=== PATIENT | female | born 1955 | race Caucasian/White ===

== ENCOUNTER → 2016-12-15 | Outpatient (CLI) | payer OTHER, MEDICAID | LOC: GIMAGING 14:56 | PROVIDERS: ATTEND Internal Medicine | DX: Z13.83 Encounter for screening for respiratory disorder NEC (principal) | CPT/HCPCS: 71020-PO ==

== ENCOUNTER 2017-03-03 12:57 | Emergency (ER) | payer OTHER, MEDICAID ==
[2017-03-03 13:14] VITALS: RESP 20; TEMP 98
[2017-03-03] MEDS ORDERED: IPRATROPIUM/ALBUTEROL 3 ML DEYVIAL IH ONE (14:02)
--- NOTE | 2017-03-03 14:06 | EDPHY ---
H & P Stated Complaint: here for multi system complaints- please call [phone] Source: Patient - Personal History Current Tetanus Diphtheria and Acellular Pertussis (TDAP): Unsure - Medical/Surgical History Hx Asthma: Yes Hx Chronic Respiratory Disease: No Hx Diabetes: No Hx Cardiac Disease: No Hx Renal Disease: No Hx Cirrhosis: No Hx Alcoholism: No Hx HIV/AIDS: No Hx Splenectomy or Spleen Trauma: No Other PMH: aortic iliac stents, cardiac cath 05/14/2015,angioseal, laminectomy, right knee injury, LEFT SHOULDER SURG. chronic pain/PTSD/HEad injury - Family History Significant Family History: No pertinent family hx - Social History Smoking Status: Former smoker Time Seen by Provider: 03/03/17 13:28 HPI/ROS: CHIEF COMPLAINT: Sore throat, cough, leg swelling History by patient HISTORY OF PRESENT ILLNESS: 61-year-old woman with a history of coronary artery disease, bilateral femoral stents, former smoker he has been having several months of scratchy throat, hoarse voice and cough and has been on multiple rounds of antibiotics presents today because while she was on vacation she noticed new leg swelling and she has had persistent cough and white exudate in her throat. Patient has been using inhalers and nebulizers felt relief until last night when the nebulizer seem to help somewhat. She denies any fever. She also states that she has been having frequent urination. Patient is somewhat angry and scattered in her history and states that she has a history of a head injury so getting a clear history is difficult. REVIEW OF SYSTEMS: As in HPI, and all other systems reviewed and are negative (Rena Lund) - Physical Exam Exam: General Appearance: Alert, nontoxic appearing, speaking full sentences. Eyes: Pupils equal and round no pallor or injection. ENT, Mouth: Mucous membranes moist. Respiratory: Normal, effort, lungs are clear to auscultation. Diffuse wheezes and rhonchi. Cardiovascular: Regular rate and rhythm. S1, S2 Gastrointestinal: Abdomen is soft and nontender, no masses, bowel sounds normal. Back: No CVA tenderness, no bony tenderness Neurological: Awake, alert and oriented x 3, no pronator drift, normal gait, no pronator drift Skin: Warm and dry, no rashes. Musculoskeletal: Neck is supple nontender. No deformities. Extremitie:s full range of motion, 1+ pitting edema to the knees, DP and PT pulses 2+ and equal bilaterally, feet are warm Psychiatric: Patient has normal affect, there is no agitation. (Rena Lund) Constitutional: Initial Vital Signs Temperature (C) 36.6 C 03/03/17 13:11 Heart Rate 85 03/03/17 13:11 Respiratory Rate 20 03/03/17 13:11 Blood Pressure 125/76 H 03/03/17 13:11 O2 Sat (%) 95 03/03/17 13:11 O2 Delivery Mode Room Air Allergies/Adverse Reactions: Penicillins Allergy (Severe, Verified 12/30/15 11:44) ANAPHYLACTIC meperidine HCl [From Demerol] Allergy (Intermediate, Verified 12/30/15 11:44) ANXIOUS prednisone [Prednisone] Allergy (Intermediate, Verified 12/30/15 11:44) Hives Sulfa (Sulfonamide Antibiotics) Allergy (Intermediate, Verified 12/30/15 11:44) NAUSEA clopidogrel bisulfate [From Plavix] Allergy (Verified 12/30/15 11:44) Quinolones Allergy (Verified 12/30/15 11:44) ofptiray dye Allergy (Uncoded 11/13/15 13:09) steroids Allergy (Uncoded 11/13/15 13:09) Home Medications: Medication Instructions Recorded Aspirin [Aspirin 81mg (*)] 81 mg PO DAILY 05/14/15 Diclofenac Sodium 1% [Voltaren Gel 2 tomasa TP QID 05/14/15 (*)] Ergocalciferol (Vitamin D2) 400 unit PO DAILY 05/14/15 [Vitamin D2] Herbals/Supplements -Info Only 1 ea PO DAILY 05/14/15 Multivitamins [Multivitamin (*)] 1 each PO DAILY 05/14/15 Pantoprazole Sodium [Protonix 40mg 40 mg PO BID 05/14/15 (*)] clonazePAM [Klonopin (*)] 0.5 mg PO QID 05/14/15 oxyCODONE IR [Oxycodone Ir (*)] 30 mg PO Q4H PRN 05/14/15 Hydromorphone HCl [Exalgo] 12 mg PO DAILY 05/15/15 Effient 05/31/15 Neurontin 05/31/15 Clindamycin HCl [Clindamycin] 300 mg PO 12/30/15 Estradiol [Estradiol 1 MG (RX)] 1 mg PO DAILY 12/30/15 Ondansetron Odt [Zofran Odt] 4 mg PO Q6 PRN #10 tab 12/30/15 Medical Decision Making - Diagnostics Imaging Results: Imaging Impressions Chest X-Ray 03/03/17 13:59 Impression: Minimal left basilar atelectasis. Otherwise negative. ED Course/Re-evaluation: 61-year-old woman with coronary disease and vascular disease who presents today with multitude of complaints, in particular cough who is well appearing, without evidence of hypoxia or systemic toxicity and normal vital signs. In order to make sure that the patient's pulmonary symptoms and leg swelling were not related to underlying heart failure ECG, chest x-ray and labs were performed. ECG showed no evidence of acute ischemia. Chest x-ray showed evidence of hyperinflation but no evidence of pneumonia or CHF. I transferred care to Dr. Epperson pending results patient's laboratory tests for final disposition. (Rena Lund) Patient's care transferred to al at 3:30 p.m.. Discussed with the patient the results of her blood tests and x-rays. Overall she is well-appearing and has a normal exam and vital signs. I suggested that her wheezing that improved with albuterol and lack of pulmonary findings on x-ray other than hyperinflation suggests COPD. She has a history of smoking and currently smells like smoke. She denies this. I offered to treat with a short course of steroids which she refused because she states that steroids make her feel crazy. We discussed long versus short-term use. She states that she has been on multiple antibiotics recently provided by her primary physician and that they have not improved her symptoms. She also wanted to provide a stool sample to be checked for C diff. This was done. She also asked me why her face was bruising after Botox injections and we discussed the possible complications and side effects of such injections. She is not happy that we do not have any other options for treatment. She is essentially refusing my treatment plan and does not agree with my diagnosis of COPD. I will refer her back to her primary doctor [facility] at this time. We discussed indications for returning to the emergency department. (Juanito Epperson) Differential Diagnosis: Partial list of the Differential diagnosis considered include but were not limited to; anxiety, COPD, bronchitis, pneumonia, bruising and although unlikely based on the history and physical exam, I also considered PE, acute coronary disease, DVT, cellulitis. I discussed these differential diagnoses and the plan with the patient as well as the usual and expected course. The patient understands that the diagnosis is provisional and that in medicine we are not always correct and that further workup is often warranted. Usual and customary warnings were given. All of the patient's questions were answered. The patient was instructed to return to the emergency department should the symptoms at all worsen or return, otherwise to followup with the physician as we discussed. (Juanito Epperson) - Data Points Laboratory Results: Laboratory Results 03/03/17 14:45 03/03/17 14:45 03/03/17 03/03/17 03/03/17 Unknown 15:05 14:45 WBC RBC Hgb Hct MCV MCH MCHC RDW Plt Count MPV Neut % (Auto) Lymph % (Auto) [place] % (Auto) Eos % (Auto) Baso % (Auto) Nucleat RBC Rel Count Absolute Neuts (auto) Absolute Lymphs (auto) Absolute Monos (auto) Absolute Eos (auto) Absolute Basos (auto) Absolute Nucleated RBC Immature Gran % Immature Gran # Sodium Potassium Chloride Carbon Dioxide Anion Gap BUN Creatinine Estimated GFR Glucose Calcium Magnesium Total Bilirubin Conjugated Bilirubin Unconjugated Bilirubin AST ALT Alkaline Phosphatase Troponin I NT-Pro-B Natriuret Pep Total Protein Albumin Urine Color YELLOW Urine Appearance CLEAR Urine pH 6.5 (5.0-7.5) Ur Specific [place] <= 1.005 (1.002-1.030) Urine Protein NEGATIVE (NEGATIVE) Urine Ketones NEGATIVE (NEGATIVE) Urine Blood NEGATIVE (NEGATIVE) Urine Nitrate NEGATIVE (NEGATIVE) Urine Bilirubin NEGATIVE (NEGATIVE) Urine Urobilinogen 0.2 EU EU (0.2-1.0) Ur Leukocyte Esterase NEGATIVE (NEGATIVE) Urine RBC NONE SEEN /hpf /hpf (0-3) Urine WBC NONE SEEN /hpf /hpf (0-3) Ur Epithelial Cells TRACE /lpf /lpf (NONE-1+) Urine Glucose NEGATIVE (NEGATIVE) Group A Strep Screen NEGATIVE (NEGATIVE) Group A Strep DNA Pending 03/03/17 03/03/17 14:45 14:45 WBC 5.57 10^3/uL 10^3/uL (3.80-9.50) RBC 3.87 10^6/uL L 10^6/uL (4.18-5.33) Hgb 12.7 g/dL g/dL (12.6-16.3) Hct 36.4 % L % (38.0-47.0) MCV 94.1 fL fL (81.5-99.8) MCH 32.8 pg pg (27.9-34.1) MCHC 34.9 g/dL g/dL (32.4-36.7) RDW 12.5 % % (11.5-15.2) Plt Count 178 10^3/uL 10^3/uL (150-400) MPV 9.0 fL fL (8.7-11.7) Neut % (Auto) 60.7 % % (39.3-74.2) Lymph % (Auto) 27.3 % % (15.0-45.0) [place] % (Auto) 9.9 % % (4.5-13.0) Eos % (Auto) 0.5 % L % (0.6-7.6) Baso % (Auto) 1.1 % % (0.3-1.7) Nucleat RBC Rel Count 0.0 % % (0.0-0.2) Absolute Neuts (auto) 3.38 10^3/uL 10^3/uL (1.70-6.50) Absolute Lymphs (auto) 1.52 10^3/uL 10^3/uL (1.00-3.00) Absolute Monos (auto) 0.55 10^3/uL 10^3/uL (0.30-0.80) Absolute Eos (auto) 0.03 10^3/uL 10^3/uL (0.03-0.40) Absolute Basos (auto) 0.06 10^3/uL 10^3/uL (0.02-0.10) Absolute Nucleated RBC 0.00 10^3/uL 10^3/uL (0-0.01) Immature Gran % 0.5 % % (0.0-1.1) Immature Gran # 0.03 10^3/uL 10^3/uL (0.00-0.10) Sodium 136 mEq/L mEq/L (134-144) Potassium 4.1 mEq/L mEq/L (3.5-5.2) Chloride 102 mEq/L mEq/L (97-110) Carbon Dioxide 24 mEq/l mEq/l (22-31) Anion Gap 10 mEq/L mEq/L (8-16) BUN 11 mg/dL mg/dL (7-23) Creatinine 0.7 mg/dL mg/dL (0.6-1.0) Estimated GFR > 60 Glucose 96 mg/dL mg/dL (70-100) Calcium 8.3 mg/dL L mg/dL (8.5-10.4) Magnesium 1.8 mg/dL mg/dL (1.6-2.3) Total Bilirubin 0.4 mg/dL mg/dL (0.1-1.4) Conjugated Bilirubin 0.2 mg/dL mg/dL (0.0-0.5) Unconjugated Bilirubin 0.2 mg/dL mg/dL (0.0-1.1) AST 22 IU/L IU/L (14-46) ALT 39 IU/L IU/L (9-52) Alkaline Phosphatase 49 IU/L IU/L (38-126) Troponin I < 0.012 ng/mL ng/mL (0-0.034) NT-Pro-B Natriuret Pep 371 pg/mL H pg/mL (0-125) Total Protein 5.8 g/dL L g/dL (6.3-8.2) Albumin 3.5 g/dL g/dL (3.5-5.0) Urine Color Urine Appearance Urine pH Ur Specific [place] Urine Protein Urine Ketones Urine Blood Urine Nitrate Urine Bilirubin Urine Urobilinogen Ur Leukocyte Esterase Urine RBC Urine WBC Ur Epithelial Cells Urine Glucose Group A Strep Screen Group A Strep DNA Medications Given: Discontinued Medications Albuterol/Ipratropium (Duoneb) 3 ml IH EDNOW ONE Stop: 03/03/17 14:03 Last Admin: 03/03/17 14:59 Dose: 3 ml Departure - Departure Disposition: Home, Routine, Self-Care Clinical Impression: Reactive airway disease Qualifiers: Asthma severity: mild persistent Asthma complication type: with acute exacerbation Qualified Code(s): J45.31 - Mild persistent asthma with (acute) exacerbation Condition: Fair Instructions: Reactive Airways Disease (ED) Referrals: NONE *PRIMARY CARE P,. [Primary Care Provider] - As per Instructions Lalito Acuna MD [Medical Doctor] - As per Instructions
--- NOTE | 2017-03-03 14:50 | CPEKG ---
Heart Rate: 68 RR Interval: 882 P-R Interval: 176 QRSD Interval: 90 QT Interval: 404 QTC Interval: 430 P [place]: 64 QRS [place]: 3 T Wave [place]: 33 EKG Severity - NORMAL ECG - EKG Impression: SINUS RHYTHM Electronically Signed By: Srinivasan Pelaez 05-Mar-2017 11:23:19
[2017-03-03 14:53] LABS: % IMMATURE GRANULYOCYTES 0.5 % (0.0-1.1); ABSOLUTE IMMATURE GRANULOCYTES 0.03 10^3/uL (0.00-0.10); ADD DIFF? NO; ADD MORPH? NO; ADD SCAN? NO; ATYPICAL LYMPHOCYTE FLAG 10 (0-99); FRAGMENT RBC FLAG 0 (0-99); HEMATOCRIT 36.4 % (38.0-47.0); HEMOGLOBIN 12.7 g/dL (12.6-16.3); LEFT SHIFT FLG 0 (0-99); LIPEMIA HEMOLYSIS FLAG 90 (0-99); MEAN CELL HEMOGLOBIN 32.8 pg (27.9-34.1); MEAN CELL HEMOGLOBIN CONCENTR. 34.9 g/dL (32.4-36.7); MEAN CELL VOLUME 94.1 fL (81.5-99.8); PLATELET CLUMPS FLAG 10 (0-99); PLATELET COUNT 178 10^3/uL (150-400); RED BLOOD CELL COUNT 3.87 10^6/uL (4.18-5.33); RED CELL DISTRIBUTION WIDTH 12.5 % (11.5-15.2)
[2017-03-03 15:05] LABS: ALANINE AMINOTRANSFERASE 39 IU/L (9-52); ALBUMIN 3.5 g/dL (3.5-5.0); ALKALINE PHOSPHATASE 49 IU/L (38-126); ANION GAP 10 mEq/L (8-16); ASPARTATE AMINOTRANSFERASE 22 IU/L (14-46); BILIRUBIN,TOTAL 0.4 mg/dL (0.1-1.4); BILIRUBIN-CONJUGATED 0.2 mg/dL (0.0-0.5); BILIRUBIN-UNCONJUGATED 0.2 mg/dL (0.0-1.1); CALCIUM 8.3 mg/dL (8.5-10.4); CARBON DIOXIDE 24 mEq/l (22-31); CHLORIDE 102 mEq/L (97-110); CREATININE 0.7 mg/dL (0.6-1.0); GLOMERULAR FILTRATION RATE > 60; GLUCOSE 96 mg/dL (70-100); MAGNESIUM 1.8 mg/dL (1.6-2.3); POTASSIUM 4.1 mEq/L (3.5-5.2); SODIUM 136 mEq/L (134-144); TOTAL PROTEIN 5.8 g/dL (6.3-8.2)
[2017-03-03 15:09] LABS: COLOR YELLOW; LEUKOCYTE ESTERASE,URINE NEGATIVE (NEGATIVE); NITRITE,URINE NEGATIVE (NEGATIVE); PH,URINE 6.5 (5.0-7.5)
[2017-03-03 15:17] LABS: RBC,URINE NONE SEEN /hpf (0-3); WBC,URINE NONE SEEN /hpf (0-3)
[2017-03-03 15:17] LABS: TROPONIN I < 0.012 ng/mL (0-0.034)
[2017-03-03 16:49] VITALS: BP 130/78; PULSE 80; O2SAT 93
== END 2017-03-03 16:14 | disposition home or self-care (01) ==
LOC: CED 12:57
DX: J45.31 Mild persistent asthma with (acute) exacerbation (principal); I25.10 Atherosclerotic heart disease of native coronary artery without angina pectoris; Z79.82 Long term (current) use of aspirin; Z87.891 Personal history of nicotine dependence; Z95.5 Presence of coronary angioplasty implant and graft
CPT/HCPCS: 71020-PO; 80048-PO; 80076-PO; 81003-PO; 81015-PO; 83735-PO; 83880-PO; 84484-PO; 85025-PO; 87880-PO

== ENCOUNTER → 2017-03-26 | Outpatient (CLI) | payer OTHER, MEDICAID | LOC: BRMIMAGING 09:42 | PROVIDERS: ATTEND Nurse Practitioner | DX: Z12.31 Encounter for screening mammogram for malignant neoplasm of breast (principal); Z13.820 Encounter for screening for osteoporosis; M85.80 Other specified disorders of bone density and structure, unspecified site; Z78.0 Asymptomatic menopausal state; Z82.62 Family history of osteoporosis; Z79.890 Hormone replacement therapy | CPT/HCPCS: 77080; G0204 ==

== ENCOUNTER → 2017-11-06 | Outpatient (CLI) | payer OTHER, MEDICAID | LOC: GIMAGING 12:46 | PROVIDERS: ATTEND Registered Nurse | DX: J98.09 Other diseases of bronchus, not elsewhere classified (principal) | CPT/HCPCS: 71046-PO ==

== ENCOUNTER 2018-04-04 08:40 | Inpatient (IN) | payer OTHER, MEDICAID ==
--- NOTE | 2018-04-04 09:51 | EDPHY ---
H & P Smoking Status: Former smoker Time Seen by Provider: 04/04/18 09:27 HPI/ROS: CHIEF COMPLAINT: Headache, dizziness, weakness HISTORY OF PRESENT ILLNESS: 62-year-old female presents to the emergency department by private vehicle complaining of severe headache and dizziness. Symptoms began over 3 weeks ago. She states that she was getting out of a car and developed dizziness and pain in the right side of her head. She has seen by a neurologist. She has been seen by ENT twice. She has seen her primary care provider for this multiple times. She states "I just can't take it anymore ". She denies any reported trauma. She was told that this could be related to a sinus infection and has bee on 2 rounds of antibiotics. The she states that this all started shortly after she had some allergy testing which caused her to have multiple episodes of vomiting. She has not vomited since this headache started. She has taken numerous allergy medications without relief. No visual changes. She has chronic neck and back pain. She feels like her neck is very stiff. Denies abdominal pain. She overall feels weak REVIEW OF SYSTEMS: Constitutional: No fever, no chills. Eyes: No double or blurry vision. ENT: No sore throat. Respiratory: No cough, no shortness of breath. Cardiac: No chest pain. Gastrointestinal: No abdominal pain, vomiting or diarrhea. Genitourinary: No dysuria. Musculoskeletal: No neck or back pain. Skin: No rashes. Neurological: headache. (MichelineCiara) Past Medical/Surgical History: Chronic neck and back pain, narcotic dependence, aortic iliac stents, cardiac catheterization 2014, orthopedic surgeries, laminectomy, head injury, PTSD ( JeannineCiara lutz) Social History: Single and lives in [place]. She is retired nurse. (JeannineCiara lutz) Physical Exam: General Appearance: Alert, no distress. Resting a darkened room. Eyes: Pupils equal and round. Extraocular motions are all intact. ENT: Mouth: Mucous membranes moist. Respiratory: No wheezing, rhonchi, or rales, lungs are clear to auscultation. Cardiovascular: Regular rate and rhythm. Gastrointestinal: Abdomen is soft and nontender, no masses, no rebound or guarding, bowel sounds normal. Neurological: Alert and oriented x 3, cranial nerves II through XII grossly intact Skin: Warm and dry, no rashes. Musculoskeletal: Nontender to palpate along the cervical, thoracic or lumbar spine. Neck is supple. Extremities: Full range of motion and no peripheral edema. Psychiatric: Patient is oriented X 3, there is no agitation. (Ciara Tobias) Constitutional: Initial Vital Signs Temperature (C) 36.7 C 04/04/18 08:42 Heart Rate 101 H 04/04/18 08:42 Respiratory Rate 18 04/04/18 08:42 Blood Pressure 158/84 H 04/04/18 08:42 O2 Sat (%) 96 04/04/18 08:42 O2 Delivery Mode Room Air O2 (L/minute) 2 Allergies/Adverse Reactions: Penicillins Allergy (Severe, Verified 04/04/18 08:45) ANAPHYLACTIC meperidine HCl [From Demerol] Allergy (Intermediate, Verified 04/04/18 08:45) ANXIOUS prednisone [Prednisone] Allergy (Intermediate, Verified 04/04/18 08:45) Hives Sulfa (Sulfonamide Antibiotics) Allergy (Intermediate, Verified 04/04/18 08:45) NAUSEA clopidogrel bisulfate [From Plavix] Allergy (Verified 04/04/18 08:45) ioversol [From Optiray 160] Allergy (Verified 04/05/18 16:30) Quinolones Allergy (Verified 04/04/18 08:45) steroids Allergy (Uncoded 11/13/15 13:09) Home Medications: Medication Instructions Recorded Albuterol [Proventil Inhaler HFA 1 - 2 puffs IH Q4H PRN 04/04/18 (*)] Diclofenac Sodium 1% [Voltaren Gel 4 gm TP QID PRN 04/04/18 (*)] Fluticasone/Salmeter 250/50Mcg 1 puffs IH BID PRN 04/04/18 [Advair 250/50 (*)] Naratriptan HCl [Amerge] 2.5 mg PO ONCE PRN 04/04/18 Pantoprazole Sodium [Protonix 40mg 40 mg PO BIDMEAL 04/04/18 (*)] morphINE SR [MS Contin/Oramorph 60 60 mg PO BID@06,18 04/04/18 mg (*)] oxyCODONE IR [Oxycodone Ir (*)] 10 mg PO HS PRN 04/04/18 oxyCODONE IR [Oxycodone Ir (*)] 10 mg PO QID@06,10,14,18 04/04/18 Medical Decision Making - Diagnostics Imaging: Discussed imaging studies w/ director call Radiologist, I viewed and interpreted images myself - Diagnostics Imaging Results: Imaging Impressions Therapeutic Injection 04/05/18 08:37 Impression: C7-T1 epidural steroid injection performed, as above. Face CT 04/05/18 15:02 Impression: 1. Suspect dental caries involving the crowns of the right 1st and 2nd premolars in the mandibular arch (#28 and 29). 2. No evidence of osteomyelitis, subperiosteal abscess, or mass. 3. Patent venous system and carotid arteries. Findings discussed with physician, Dann Ward M.D., on April 05, 2018 at 1752. ED Course/Re-evaluation: 62-year-old female presents emergency department with severe chronic right- sided headache for the last 3-4 weeks. She has been seen by neurologist as well as primary care provider multiple times. She has been scoped by ENT twice. She has been on multiple antibiotics. CT imaging of the brain as well as CTA of the head neck reveals no evidence of intracranial bleeding. She has significant degenerative changes in the cervical spine and specifically has right-sided severe neural foraminal stenosis at C4-5. The patient was given IV 5 mg Valium without relief. Patient has a history of chronic pain and she took her own morphine and oxycodone as scheduled. The patient does not feel that her pain is adequately controlled. She does not feel comfortable going home. Patient will be admitted to the hospitalist for pain management. I also spoke with the on-call neurosurgeon, Dr. Keith Goncalves , who reviewed will review the patient's CT scan but does not feel that her headache is likely related to degenerative changes in her cervical spine. She likely will require MRI of the cervical spine while she is in the hospital. I do not think these images need to be done in the emergency department. ESR and CRP are both within normal limits. CBC and chemistries are normal. The case was discussed with Dr. Evaristo Bernstein, secondary supervising physician, who did not directly evaluate the patient but agrees with treatment and plan. ( iCara Tobias) I did not see this patient while she was in the emergency department. However her care was discussed with the PA while the patient was in the department. I agree with treatment plan and management (Evaristo Bernstein) Differential Diagnosis: Headache including but not limited to subarachnoid hemorrhage, migraine headache , tension headache and infectious causes such as meningitis, pharyngitis and sinusitis. (Ciara Tobias) - Data Points Laboratory Results: Laboratory Results 04/04/18 09:53 04/04/18 09:53 Medications Given: Hydrocodone Bitart/Acetaminophen ([place] 5/325) 1 - 2 tab PO Q3HRS PRN PRN Reason: Pain, Moderate Able to Take PO Stop: 04/14/18 16:36 Last Admin: 04/05/18 15:54 Dose: 2 tab Diazepam (Valium) 5 mg PO Q6HRS PRN PRN Reason: Anxiety, Able to Take PO Stop: 10/02/18 15:01 Last Admin: 04/05/18 15:53 Dose: 5 mg Doxycycline Hyclate (Doxycycline Hyclate) 100 mg PO BID VARGAS PRN Reason: Protocol Stop: 05/05/18 20:59 Last Admin: 04/05/18 21:03 Dose: 100 mg Hydromorphone HCl (Dilaudid) 0.5 - 1 mg IVP Q2HRS PRN PRN Reason: Pain, Severe Stop: 04/14/18 16:36 Last Admin: 04/05/18 12:11 Dose: 1 mg Methocarbamol (Robaxin) 750 mg PO TID PRN PRN Reason: muscle pain Stop: 10/01/18 21:59 Last Admin: 04/05/18 21:03 Dose: 750 mg Morphine Sulfate (Ms Contin/Oramorph) 60 mg PO BID@,18 VARGAS Stop: 04/14/18 17:59 Last Admin: 04/05/18 18:14 Dose: 60 mg Oxycodone HCl (Oxycodone Ir) 5 - 10 mg PO Q3HRS PRN PRN Reason: Pain, Severe Able to Take PO Stop: 04/14/18 16:36 Last Admin: 04/05/18 21:03 Dose: 10 mg Oxycodone HCl (Oxycodone Ir) 10 mg PO QID@06,10,14,18 VARGAS Stop: 04/14/18 17:59 Last Admin: 04/05/18 18:14 Dose: 10 mg Pantoprazole Sodium (Protonix) 40 mg PO BIDMEAL VARGAS Stop: 10/01/18 17:59 Last Admin: 04/05/18 18:14 Dose: 40 mg Discontinued Medications Clonazepam (Klonopin) 0.5 mg PO ONCE ONE Stop: 04/04/18 20:24 Last Admin: 04/04/18 21:58 Dose: 0.5 mg Diazepam (Valium) 5 mg IVP EDNOW ONE Stop: 04/04/18 14:15 Last Admin: 04/04/18 14:18 Dose: 5 mg Diphenhydramine HCl (Benadryl Injection) 25 mg IVP EDNOW ONE Stop: 04/04/18 11:01 Last Admin: 04/04/18 11:07 Dose: 25 mg Diphenhydramine HCl (Benadryl Injection) 50 mg IVP ONCE ONE Stop: 04/05/18 15:47 Last Admin: 04/05/18 15:53 Dose: 50 mg Hydromorphone HCl (Dilaudid) 1 mg IVP EDNOW ONE Stop: 04/04/18 10:05 Last Admin: 04/04/18 10:12 Dose: 1 mg Morphine Sulfate (Ms Contin/Oramorph) 60 mg PO ONCE ONE Stop: 04/04/18 11:01 Last Admin: 04/04/18 11:36 Dose: 60 mg Oxycodone HCl (Oxycodone Ir) 10 mg PO EDNOW ONE Stop: 04/04/18 11:03 Last Admin: 04/04/18 11:06 Dose: 10 mg Oxycodone HCl (Oxycodone Ir) 10 mg PO ONCE ONE Stop: 04/04/18 15:40 Last Admin: 04/04/18 15:44 Dose: 10 mg Departure - Departure Disposition: [facility] Acute Clinical Impression: Dizziness Headache Qualifiers: Headache type: unspecified Headache chronicity pattern: acute headache Intractability: intractable Qualified Code(s): R51 - Headache Condition: Good
[2018-04-04] MEDS ORDERED: HYDROmorphONE/DILAUDID 1 MG/ML INJ IVP ONE (10:04)
[2018-04-04 10:05] LABS: PLATELET COUNT 181 10^3/uL (150-400)
[2018-04-04] MEDS ORDERED: morphINE SR 60 MG TAB PO ONE (11:00)
[2018-04-04] MEDS ORDERED: oxyCODONE IR 5 MG TAB PO ONE ×2 (11:02→15:39)
[2018-04-04] MEDS ORDERED: IOPAMIDOL (ISOVUE 370) 100 ML BTL IV ONE (11:56)
[2018-04-04] MEDS ORDERED: DIAZEPAM 5 MG/ML 1 ML SYR IVP ONE (14:14)
[2018-04-04] MEDS ORDERED: ONDANSETRON 4 MG/2 ML VIAL IVP PRN (16:36)
[2018-04-04] MEDS ORDERED: ONDANSETRON DISINTEGRATING 4 MG TAB PO PRN (16:36)
[2018-04-04] MEDS ORDERED: Naratriptan Hcl [Amerge] 2.5 MG PO PRN (16:37)
[2018-04-04] MEDS ORDERED: FLUTICASONE/SALMETER 250/50MCG DISKUS IH PRN (16:37)
[2018-04-04] MEDS ORDERED: oxyCODONE IR 5 MG TAB PO PRN (16:37)
[2018-04-04] MEDS ORDERED: ALBUTEROL 60 PUFFS/8 GM MDI IH PRN (16:37)
[2018-04-04] MEDS ORDERED: ACETAMINOPHEN 325 MG TAB PO PRN (16:37)
[2018-04-04] MEDS: oxyCODONE IR 5 MG TAB PO SCH (16:53)
[2018-04-04] MEDS: PANTOPRAZOLE SODIUM 40 MG TAB PO SCH ×2 (16:53→16:54)
--- NOTE | 2018-04-04 17:12 | GHP ---
[f rep st] HISTORY AND PHYSICAL DATE OF ADMISSION: 04/04/2018 CHIEF COMPLAINT: Headache. HISTORY OF PRESENT ILLNESS: This is a 62-year-old female with a history of multiple spinal surgeries who presents with a headache. This started on March 10 suddenly. Since then, she has seen her [facility] Physician a few times. She had a brain MRI, which was performed here on March 11. This showed a cyst in the inferior aspect of the right basal ganglia, but nothing additional. She additi onally saw Dr. Evaristo Clancy who performed a laryngoscopy multiple times looking for a sinus infection. He did not see anything clear. She has had a few courses of Z-Mark without improvement. She takes chronic narcotics, has continued these including morphine 60 twice daily as well as oxycodone multipl e times throughout the day. She has a history of a cervical spine fusion in 2000. This was C5 and 6 . Her headache is associated with multiple additional complaints including nausea, vomiting, she tho ught she was constipated at one point, she has chronic numbness in her upper extremities, which is wo rse at night. She does report new bilateral symmetric upper extremity weakness. She has not had any changes in her vision. She describes the pain being on the right side of her head and face, which i s worse when she turns her head to the right or to the left. PAST MEDICAL/SURGICAL HISTORY: 1. Chronic pain on continuous narcotics. 2. Peripheral vascular disease as well as coronary artery disease, no intervention. 3. Aortic insufficiency. 4. C5-6 fusion. 5. Lumbar stenosis status post fusion. 6. Arthritis. 7. GERD. 8. Hyperlipidemia. MEDICATIONS: Please see medication reconciliation. ALLERGIES: Penicillin, Demerol, prednisone, sulfa, Plavix, quinolones, steroids. FAMILY HISTORY: Reviewed and noncontributory. SOCIAL HISTORY: She lives by herself. She does not drink or smoke. 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 REVIEW OF SYSTEMS: 10-point Review of Systems is conducted and is negative except per HPI. PHYSICAL EXAM: VITAL SIGNS: Blood pressure 133/77, heart rate 64, respiration rate 18, saturating 9 3% on room air. Temperature 36.6. GENERAL: The patient is a pleasant female who appears somewhat u ncomfortable intermittently holding the right side of her face in mild distress. HEENT: Shows her t o be normocephalic, atraumatic. CARDIOVASCULAR: Regular rate and rhythm. There are no murmurs, rub s, or gallops. PULMONARY: Lungs clear to auscultation bilaterally. ABDOMEN: Soft, nontender, nond istended. SKIN: Shows no rash. : No Rojas. NEUROLOGIC EXAM: Shows her to be alert and oriente d x3. Cranial nerves 2 through 12 are grossly intact minus some subjective numbness on the right sally e of her face. Strength in her biceps and triceps is weak, but symmetric bilaterally in her hands th at is strong. She has no subjective sensation loss in her upper extremities. PSYCHIATRIC: Shows her to be mildly distressed, otherwise, her mood and affect are normal. LABORATORY DATA: CBC is normal. ESR is 10, CRP is 6, basic metabolic panel is normal. DATA: 1. Discussed with Ciara Ybarra, will admit to med/surg with a Neurosurgery consult. 2. I personally reviewed and interpreted her chest x-ray. This shows mild bronchitis. 3. I reviewed her head CT scan. This shows no sinusitis, nothing acute. 4. I reviewed her head and neck CT angiograms. This shows C4 through 5 moderate central canal steno sis with severe right neural foraminal stenosis, with both the CT angiogram portion of the head and n domi being normal. IMPRESSION AND PLAN: 1. Headache/neck pain: Unclear etiology. She has a right basal ganglia cyst, which I do not believ e it is causing this pain. She does have a right-sided C4-5 foraminal stenosis, this is potentially implicated. Will order an MRI of her cervical spine to further evaluate. Dr. Goncalves with Neurosurger y has already been consulted, he will see the patient in consultation. She does not have any red fla g neurologic signs. Could consider involving Neurology if her neck pathology is not felt to be the c ause of her pain. Otherwise for now, will consider high dosed outpatient narcotics give her addition al medications for pain relief. 2. Chronic pain on continuous narcotics: We will continue these. 3. Gastroesophageal reflux disease: Protonix. 4. Peripheral vascular disease and coronary artery disease: I do not see that she is on aspirin. Alcides perkins discuss this with her further. 5. Venous thromboembolism risk is moderate. She is admitted, and obvious if she stays beyond 1 day she would need venous thromboembolism prophylaxis. /[id number]/MODL
[2018-04-04] MEDS: morphINE SR 60 MG TAB PO SCH (18:02)
[2018-04-04] MEDS: METHOCARBAMOL 750 MG TAB PO PRN (18:43)
[2018-04-04] MEDS: oxyCODONE IR 5 MG TAB PO PRN (20:10)
[2018-04-04] MEDS ORDERED: clonazePAM 0.5 MG TAB PO ONE (20:23)
[2018-04-05] MEDS: oxyCODONE IR 5 MG TAB PO SCH ×5 (00:59→18:14)
[2018-04-05] MEDS: oxyCODONE IR 5 MG TAB PO PRN ×5 (01:02→21:03)
[2018-04-05] MEDS: morphINE SR 60 MG TAB PO SCH ×2 (05:51→18:14)
[2018-04-05] MEDS: PANTOPRAZOLE SODIUM 40 MG TAB PO SCH ×2 (06:22→18:14)
[2018-04-05] MEDS: METHOCARBAMOL 750 MG TAB PO PRN ×3 (07:50→21:03)
--- NOTE | 2018-04-05 09:54 | GCON ---
[f rep st] CONSULTATION NEUROSURGERY CONSULTATION NOTE CHIEF COMPLAINT: Neck pain and scapular pain. HISTORY OF PRESENT ILLNESS: This is a 62-year-old female who has a prior cervical fusion at C5-6, th at was performed in 1998 and 2000 by an outside surgeon. She states that she was doing well until , when she states that she stepped out of her car and had extreme right-sided neck pain and r ight-sided arm pain that radiated to mostly her scapular region. The patient also states that she chung s had some swelling and pain in the right side of her face, as well as her ear. She came in to the ospital last night with more severe worsening of this pain. Neurosurgery service was consulted origi ruslan for the patient having a severe headache, but later we were consulted due to some adjacent leve l segment disease that was seen on her CT scan at C4-5. Currently the patient states that she has aw ful pain all over. She states that she does have weakness in her arms, but also states that she has a biceps tendon rupture in her right arm, and this contributes to some of her weakness in her right a rm. Mostly, she states she has excruciating pain in the right side of her neck going down to her sca pular region, and sometimes all the way down her arm into her hands. She denies any inciting event, such as any falls or recent trauma. She denies any loss of bowel or bladder control. She denies any problems with her legs. REVIEW OF SYSTEMS: All pertinent positive and negative review of systems are as stated in the HPI. PAST MEDICAL HISTORY: The patient has a past medical history of cervical stenosis with radiculopathy at C5-6 and chronic pain, peripheral vascular disease, as well as coronary artery disease, aortic in sufficiency, lumbar stenosis, status post fusion, arthritis, GERD, and hyperlipidemia. CURRENT HOME MEDICATIONS: Please see the current home medication reconciliation report. FAMILY HISTORY: Reviewed and is noncontributory to this admission. SOCIAL HISTORY: Patient lives by herself. She denies any alcohol or tobacco use. 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 ALLERGIES: Patient has allergies to penicillin, demerol, prednisone, sulfa, Plavix, quinolones, and steroids except for Kenalog. OBJECTIVE: VITAL SIGNS: Blood pressure 101/55, heart rate 63, respiratory rate 16, O2 saturation is 94% on room air, temperature is 36.8 degrees Celsius. CONSTITUTIONAL: Patient is an alert and orie nted, well-developed, well-nourished female, in no acute distress. She is speaking fluently. She is moving all extremities x4 to command. HEENT: Head is normocephalic, atraumatic. Eyes: Pupils are equal and reactive to light and accommodation. Extraocular muscles are intact. NECK: Tender to pa lpation over the right paracervical muscles in midline. She is less tender over the left side of her cervical spine and paracervical muscles. She does have full range of motion, but this is with pain. MUSCULOSKELETAL: Gross neurologic motor exam bilateral upper extremities are 5/5, equal in strengt h, except for her right biceps, which she noted to have a biceps tendon rupture. Her arms often antonella e during her exam due to pain. Otherwise though her muscle groups are 5/5 and equal in strength in d eltoids, triceps, wrist extensors, flexors, interossei and programming internship. There is negative Ivette. Deep t endon reflexes are 2+ bilaterally in the triceps and the brachial radialis. Bilateral lower extremit ies are 5/5 and equal in strength in all muscle groups, including quadriceps, hamstrings, dorsiflexio n, plantar flexion, and EHL. EXTREMITIES: There is no cyanosis or edema noted. NEUROLOGIC: Crania l nerves 2 through 12 are grossly intact. Tongue protrudes midline. Palate rises symmetrically. Th ere is no facial droop. Speech is fluent. Hearing is grossly intact. Accessory muscles are 5/5 and equal in strength. LABORATORY DATA: Laboratory data taken on 04/04/2018, shows a white blood cell count of 6.28, red ce ll count 4.64, and platelets 181. Sodium 139, potassium 4.5, chloride 108, carbon dioxide 24, BUN 14 , creatinine 0.7, glucose 89, calcium 9.4. C-reactive protein 6.1. DIAGNOSTIC IMAGING REVIEW: MRI of the cervical spine was performed and shows worse central canal and right foraminal stenosis at C4-5 above the level of the patient's fusion. Stable right C6-7 foramin al stenosis. Head CT was performed and shows no hemorrhage or mass effect, and no sinusitis. Neck CTA was performed and shows mild atherosclerotic disease, left carotid bulb greater than right, without flow-limiting stenosis. No evidence of carotid or vertebral flow-limiting stenosis, occlusio n or dissection. At C4-5, there is moderate central canal stenosis and moderate to severe right neur al foraminal stenosis secondary to degenerative grade 1 retrolisthesis and right uncovertebral osteop hytes. There was a previous anterior cervical diskectomy and fusion at C5-6. CT angiogram of the brain shows a negative CT angiogram of the brain. ASSESSMENT AND PLAN: This is a 62-year-old female who presented with right-sided neck pain, headache s and dizziness, who on MRI of the cervical spine shows some adjacent segment disease at C4-5, worse on the right with some severe central canal stenosis. This can likely be the cause of some of her ne ck pain and radiating pain to her scapula. However, we did tell her that this is not likely the caus e of her facial pain and would likely defer to her other doctors for workup of this. I did discuss w ith her the options of trying a steroid injection to try to relieve these symptoms. She stated that she was allergic to most steroids, but could tolerate Kenalog. I will order this injection and was h opeful to get it by Interventional Radiology later today or at latest, tomorrow, to see if she gets a response from this. If she gets a good response from this injection, hopefully, this would be all t hat is needed. If the relief from this is good but is short-lived, would likely require an adjacent level fusion sometime down the road, but would follow up with her as an outpatient for this. I will order the injection today and we will follow along to see her response to this. She should also part icipate in PT and OT. The patient was seen by myself and Dr. Goncalves this morning at approximately 7:30 a.m. We will continu e to follow along with this patient. /[id number]/MODL
--- NOTE | 2018-04-05 11:26 | ASMTCMCOM ---
CM Note CM Note Notes: Pt admitted with headached and rt sided neck pain. Neurosurgery consulting. DC plan is TBD. Date Signed: 04/05/2018 11:25 AM Electronically Signed By:Pili Leon LCSW
[2018-04-05] MEDS ORDERED: TRIAMCINOLONE ACETONIDE 200 MG/5 ML MDV IM ONE (11:36)
[2018-04-05] MEDS: HYDROmorphONE/DILAUDID 1 MG/ML INJ IVP PRN (12:11)
--- NOTE | 2018-04-05 14:29 | ASMTCMCOM ---
CM Note CM Note Notes: Reviewed Neurosurgery's consultation as well as PT/OT evaluations. PT recommending home vs home care. Patient also received injection in IR today. Attempted to meet with patient to discuss dispo planning, patient still experiencing severe pain and requested CM to return at a later time. Plan remains to be determined at this time, CM will follow-up when patient is able to participate in discussion. Plan: TBD, possibly HC PT. Date Signed: 04/05/2018 02:28 PM Electronically Signed By:Marian Caputo RN
--- NOTE | 2018-04-05 15:07 | HOSPPROG ---
Hospitalist Progress Note Assessment/Plan: 62 yo F w prolonged ADEN and cervical stenosis cervical stenosis: s/p steroid injection agree unlikely causative of ADEN ADEN: she describes symptoms suggestive of multiple etiologies- odontogenic, tmj, muscle/tension large outpt workuop neg 1. CT maxillofacial to r/o tooth infection start doxy 2. valium prn, w trial now 3. she declines neurontin chronic pain: continue narcotics at home dose proph: add lmwh dispo: change to inpt Subjective: prolonged ADEN. CT images reviewed/interp by me Objective: Vital Signs Temp Pulse Resp BP Pulse Ox 36.6 C 58 L 16 108/64 96 04/05/18 09:17 04/05/18 12:04 04/05/18 12:04 04/05/18 12:04 04/05/18 12:04 04/04/18 04/05/18 04/06/18 05:59 05:59 05:59 Intake Total 1200 860 Balance 1200 860 - Physical Exam Constitutional: no apparent distress Eyes: PERRL, anicteric sclera Ears, Nose, Mouth, Throat: moist mucous membranes, hearing normal Cardiovascular: regular rate and rhythym, no murmur, rub, or gallop Respiratory: no respiratory distress, no rales or rhonchi Gastrointestinal: normoactive bowel sounds, soft, non-tender abdomen Genitourinary: no bladder fullness, No blanco in urethra Skin: warm, normal color Musculoskeletal: full muscle strength, no muscle tenderness Neurologic: AAOx3 Psychiatric: interacting appropriately ICD10 Worksheet Patient Problems: Problems Problem Status Onset Dizziness Acute Headache Acute
[2018-04-05] MEDS ORDERED: IOPAMIDOL (ISOVUE-300) 100 ML BTL ONE (15:09)
[2018-04-05] MEDS: DIAZEPAM 5 MG TAB PO PRN ×2 (15:53→22:12)
[2018-04-05] MEDS: HYDROCODONE/APAP 5/325 TAB PO PRN ×2 (15:54→22:12)
--- NOTE | 2018-04-05 16:11 | PDMN ---
Medical Necessity Medical necessity: [facility] Pain Management and N Neurology GR62 y/o w/ severe H/A and neck pain of unclear etiology, noted to have right basal ganglia cyst, prob unrelated, right sided C4-5 formaminal stenosis, neurosurgery consult - will treat with steroid injection via IR but cont to watch, if does not work need further workup from other specialists. PT/OT ordered, manage pain with high dose opioids, hx PVD and CAD, chronic pain on narcotics, C5-6 fusion. Status change to inpatient 04/05/18 @ 1504 per MD order to cont to monitor, dx and treat
[2018-04-05] MEDS: DOXYCYCLINE HYCLATE 100 MG CAP/TAB PO SCH (21:03)
[2018-04-06] MEDS: oxyCODONE IR 5 MG TAB PO PRN ×2 (01:02→16:52)
[2018-04-06] MEDS: HYDROmorphONE/DILAUDID 1 MG/ML INJ IVP PRN (01:53)
[2018-04-06] MEDS: HYDROCODONE/APAP 5/325 TAB PO PRN ×3 (04:59→12:12)
[2018-04-06] MEDS: DIAZEPAM 5 MG TAB PO PRN ×3 (04:59→20:52)
[2018-04-06] MEDS: morphINE SR 60 MG TAB PO SCH ×2 (06:02→18:25)
[2018-04-06] MEDS: oxyCODONE IR 5 MG TAB PO SCH ×4 (06:02→18:25)
--- NOTE | 2018-04-06 06:51 | NEUSURGPN ---
Assessment/Plan: A: 62 yo F s/p C7-T1 ROBERT with IR done yesterday for right sided neck pain. Imaging shows right C45 foraminal and central stenosis, prior C56 ACDF. P: -Pt received ROBERT yesterday and states her pain is improved slightly but she is now having a lot of neck stiffness. We discussed that the timeline for the injection to kick in fully can be 1-2 weeks and we would like to give the injection more time to take effect. -Continue pain meds, muscle relaxants -PT/OT -Followup with Dr Goncalves in 4 weeks in clinic for re-eval -Call NS with any new/worsening issues -NS will sign off and follow peripherally. -D/w Dr Goncalves Subjective: Pt resting in bed, c/o neck stiffness. Denies any new weakness has tendon rupture in right arm. States the injection seems to have helped a little bit so far but she also has this new neck stiffness since the injection. Objective: AAOx3 NAD VSS MAEx4 CN II-XII grossly intact Motor 5/5 BUE +LT Urinary Catheter in Place: No - Physician Discussed Patient with Dr.: Goncalves Neurosurgery Physical Exam - Vitals, I&O, Labs I and O 04/05/18 04/06/18 04/07/18 05:59 05:59 05:59 Intake Total 1350 Output Total 900 Balance 450 Intake: Oral (ml) 1350 Output: Urine (ml) 900 Toilet 900 Other: Intake Quantity Yes Sufficient Number of Voids Toilet 2 Vital Signs Temp Pulse Resp BP Pulse Ox 36.7 C 64 18 108/65 85 L 04/06/18 04:00 04/06/18 04:00 04/06/18 04:00 04/06/18 04:00 04/06/18 06:39 ICD10 Worksheet Patient Problems: Problems Problem Status Onset Dizziness Acute Headache Acute
[2018-04-06] MEDS: METHOCARBAMOL 750 MG TAB PO PRN ×2 (08:07→14:35)
[2018-04-06] MEDS: DOXYCYCLINE HYCLATE 100 MG CAP/TAB PO SCH (08:07)
[2018-04-06] MEDS: PANTOPRAZOLE SODIUM 40 MG TAB PO SCH ×2 (08:08→18:25)
[2018-04-06] MEDS: ENOXAPARIN 40 MG/0.4 ML SYR SC SCH (08:09)
[2018-04-06] MEDS: DICLOFENAC SODIUM 1% 100 GM GEL TP PRN ×3 (10:08→20:57)
--- NOTE | 2018-04-06 15:25 | HOSPPROG ---
Hospitalist Progress Note Assessment/Plan: 62 yo F w prolonged ADEN and cervical stenosis cervical stenosis: s/p steroid injection ADEN improved ADEN: she describes symptoms suggestive of multiple etiologies- odontogenic, tmj, muscle/tension large outpt workup neg 1. CT maxillofacial neg for infection images reviewed/interp by me 2. valium prn, this has helped 3. she declines neurontin chronic pain: continue narcotics at home dose proph: add lmwh dispo: change to inpt Subjective: pain improved w steroids injection. anxious Objective: Vital Signs Temp Pulse Resp BP Pulse Ox 36.9 C 55 L 18 113/72 94 04/06/18 12:16 04/06/18 12:16 04/06/18 12:16 04/06/18 12:16 04/06/18 12:16 04/05/18 04/06/18 04/07/18 05:59 05:59 05:59 Intake Total 1350 Output Total 900 Balance 450 - Physical Exam Constitutional: no apparent distress, appears nourished Eyes: PERRL, anicteric sclera Ears, Nose, Mouth, Throat: moist mucous membranes, hearing normal Cardiovascular: regular rate and rhythym, no murmur, rub, or gallop, systolic murmur Respiratory: no respiratory distress, no rales or rhonchi Gastrointestinal: normoactive bowel sounds, soft, non-tender abdomen Genitourinary: no bladder fullness Skin: warm Musculoskeletal: full muscle strength ICD10 Worksheet Patient Problems: Problems Problem Status Onset Dizziness Acute Headache Acute
[2018-04-06] MEDS ORDERED: MAGNESIUM HYDROXIDE 30 ML UDCUP PO PRN (18:01)
[2018-04-06] MEDS ORDERED: LACTULOSE 20 GM/30 ML UDCUP PO PRN (18:01)
[2018-04-06] MEDS ORDERED: BISACODYL 10 MG SUPP PR PRN (18:01)
[2018-04-06] MEDS ORDERED: POLYETHYLENE GLYCOL 3350 17 GM PKT PO PRN (18:01)
[2018-04-06] MEDS: SENNOSIDES/DOCUSATE SODIUM TAB PO SCH (20:53)
[2018-04-06] MEDS ORDERED: FLUCONAZOLE 150 MG TAB PO ONE (23:59)
[2018-04-07] MEDS: METHOCARBAMOL 750 MG TAB PO PRN ×2 (00:01→06:04)
[2018-04-07] MEDS: oxyCODONE IR 5 MG TAB PO PRN ×2 (03:03)
[2018-04-07] MEDS: DIAZEPAM 5 MG TAB PO PRN ×2 (03:03→09:15)
[2018-04-07] MEDS: morphINE SR 60 MG TAB PO SCH (06:03)
[2018-04-07] MEDS: oxyCODONE IR 5 MG TAB PO SCH ×2 (06:04→09:16)
[2018-04-07] MEDS: DICLOFENAC SODIUM 1% 100 GM GEL TP PRN (06:06)
[2018-04-07 08:45] VITALS: BP 137/82
[2018-04-07] MEDS: PANTOPRAZOLE SODIUM 40 MG TAB PO SCH (09:15)
[2018-04-07] MEDS: SENNOSIDES/DOCUSATE SODIUM TAB PO SCH (09:17)
[2018-04-07] MEDS: ENOXAPARIN 40 MG/0.4 ML SYR SC SCH (09:18)
--- NOTE | 2018-04-07 09:26 | HOSPPROG ---
Hospitalist Progress Note Assessment/Plan: 62 yo F w prolonged ADEN and cervical stenosis cervical stenosis: s/p steroid injection ADEN improved ADEN: she describes symptoms suggestive of multiple etiologies- odontogenic, tmj, muscle/tension large outpt workup neg 1. CT maxillofacial neg for infection images reviewed/interp by me 2. valium prn, this has helped 3. she declines neurontin chronic pain: continue narcotics at home dose proph: add lmwh dispo: home today > 30 minutes on dc Subjective: feels better. ready for dc Objective: Vital Signs Temp Pulse Resp BP Pulse Ox 36.7 C 79 16 137/82 H 94 04/07/18 08:42 04/07/18 08:42 04/07/18 08:42 04/07/18 08:42 04/07/18 08:42 04/06/18 04/07/18 04/08/18 05:59 05:59 05:59 Intake Total 1350 5700 Output Total 900 Balance 450 5700 - Physical Exam Constitutional: no apparent distress, appears nourished Eyes: PERRL, anicteric sclera Ears, Nose, Mouth, Throat: moist mucous membranes, hearing normal Cardiovascular: regular rate and rhythym, no murmur, rub, or gallop Respiratory: no respiratory distress, no rales or rhonchi Gastrointestinal: normoactive bowel sounds, soft, non-tender abdomen Genitourinary: no bladder fullness, No blanco in urethra Skin: warm, normal color Musculoskeletal: full muscle strength Neurologic: AAOx3 Psychiatric: interacting appropriately Lymph, Heme, Immunologic: no cervical LAD ICD10 Worksheet Patient Problems: Problems Problem Status Onset Dizziness Acute Headache Acute
--- NOTE | 2018-04-07 09:50 | GDS ---
[f rep st] DISCHARGE SUMMARY DISCHARGE DIAGNOSES: 1. Severe headache, likely tension/muscle headache. 2. Central canal and right foraminal stenosis at C4-5 above the level of her C5-C6 prior fusion. 3. Chronic pain with continuous narcotic therapy. HOSPITAL COURSE: Please see admission history and physical by Dr. Evaristo Bernstein. The patient was adm itted on the morning of the , with a headache that has been about a month in nature and severe. She had previously sought care a couple of times. She had a CTA show mild atherosclerotic disease. C4-C5 central canal stenosis. She was seen by Neurosurgery, who recommended a steroid injection, rocio massey she received with improvement, but it did take a couple of days. Alternative causes were consider ed. It did not seem migrainous. She was not febrile or did not have a significant leukocytosis or m eningeal signs. She had a CT of the face showing no evidence of odontogenic cause. The patient, giv en the combination of muscle relaxants and steroid injection, had significant improvement and is disc harged home today with a prescription for muscle relaxants. She was advised of the potential risk of combining those with narcotics, which she takes chronically. She is discharged home with outpatient followup with Neurosurgery. Greater than 30 minutes spent on this discharge. /[id number]/MODL
--- NOTE | 2018-04-07 10:04 | ASMTDCNOTE ---
Case Management Discharge Discharge Order Complete? Answers: Yes Patient to Obtain Answers: Independently Medications Transportation Arranged Answers: Other Notes: self Discharge Comments Notes: Patient discharged home. She has daily caregiver support from [facility] and has notified her caregiver of her discharge. No other needs. Date Signed: 04/07/2018 10:03 AM Electronically Signed By:Ciara Maciel RN
== END 2018-04-07 10:10 | disposition home or self-care (01) | DRG 552 ==
LOC: F1N 16:02 → OBSVTOIN 04-05 15:04
PROVIDERS: ADMIT Student in an Organized Health Care Education/Training Program; ATTEND Student in an Organized Health Care Education/Training Program
PROC: 3E0S33Z Introduction of Anti-inflammatory into Epidural Space, Percutaneous Approach (ICD-10-PCS; principal; 2018-04-05)
DX: M99.71 Connective tissue and disc stenosis of intervertebral foramina of cervical region (principal); G89.29 Other chronic pain; Z98.1 Arthrodesis status; I25.10 Atherosclerotic heart disease of native coronary artery without angina pectoris; K21.9 Gastro-esophageal reflux disease without esophagitis; E78.5 Hyperlipidemia, unspecified; I73.9 Peripheral vascular disease, unspecified; Z87.891 Personal history of nicotine dependence
CPT/HCPCS: 96374; 97161-GP; 97166-GO; 97530-GP; G0378; G8978-GP-CI; G8979-GP-CI; G8987-GO-CJ; G8988-GO-CI; J1170; J1200; J1650; J2405; J3301; J3360; Q9967

== ENCOUNTER 2018-04-29 13:05 | Day surgery (SDC) | payer OTHER, MEDICAID ==
[2018-04-29] MEDS ORDERED: fentaNYL 100 MCG/2 ML INJ IVP PRN (13:26)
[2018-04-29] MEDS ORDERED: NALOXONE HCL 0.4 MG/ML INJ IVP PRN (13:26)
[2018-04-29] MEDS ORDERED: FLUMAZENIL 0.5 MG/5 ML MDV IVP PRN (13:26)
[2018-04-29] MEDS ORDERED: MIDAZOLAM 2 MG/2 ML VIAL IVP PRN (13:26)
[2018-04-29] MEDS ORDERED: NS 1,000 ML IV SCH (13:30)
[2018-04-29] MEDS ORDERED: TRIAMCINOLONE ACETONIDE 200 MG/5 ML MDV IM ONE (14:33)
[2018-04-29] MEDS ORDERED: IOPAMIDOL (ISOVUE-M 300) 15 ML VIAL ONE ×2 (14:33→16:30)
--- NOTE | 2018-04-29 14:33 | PDGENHP ---
History & Physical Chief Complaint: SEVERE RT SIDED HEAD, NECK, ARM PAIN History of Present Illness: S/P C7/T1 INJECTION 04/07. DID NOT HELP PAIN MUCH. Pertinent Past, Social, Family History: ON MULTIPLE PAIN MEDS. Relevant Physical Exam: PAIN INVOLVES ENTIRE RIGHT SIDE AND RIGHT FACE/EYE. Cardiorespiratory Assessment: RRR, CTA
--- NOTE | 2018-04-29 14:34 | PDPROPOC ---
Sedation Plan of Care Sedation Plan of Care: vital signs stable, mental status noted, patient educated of risks, benefits, alternatives, patient can tolerate sedation ASA Classification: ASA 2 Planned drugs: fentanyl, midazolam Mallampati Score: Class 1 Mallampati Reference Image: Patient passed 3-3-2 rule?: Yes
[2018-04-29] MEDS ORDERED: LIDOCAINE 1% 300 MG/30 ML SDV ONE (14:40)
[2018-04-29] MEDS ORDERED: ONDANSETRON 4 MG/2 ML VIAL IVP PRN (15:14)
--- NOTE | 2018-04-29 15:17 | PDRADPN ---
Radiology Procedure Note Date of Procedure: 04/29/18 Radiologist: Christy Escobar Anesthesia: IV Sedation Pre-op Diagnosis: NECK PAIN Post-op Diagnosis: SAME Indication: SEVERE RT SIDED PAIN Procedure: C4-5 RT TFESI Inf/Abcess present in the surg proc area at time of surgery?: No
[2018-04-29 16:17] VITALS: BP 128/58
== END 2018-04-29 16:12 | disposition home or self-care (01) ==
LOC: FIMAGING 13:05
PROVIDERS: ATTEND Neurological Surgery
PROC: 3E0S33Z Introduction of Anti-inflammatory into Epidural Space, Percutaneous Approach (ICD-10-PCS; principal; 2018-04-29 15:20)
DX: M54.12 Radiculopathy, cervical region (principal); R51 Headache; M25.511 Pain in right shoulder; Z98.1 Arthrodesis status
CPT/HCPCS: J2250; J3010; J3301; Q9967

== ENCOUNTER 2018-08-08 10:36 | Inpatient (IN) | payer OTHER, MEDICAID ==
[2018-08-08] MEDS ORDERED: HYDROmorphONE/DILAUDID 2 MG/ML INJ IVP ONE ×3 (11:12→13:53)
[2018-08-08] MEDS ORDERED: NS 1,000 ML IV ONE (11:12)
--- NOTE | 2018-08-08 11:12 | EDPHY ---
HPI/HX/ROS/PE/MDM Narrative: CHIEF COMPLAINT: "I have pain in my head and my back right now and I just want to scream." HPI: The patient is a 62 y/o female with a history of vascular disease and chronic pain with continuous narcotic therapy complaining of severe lower back pain radiating around her left abdomen towards her groin for the last 2 days. She reports the headache has been recurrent over several months and is followed by her neurosurgeon. Her back pain is new and she has not had pain in this location previously. She denies urinary symptoms, weakness, paresthesias, fever , vomiting, diarrhea, cough, chest pain, dyspnea, recent illness, or recent fever. REVIEW OF SYSTEMS: A comprehensive 10 system review of systems is otherwise negative aside from elements mentioned in the history of present illness. PMH: Chronic pain on continuous narcotic, lumbar spinal fusion 2013, C5-C6 fusion, C4-C5 stenosis, peripheral and coronary vascular disease, aortic insufficiency, arthritis, GERD, hyperlipidemia, bilateral aortoiliac stents 2014 revised 5 times SOCIAL HISTORY: Lives alone. Nonsmoker. No alcohol use. Neurosurgeon: Dr. Goncalves. PHYSICAL EXAM: General:Patient is alert, in no acute distress. Sitting in a dark room. ENT:Eyes are normal to inspection. ENT inspection normal. Neck: Normal inspection. Full range of motion. Respiratory:No respiratory distress. Breath sounds normal bilaterally. Cardiovascular: Regular rate and rhythm. Strong peripheral pulses. Normal cap refill. Abdomen:The abdomen is nontender to palpation. There are no peritoneal signs. Back: Normal to inspection. No tenderness to palpation. Skin: Normal color. No rash. Warm and dry. Extremities: Normal appearance. Full range of motion. Neuro: Oriented x3. Normal motor function. Normal sensory function. ED Course: This is a 62 y/o female with a history of chronic pain who presents with a 2- day history of lower back pain radiating around to her left groin. Exam is unremarkable. No evidence of acute cauda equina syndrome. Plan for IV, labs, UA , symptomatic management. 1L IV NS and 1mg IV Dilaudid ordered. Labs unremarkable. Patient continues to complain of pain. Additional 1mg IV Dilaudid ordered. Due to history of aortoiliac stents and vascular disease, I've ordered an abdominal CT for further evaluation. The patient states she has a contrast allergy only to Optiray 160 and does not need pretreatment for any other type of contrast. She also reports she took Benadryl at home this morning in case she needed a scan. Abdominal CT shows constipation, otherwise negative for acute findings. Reassessed patient and discussed findings. She continues to complain of severe pain. 1mg IV Dilaudid ordered. Spoke with hospitalist service. Dr. Xiao accepts admission. - Data Points Imaging Results: Imaging Impressions Abdomen CT 08/08/18 12:18 Impression: 1. No localized intraabdominal inflammatory process. 2. Constipation. No obstruction or appendicitis. 3. Normal caliber atherosclerotic aorta. Findings discussed with emergency department physician, Gorge Cruz MD on August 08, 2018 at 1:23 p.m. Imaging: Discussed imaging studies w/ inbound call center representative Radiologist, I viewed and interpreted images myself Laboratory Results: Laboratory Results 08/08/18 11:28 08/08/18 11:28 08/08/18 08/08/18 11:28 11:28 WBC 6.69 10^3/uL 10^3/uL (3.80-9.50) RBC 4.62 10^6/uL 10^6/uL (4.18-5.33) Hgb 14.9 g/dL g/dL (12.6-16.3) Hct 43.6 % % (38.0-47.0) MCV 94.4 fL fL (81.5-99.8) MCH 32.3 pg pg (27.9-34.1) MCHC 34.2 g/dL g/dL (32.4-36.7) RDW 11.7 % % (11.5-15.2) Plt Count 206 10^3/uL 10^3/uL (150-400) MPV 9.7 fL fL (8.7-11.7) Neut % (Auto) 68.7 % % (39.3-74.2) Lymph % (Auto) 22.6 % % (15.0-45.0) [place] % (Auto) 7.0 % % (4.5-13.0) Eos % (Auto) 0.4 % L % (0.6-7.6) Baso % (Auto) 0.7 % % (0.3-1.7) Nucleat RBC Rel Count 0.0 % % (0.0-0.2) Absolute Neuts (auto) 4.59 10^3/uL 10^3/uL (1.70-6.50) Absolute Lymphs (auto) 1.51 10^3/uL 10^3/uL (1.00-3.00) Absolute Monos (auto) 0.47 10^3/uL 10^3/uL (0.30-0.80) Absolute Eos (auto) 0.03 10^3/uL 10^3/uL (0.03-0.40) Absolute Basos (auto) 0.05 10^3/uL 10^3/uL (0.02-0.10) Absolute Nucleated RBC 0.00 10^3/uL 10^3/uL (0-0.01) Immature Gran % 0.6 % % (0.0-1.1) Immature Gran # 0.04 10^3/uL 10^3/uL (0.00-0.10) Sodium 137 mEq/L mEq/L (135-145) Potassium 4.1 mEq/L mEq/L (3.5-5.2) Chloride 106 mEq/L mEq/L (97-110) Carbon Dioxide 23 mEq/l mEq/l (22-31) Anion Gap 8 mEq/L mEq/L (6-14) BUN 15 mg/dL mg/dL (7-23) Creatinine 0.7 mg/dL mg/dL (0.6-1.0) Estimated GFR > 60 Glucose 93 mg/dL mg/dL (70-100) Calcium 9.4 mg/dL mg/dL (8.5-10.4) Medications Given: Discontinued Medications Diphenhydramine HCl (Benadryl) 50 mg PO EDNOW ONE Stop: 08/08/18 13:27 Last Admin: 08/08/18 13:46 Dose: 50 mg Hydromorphone HCl (Dilaudid) 1 mg IVP EDNOW ONE Stop: 08/08/18 11:13 Last Admin: 08/08/18 11:34 Dose: 1 mg Hydromorphone HCl (Dilaudid) 1 mg IVP EDNOW ONE Stop: 08/08/18 12:19 Last Admin: 08/08/18 12:23 Dose: 1 mg Hydromorphone HCl (Dilaudid) 1 mg IVP EDNOW ONE Stop: 08/08/18 13:54 Last Admin: 08/08/18 14:04 Dose: 1 mg Sodium Chloride (Ns) 1,000 mls @ 0 mls/hr IV EDNOW ONE; Wide Open PRN Reason: Protocol Stop: 08/08/18 11:13 Last Admin: 08/08/18 11:42 Dose: 1,000 mls General Time Seen by Provider: 08/08/18 10:55 Initial Vital Signs: Initial Vital Signs Temperature (C) 36.5 C 08/08/18 10:38 Heart Rate 96 08/08/18 10:38 Respiratory Rate 18 08/08/18 10:38 Blood Pressure 141/88 H 08/08/18 10:38 O2 Sat (%) 96 08/08/18 10:38 O2 Delivery Mode Room Air Allergies/Adverse Reactions: Penicillins Allergy (Severe, Verified 08/08/18 10:36) ANAPHYLACTIC meperidine HCl [From Demerol] Allergy (Intermediate, Verified 08/08/18 10:36) ANXIOUS prednisone [Prednisone] Allergy (Intermediate, Verified 08/08/18 14:20) Other-Enter Comments Sulfa (Sulfonamide Antibiotics) Allergy (Intermediate, Verified 08/08/18 10:36) NAUSEA clopidogrel bisulfate [From Plavix] Allergy (Verified 08/08/18 14:20) Rash ioversol [From Optiray 160] Allergy (Verified 08/08/18 10:36) Quinolones Allergy (Verified 08/08/18 14:20) Other-Enter Comments Home Medications: Medication Instructions Recorded Diclofenac Sodium 1% [Voltaren Gel 4 gm TP QID PRN 04/04/18 (*)] Pantoprazole Sodium [Protonix 40mg 40 mg PO BIDMEAL 04/04/18 (*)] morphINE SR [MS Contin/Oramorph 60 60 mg PO BID@,18 04/04/18 mg (*)] oxyCODONE IR [Oxycodone Ir (*)] 10 mg PO HS PRN 04/04/18 oxyCODONE IR [Oxycodone Ir (*)] 10 mg PO QID@06,10,14,18 04/04/18 Aspirin [Aspirin 81mg (*)] 81 mg PO Q2D 04/07/18 Methocarbamol [Robaxin 750 mg (*)] 750 mg PO TID PRN #60 tab 04/07/18 Doxepin HCl [Silenor] 3 mg PO HS 08/08/18 Fexofenadine HCl [Leonarda Allergy] 180 mg PO DAILY 08/08/18 Gabapentin [Neurontin 300 MG (*)] 300 mg PO HS 08/08/18 Departure - Departure Disposition: [facility] Inpatient Acute Clinical Impression: Neck pain Back pain Qualifiers: Back pain location: low back pain Chronicity: unspecified Back pain laterality : left Sciatica presence: without sciatica Qualified Code(s): M54.5 - Low back pain Condition: Fair Report Scribed for: Gorge Cruz Report Scribed by: Dayanara Baker Date of Report: 08/08/18 Time of Report: 11:18 Physician Review and Approval Statement: Portions of this note were transcribed by an ED scribe. I personally performed the history, physical exam, and medical decision making; and confirm the accuracy of the information in the transcribed note.
[2018-08-08 11:47] LABS: PLATELET COUNT 206 10^3/uL (150-400)
[2018-08-08] MEDS ORDERED: IOPAMIDOL (ISOVUE 370) 100 ML BTL IV ONE (12:27)
[2018-08-08] MEDS ORDERED: diphenhydrAMINE 25 MG CAP PO ONE (13:26)
--- NOTE | 2018-08-08 14:53 | PDGENHP ---
History and Physical History and Physical: CC: Back and abdominal pain HISTORY: This patient comes into the ER today complaining of left-sided back and flank abdominal pain that started 2 days ago. She says that 3 days ago she tripped going up some stairs catching herself with her hands so that she did actually landed on the stairs with her trunk. She did not immediately feeling pain but since 2 days ago she has had severe pain and spasm in the left side of the mid low back. Today the pain comes around the flank toward the low left abdomen. There is no radiation down into the leg. There is no tingling or numbness or weakness. Her pain is markedly exacerbated by any bending or twisting of the trunk. There is no pain in bearing weight with the left leg and she can move her hip. She is emptying her bladder without any change from usual and has had no dysuria or blood in the urine. There is no fever. She has no change in bowel function. In addition today she is getting a flare up of her usual headaches which started in her neck on the right side and gradually worked the way up to the left side of her head and forehead. These involve spasm and she attributes to these chronic neck pain and she has been working with Dr. Salas of Neurosurgery for this pain. Today she says her headache pain is severe. Both of her pains are described as severe and not responding to her usual pain medicines at home including 60 twice daily long-acting morphine and p.r.n. Oxycodone through the day. She has also been taking ibuprofen and Tylenol and using hot and cold packs and getting no benefit from those. 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 I have reviewed the list and ordered appropriate medicines. PHYSICAL EXAMINATION: Vital Signs: All stable without fever Examination: General: alert, oriented, good mentation, looks fairly uncomfortable despite having received significant analgesia medicines here in the ER Skin: warm, dry, good color, no rash HEENT: normal Neck: no mass or jvd Resps: relaxed Lungs: clear breath sounds Heart: regular, no murmur Abdomen: soft, nondistended, nontender, +BS, no mass, no hernia palpable Upper Extremities: normal Lower Extremities: With active or passive range of motion of the left hip there is pain in the mid left back without radiation to the leg, but no pain in the hip per se. There is some tenderness at the lateral left hip that she attributes to some chronic bursitis. No groin tenderness. Otherwise legs are warm with no edema, and she has good color and distal pulses No Bleeding or bruising Neurologic: normal speech/language, normal take off worker, no focal weakness IV site: looks normal LABORATORY DATA: Unremarkable CBC, metabolic panel, and liver panel A UA is remarkable for 1+ blood on dipstick but only 1-3 red cells on urine micro evaluation RADIOLOGY STUDIES: I reviewed images from CT scan of the abdomen pelvis: There is no evidence of hematoma. There are good images of her spine including the thoracic lumbar and sacral spine and pelvis and I see no evidence of any acute fracture or subluxation. There is good imaging of her left hip and proximal femur and I do not see any fractures or other acute changes there. There is no left hydronephrosis or stones that I can see in the left kidney contrasts normally and appears otherwise unremarkable to me. There are no other concerning intra- abdominal abnormalities and no retroperitoneal abnormalities of concern that I can see. She does have a atherosclerosis and her previously placed iliac stents or visible ASSESSMENT: * Acute left mid back and flank pain appears to be muscular in origin and probably related to her fall at home * Severe spasm * Markedly impaired mobility due to her pain and spasm as above * Fall at home with injury as above, mechanical fall having tripped * Acute exacerbation of chronic muscular headache syndrome * Chronic pain syndrome on chronic moderately high dose narcotics at home; this will make managing her current acute pain syndrome more difficult * Chronic cervical spine pain issues, ongoing care with Dr. Salas of Neurosurgery; no apparent acute injury or problems with the cervical spine other than flare-up of her usual headache * Known history of peripheral vascular disease with iliac artery stents PLANS: * Observation status admission for intractable back and abdominal pain * Heat and cold as needed * Increase her dose of Robaxin * Schedule doses of Toradol * Continue her usual home narcotics * Will add [employer] for the time try and wean as soon as possible back to her usual outpatient regimen * Antiemetics as needed * Bed rest * Physical occupational therapy I have reviewed the patient's case in detail with Dr. Gorge Cruz I have reviewed the patient's past medical records as part of this assessment, including previous hospital admission records here
[2018-08-08] MEDS ORDERED: DICLOFENAC SODIUM 1% 100 GM GEL TP PRN (15:23)
[2018-08-08] MEDS ORDERED: NALOXONE HCL 0.4 MG/ML INJ IVP PRN (15:28)
[2018-08-08] MEDS ORDERED: HYDROmorphONE/DILAUDID 6 MG/30 ML PCA IV PRN (15:28)
[2018-08-08 15:57] LABS: INR 0.89 (0.83-1.16); PROTIME(PATIENT) 12.3 SEC (12.0-15.0)
[2018-08-08] MEDS: METHOCARBAMOL 750 MG TAB PO SCH ×2 (16:15→22:37)
[2018-08-08] MEDS: oxyCODONE IR 5 MG TAB PO SCH (16:19)
[2018-08-08] MEDS: PANTOPRAZOLE SODIUM 40 MG TAB PO SCH (17:29)
[2018-08-08] MEDS: morphINE SR 60 MG TAB PO SCH (17:29)
[2018-08-08] MEDS: KETOROLAC 15 MG/1 ML SDV IVP SCH (17:29)
[2018-08-08] MEDS: LORazepam 1 MG TAB PO PRN ×2 (17:55→22:37)
[2018-08-08] MEDS: oxyCODONE IR 5 MG TAB PO PRN (20:53)
[2018-08-08] MEDS: DOXEPIN HCL 3 MG PO SCH (22:13)
[2018-08-09] MEDS: KETOROLAC 15 MG/1 ML SDV IVP SCH ×5 (00:20→23:41)
[2018-08-09] MEDS: oxyCODONE IR 5 MG TAB PO SCH ×4 (06:20→18:01)
[2018-08-09] MEDS: PANTOPRAZOLE SODIUM 40 MG TAB PO SCH ×2 (06:21→18:02)
[2018-08-09] MEDS: LORazepam 1 MG TAB PO PRN ×4 (07:49→23:41)
[2018-08-09] MEDS: morphINE SR 60 MG TAB PO SCH ×2 (08:29→18:02)
[2018-08-09] MEDS: CETIRIZINE 10 MG TAB PO SCH (08:47)
[2018-08-09] MEDS: ENOXAPARIN 40 MG/0.4 ML SYR SC SCH (08:48)
[2018-08-09] MEDS: METHOCARBAMOL 750 MG TAB PO SCH ×3 (08:49→21:02)
--- NOTE | 2018-08-09 11:06 | ASMTCASEMG ---
Living Arrangements What is your living Answers: With Child(riki) arrangement? Who do you live with? Type Of Residence What kind of residence do Answers: Apartment you live in? Discharge Plan Comments Coordination Status Comments Notes: Patient is a 62yo single female who fell at home and is experiencing acute left mid back and flank pain, severe spasm, impaired mobility and an acute exacerbation of chronic muscular headache syndrome. She will be here for observation, pain management, and PT/OT. D/C plan TBD. CM will follow. Date Signed: 08/09/2018 11:06 AM Electronically Signed By:Martha Hernandez LCSW
--- NOTE | 2018-08-09 13:45 | NEUSURGPN ---
Assessment/Plan: Assessment: 62 yr old F admitted to Hospitalist for left lower back pain, left flank pain. Known adjacent segment disease at C4-5 which Please see full dictated consult when available Plan: -MRI lumbar without ordered -Patient has known stenosis at C4-5, previous cervical surgery in 1998 at C5-6. Right sided cervical symptoms had been treated effectively with injections in the past -Will await MRI results, possibly consider injection treatment for cervical and lumbar if indicated Please call neurosurgery with questions/concerns Subjective: left back and flank pain, denies weakness in extremities Objective: AxO x4 PERRLA EOMI CN 2-12 grossly intact 5/5 BUE, BLE Sensation intact to light touch BLE Neuro Check Frequency: per routine Urinary Catheter in Place: No - Physician Discussed Patient with : [facility] Physical Exam - Vitals, I&O, Labs I and O 08/08/18 08/09/18 08/10/18 05:59 05:59 05:59 Intake Total 400 Output Total 500 Balance -100 Weight 75.75 kg Intake: Oral (ml) 400 Output: Urine (ml) 500 Bedside Commode 500 Other: Intake Quantity Yes Sufficient Number of Voids Bedside Commode 2 Vital Signs Temp Pulse Resp BP Pulse Ox 36.8 C 61 14 139/67 H 93 08/09/18 11:24 08/09/18 11:24 08/09/18 11:24 08/09/18 11:24 08/09/18 11:24 ICD10 Worksheet Patient Problems: Problems Problem Status Onset Back pain Acute Neck pain Acute Dizziness Acute Headache Acute
--- NOTE | 2018-08-09 14:27 | PDMN ---
Medical Necessity Medical necessity: Pt meets IP criteria as of 08/09/2018 per and NOLAN M-63 ( Back pain); los > 2 mn for ongoing tx and management of intractable back and abdominal pain that is not responding to OP pain management; requiring PO and IV analgesics and muscle relaxers, neurology consultation and further workup.
--- NOTE | 2018-08-09 14:42 | HOSPPROG ---
Hospitalist Progress Note Assessment/Plan: 62y female with c/o acute on chronic back pain. First encounter, chart reviewed. D/W Neurosurgery. #Acute left mid back and flank pain - appears to be muscular in origin and probably related to her fall at home - consult nsg - possible MRI - Heat and cold as needed - Increased her dose of Robaxin - Schedule doses of Toradol - Continue her usual home narcotics #Severe spasm - Markedly impaired mobility due to her pain and spasm as above - PT/OT #Fall at home - with injury as above - mechanical fall having tripped #Acute exacerbation of chronic muscular headache syndrome -gets injections in the past -NSG seeing #Chronic pain syndrome on chronic moderately high dose narcotics at home - this will make managing her current acute pain syndrome more difficult - cont home meds #Chronic cervical spine pain issues - ongoing care with Dr. Salas of Neurosurgery - no apparent acute injury or problems with the cervical spine other than flare- up of her usual headache #Known history of peripheral vascular disease with iliac artery stents -stable #Dispo -unclear -change to inpt status Subjective: Angry, frustrated. C/O back pain. Objective: Vital Signs Temp Pulse Resp BP Pulse Ox 36.8 C 61 14 139/67 H 93 08/09/18 11:24 08/09/18 11:24 08/09/18 11:24 08/09/18 11:24 08/09/18 11:24 08/08/18 08/09/18 08/10/18 05:59 05:59 05:59 Intake Total 400 Output Total 500 Balance -100 PT 12.3 SEC (12.0-15.0) 08/08/18 15:39 INR 0.89 (0.83-1.16) 08/08/18 15:39 - Physical Exam Constitutional: appears nourished, chronically ill appearing, uncomfortable Eyes: PERRL, anicteric sclera, EOMI Ears, Nose, Mouth, Throat: moist mucous membranes, hearing normal, ears appear normal Cardiovascular: No JVD, No tachycardia, No edema Respiratory: no respiratory distress, no rales or rhonchi, reduced air movement Gastrointestinal: normoactive bowel sounds, No tenderness, No ascites Skin: warm, normal color, No mottled Musculoskeletal: no joint effusions, pain with ROM, generalized weakness Neurologic: AAOx3 Psychiatric: not encephalopathic, thought process linear, anxious, agitated ICD10 Worksheet Patient Problems: Problems Problem Status Onset Headache Acute Dizziness Acute Back pain Acute Neck pain Acute
--- NOTE | 2018-08-09 15:42 | GCON ---
INPATIENT CONSULTATION REFERRING PHYSICIAN: Baljinder Goncalves MD ADDITIONAL DICTATED FOR: Baljinder Goncalves MD CHIEF COMPLAINT: Left lower back pain, left flank pain. HISTORY OF PRESENT ILLNESS: Patient is a 62-year-old female who has been seen by Dr. Goncalves in the past for adjacent segment disease at C4-5. Patient has a history of a C5-6 fusion in 1998 with an outside surgeon and had been getting effective injections at the right C4-5 at [facility]. Patient presented to the emergency room yesterday with terrible left lower back spasms that wrap around into her flank region. Patient denies any radicular symptoms at this time. She denies any lower extremity weakness, denies any incontinence of her bowel or bladder. Patient denies any trauma. She does note that she tripped going up some stairs a few days ago, but did not actually fall. Patient takes pain medications chronically, including long-acting morphine and oxycodone. REVIEW OF SYSTEMS: A 10-point review of systems was performed and negative aside from what is mentioned in the HPI. PAST MEDICAL HISTORY: 1. Chronic pain syndrome. 2. Degenerative disk disease, cervical spine. 3. Peripheral vascular disease. 4. Coronary artery disease. 5. Aortic insufficiency. PAST SURGICAL HISTORY: Patient had a C5-6 anterior cervical diskectomy and fusion in 1998 and a posterior C5-6 fusion in 2000 with wires. Patient also has history of lumbar surgery. ALLERGIES: Patient is allergic to penicillin, meperidine HCL, prednisone and other steroids except Kenalog. FAMILY HISTORY: Reviewed and noncontributory to present situation. SOCIAL HISTORY: Patient was previously a nurse, but is now retired. Patient is a nonsmoker. She denies any alcohol use. MEDICATIONS: Include albuterol 1-2 puffs q.4 hours p.r.n., Voltaren gel 4 g TP q.i.d. p.r.n., Advair 250/50 one puff b.i.d. p.r.n., Protonix 40 mg p.o. b.i.d. , MS Contin 60 mg b.i.d., oxycodone 10 mg q.h.s. p.r.n., oxycodone 10 mg p.o. q.i.d., aspirin 81 mg daily, methocarbamol 750 mg p.o. t.i.d. LABORATORY RESULTS: White blood cell count 6.69, hemoglobin 14.9, hematocrit 43.6, platelet count 206. PT is 12.3, INR 0.89, APTT 24.8. Sodium 137, potassium 4.1, BUN is 15, creatinine 0.7, glucose is 93. DIAGNOSTIC IMAGING: CT of the abdomen, performed with contrast on 08/08/2018, demonstrates no intra-abdominal inflammatory process; constipation; no obstruction or appendicitis. Of note, severe degenerative disk disease is seen at L1-2 and L5-S1. PHYSICAL EXAMINATION: VITAL SIGNS: Blood pressure is 139/67, heart rate 61, respiratory rate 14, oxygen saturations 93% on room air, temperature is 36.8 degrees Celsius. HEENT: Head is normocephalic, atraumatic. Pupils are equal, round, and reactive to light. EOM is intact. Full visual herbert by confrontation. GENITOURINARY AND RECTAL: Deferred. RESPIRATORY, CARDIAC, ABDOMINAL: Deferred. NEUROLOGIC: The patient is awake and alert, oriented to name, place, location, date, time, and situation. Her memory is intact to immediate past and current events. Speech: No aphasia or dysphonia. Cranial nerves 2-12 are grossly intact. Motor: Patient has 5/5 strength in all muscle groups in bilateral upper and lower extremities to include deltoids, biceps, triceps, brachioradialis, wrist flexion, extensors, house worker general, intrinsic fingers, iliopsoas, quadriceps, hamstring, plantar flexion, dorsiflexion, EHL testing. Sensation is grossly intact to light touch throughout all dermatomal distributions of bilateral lower extremities. Patient has a positive straight leg raise on the left. Negative DANNI, although exam is somewhat limited to pain in the left lower extremity. Reflexes: Biceps, triceps, brachioradialis, knee jerk and ankle jerk are 2+ out of 4. Chen was negative. Babinski was negative. ASSESSMENT AND PLAN: Patient is a 62-year-old female with a history of chronic pain and known adjacent segment disease at C4-5. Patient presented with terrible left lower back pain, which she described as spasms, that radiate into the flank region. CT of the abdomen did not show any evidence of a kidney stone , although there was some severe degenerative disk disease seen in the periphery at L1-2 and L5-S1. We will get an MRI of the lumbar spine without contrast for further evaluation; we will also order an MRI of the left hip. The patients exam was somewhat limited due to pain. Patient may consider another injection at the right C4-5 level, which was previously performed with [facility]. Patient was seen and examined by Neurosurgical Services at the bedside at 1340 on August 09, 2018. Please contact Neurosurgery with any questions or concerns. /[id number]/MODL MTDD
[2018-08-09] MEDS: DOXEPIN HCL 3 MG PO SCH (20:54)
[2018-08-09] MEDS: ACETAMINOPHEN 500 MG TAB PO SCH (21:01)
[2018-08-09] MEDS: TEMAZEPAM 15 MG CAP PO PRN (21:02)
[2018-08-09] MEDS: oxyCODONE IR 5 MG TAB PO PRN (21:02)
[2018-08-10] MEDS: ACETAMINOPHEN 500 MG TAB PO SCH ×3 (04:54→21:26)
[2018-08-10] MEDS: morphINE SR 60 MG TAB PO SCH ×2 (04:55→17:39)
[2018-08-10] MEDS: oxyCODONE IR 5 MG TAB PO SCH ×4 (04:55→17:38)
[2018-08-10] MEDS: KETOROLAC 15 MG/1 ML SDV IVP SCH ×4 (04:56→23:56)
[2018-08-10] MEDS: PANTOPRAZOLE SODIUM 40 MG TAB PO SCH ×2 (04:57→17:39)
[2018-08-10] MEDS: ENOXAPARIN 40 MG/0.4 ML SYR SC SCH (09:22)
[2018-08-10] MEDS: LORazepam 1 MG TAB PO PRN ×3 (09:24→19:12)
[2018-08-10] MEDS: CETIRIZINE 10 MG TAB PO SCH (09:25)
[2018-08-10] MEDS: ASPIRIN 81 MG CHEWABLE TAB PO SCH (09:26)
[2018-08-10] MEDS: METHOCARBAMOL 750 MG TAB PO SCH ×3 (09:26→21:26)
--- NOTE | 2018-08-10 10:24 | NEUSURGPN ---
Assessment/Plan: 62F chronic pain, with likely left paraspinal muscle strain. She has stable to mildly progressed spondylosis of the lumbar spine on repeat MRI with foraminal stenosis most significant at L45/L5S1, largely stable on MR compared to 2009. She also has some edema in the left paraspinals noted on STIR noted by radiologist, could be indicative of a muscle strain. SIJ provocative tests are negative, Hip MRI also w/o acute findings. She is also with neck pain and right sided symptoms thought to be related to some ASD in her cervical spine -No need for acute NS intervention. -recommend NSAIds, muscle relaxers, PT, and time. gabriel Lau -could consider L5S1 ROBERT or caudal, but not certain there would much benefit. -could repeat R C45 ROBERT for neck/arm pain if remains severe, otherwise, we will follow this outpatient. Gabriel Goncalves Subjective: no weakness. continues with left flank pain that is hard to describe but radiates into the groin, and posterior and lateral leg above the knee, and hurts when she tries to sit upright or lift her legs. Secondarily, she also complains of neck pain, right face pain and pain going down her shoulder and the back of her arm. Objective: NAD AAOx4 EOMI, PEARLA Speech clear MAEX4, 5/5, some pain limited in LLE>RLE SILT - Physician Discussed Patient with : Iv[facility] Neuro[facility] Physical Exam - Vitals, I&O, Labs I and O 08/09/18 08/10/18 08/11/18 05:59 05:59 05:59 Intake Total 1150 Output Total 1999 Balance -850 Intake: Oral (ml) 1150 Output: Urine (ml) 1999 Bedside Commode 1999 Other: Intake Quantity Yes Sufficient Number of Voids Bedside Commode 4 Vital Signs Temp Pulse Resp BP Pulse Ox 36.5 C 71 18 126/73 H 94 08/10/18 07:46 08/10/18 07:46 08/10/18 07:46 08/10/18 07:46 08/10/18 07:46 ICD10 Worksheet Patient Problems: Problems Problem Status Onset Back pain Acute Neck pain Acute Dizziness Acute Headache Acute
[2018-08-10] MEDS: LIDOCAINE 4%/MENTHOL 1% PATCH TD SCH (12:25)
[2018-08-10] MEDS: HYDROmorphONE/DILAUDID 2 MG TAB PO PRN ×3 (12:27→21:35)
--- NOTE | 2018-08-10 12:41 | HOSPPROG ---
Hospitalist Progress Note Assessment/Plan: 62y female with c/o acute on chronic back pain now with likely left paraspinal muscle strain. D/W Neurosurgery. #Acute left mid back and flank pain -mildly progressed spondylosis of the lumbar spine on MRI -foraminal stenosis most significant at L45/L5S1 -No need for acute NS intervention. -recommend NSAIds, muscle relaxers, PT, and time -repeat R C45 ROBERT for neck/arm pain outpatient. - appears to be muscular in origin and probably related to her fall at home - Heat and cold as needed - Increased her dose of Robaxin - Schedule doses of Toradol - Continue her usual home narcotics -add lido pathc and po dilaudid #Severe spasm - better - PT/OT #Fall at home - with injury as above - mechanical fall having tripped #Acute exacerbation of chronic muscular headache syndrome -gets injections in the past -better #Chronic pain syndrome on chronic moderately high dose narcotics at home - this will make managing her current acute pain syndrome more difficult - cont home meds #Chronic cervical spine pain issues - ongoing care with Dr. Salas of Neurosurgery - no apparent acute injury or problems with the cervical spine other than flare- up of her usual headache #Known history of peripheral vascular disease with iliac artery stents -stable #Dispo -unclear -change to inpt status -needs SNF rehab Subjective: Still having pain. Not feeling better. Objective: Vital Signs Temp Pulse Resp BP Pulse Ox 36.5 C 71 18 126/73 H 94 08/10/18 07:46 08/10/18 07:46 08/10/18 07:46 08/10/18 07:46 08/10/18 07:46 08/09/18 08/10/18 08/11/18 05:59 05:59 05:59 Intake Total 1150 Output Total 1999 Balance -850 PT 12.3 SEC (12.0-15.0) 08/08/18 15:39 INR 0.89 (0.83-1.16) 08/08/18 15:39 - Physical Exam Constitutional: appears nourished, chronically ill appearing, uncomfortable Eyes: PERRL, anicteric sclera, EOMI Ears, Nose, Mouth, Throat: moist mucous membranes, hearing normal, ears appear normal Cardiovascular: regular rate and rhythym, No JVD, No edema Respiratory: no respiratory distress, no rales or rhonchi, reduced air movement Gastrointestinal: normoactive bowel sounds, No tenderness, No ascites Skin: warm, normal color, No mottled Musculoskeletal: no joint effusions, pain with ROM, generalized weakness Neurologic: AAOx3 Psychiatric: interacting appropriately, not anxious, not encephalopathic ICD10 Worksheet Patient Problems: Problems Problem Status Onset Back pain Acute Neck pain Acute Dizziness Acute Headache Acute
--- NOTE | 2018-08-10 13:08 | ASMTCMCOM ---
CM Note CM Note Notes: OT rec SNF, PT rec home. Spoke with pt about SNF, reports she will need to go to SNF because due to the pain she "has no choice." Pt provided SNF list and referrals sent in [employer]. Pt may choose [facility]. CM to follow. Date Signed: 08/10/2018 01:07 PM Electronically Signed By:MIKE Pope
[2018-08-10] MEDS ORDERED: POLYETHYLENE GLYCOL 3350 17 GM PKT PO PRN (18:44)
[2018-08-10] MEDS ORDERED: LACTULOSE 20 GM/30 ML UDCUP PO PRN (18:44)
[2018-08-10] MEDS ORDERED: BISACODYL 10 MG SUPP PR PRN (18:44)
[2018-08-10] MEDS: TEMAZEPAM 15 MG CAP PO PRN (21:26)
[2018-08-10] MEDS: SENNOSIDES/DOCUSATE SODIUM TAB PO SCH (21:26)
[2018-08-10] MEDS: oxyCODONE IR 5 MG TAB PO PRN (21:35)
[2018-08-10] MEDS: DOXEPIN HCL 3 MG PO SCH (21:35)
[2018-08-10] MEDS: PATCH REMOVAL 1 EA PATCH TD SCH (21:36)
[2018-08-11] MEDS: HYDROmorphONE/DILAUDID 2 MG TAB PO PRN ×5 (02:07→22:00)
[2018-08-11] MEDS: LORazepam 1 MG TAB PO PRN ×4 (02:33→20:19)
[2018-08-11] MEDS: KETOROLAC 15 MG/1 ML SDV IVP SCH ×4 (05:15→23:16)
[2018-08-11] MEDS: morphINE SR 60 MG TAB PO SCH ×2 (05:16→18:02)
[2018-08-11] MEDS: oxyCODONE IR 5 MG TAB PO SCH ×4 (05:16→18:02)
[2018-08-11] MEDS: ACETAMINOPHEN 500 MG TAB PO SCH ×3 (05:16→21:59)
[2018-08-11] MEDS: ENOXAPARIN 40 MG/0.4 ML SYR SC SCH (08:55)
[2018-08-11] MEDS: METHOCARBAMOL 750 MG TAB PO SCH ×3 (08:56→21:59)
[2018-08-11] MEDS: CETIRIZINE 10 MG TAB PO SCH (08:56)
[2018-08-11] MEDS: PANTOPRAZOLE SODIUM 40 MG TAB PO SCH ×2 (08:56→18:02)
[2018-08-11] MEDS: LIDOCAINE 4%/MENTHOL 1% PATCH TD SCH (09:03)
[2018-08-11] MEDS ORDERED: GABAPENTIN 300 MG CAP PO ONE (09:53)
[2018-08-11] MEDS ORDERED: GABAPENTIN 300 MG CAP PO PRN (09:53)
[2018-08-11] MEDS: SENNOSIDES/DOCUSATE SODIUM TAB PO SCH ×2 (10:35→20:19)
--- NOTE | 2018-08-11 12:57 | SOAPPROG ---
SOBRI[facility] Progress Note Assessment/Plan: Assessment/Plan: 62F chronic pain. Complaining of mainly left buttock and groin pain today. She has stable to mildly progressed spondylosis of the lumbar spine on repeat MRI with foraminal stenosis most significant at L45/L5S1, largely stable on MR compared to 2009. She also has some edema in the left paraspinals noted on STIR noted by radiologist, could be indicative of a muscle strain. SIJ provocative tests are negative, Hip MRI also w/o acute findings. She is also with neck pain and right sided symptoms thought to be related to some ASD in her cervical spine -Today Dr. Goncalves reviewed her Lumbar MRI and she has left sided foraminal disc herniation that may be causing her current pain. -We will order left L5/S1 TFESI -Continue Neurontin -could repeat R C45 ROBERT for neck/arm pain if remains severe, otherwise, we will follow this outpatient. Dw Dr. Goncalves Subjective: Sitting up in bed complaining of left buttock pain that radiates to the left groin with any movement, particularly rotation. States her left hip and lateral leg feels "numb." Objective: Vital Signs Temp Pulse Resp BP Pulse Ox 36.4 C 70 17 123/58 H 93 08/11/18 08:00 08/11/18 08:00 08/11/18 08:00 08/11/18 08:00 08/11/18 08:00 08/10/18 08/11/18 08/12/18 05:59 05:59 05:59 Intake Total 1150 800 900 Output Total 2000 4200 Balance -850 -3400 900 PT 12.3 SEC (12.0-15.0) 08/08/18 15:39 INR 0.89 (0.83-1.16) 08/08/18 15:39 Neuro: +Left Straight leg raise 5-/5 left DF/PF limited by pain sens +LT ICD10 Worksheet Patient Problems: Problems Problem Status Onset Back pain Acute Neck pain Acute Dizziness Acute Headache Acute
--- NOTE | 2018-08-11 13:18 | HOSPPROG ---
Hospitalist Progress Note Assessment/Plan: 62y female with c/o acute on chronic back pain now with likely left paraspinal muscle strain. D/W Neurosurgery. #Acute left mid back and flank pain -mildly progressed spondylosis of the lumbar spine on MRI -foraminal stenosis most significant at L45/L5S1 -NSAIds, muscle relaxers, PT not helping -repeat R C45 ROBERT for neck/arm pain outpatient. -appears to be muscular in origin and probably related to her fall at home -Left L5 TFESI per neurosurgery - Heat and cold as needed - Robaxin - Schedule doses of Toradol - Continue her usual home narcotics - lido patch and po dilaudid #Severe spasm - conts - PT/OT #Fall at home - with injury as above - mechanical fall having tripped #Acute exacerbation of chronic muscular headache syndrome -gets injections in the past -better #Chronic pain syndrome on chronic moderately high dose narcotics at home - this will make managing her current acute pain syndrome more difficult - cont home meds #Chronic cervical spine pain issues - ongoing care with Dr. Salas of Neurosurgery - no apparent acute injury or problems with the cervical spine other than flare- up of her usual headache #Known history of peripheral vascular disease with iliac artery stents -stable #Dispo -unclear -change to inpt status -needs SNF rehab -possible injection Subjective: Still having severe pain. Unable to move with out significant increase. Objective: Vital Signs Temp Pulse Resp BP Pulse Ox 36.4 C 70 17 123/58 H 93 08/11/18 08:00 08/11/18 08:00 08/11/18 08:00 08/11/18 08:00 08/11/18 08:00 08/10/18 08/11/18 08/12/18 05:59 05:59 05:59 Intake Total 1150 800 900 Output Total 1999 4200 Balance -850 -3400 900 PT 12.3 SEC (12.0-15.0) 08/08/18 15:39 INR 0.89 (0.83-1.16) 08/08/18 15:39 - Physical Exam Constitutional: appears nourished, chronically ill appearing, uncomfortable Eyes: PERRL, anicteric sclera, EOMI Ears, Nose, Mouth, Throat: moist mucous membranes, hearing normal, ears appear normal Cardiovascular: regular rate and rhythym, No JVD, No edema Respiratory: no respiratory distress, no rales or rhonchi, reduced air movement Gastrointestinal: normoactive bowel sounds, tenderness, No ascites Skin: warm, normal color, No mottled Musculoskeletal: joint tenderness, pain with ROM, generalized weakness Neurologic: AAOx3 Psychiatric: not anxious, not encephalopathic, thought process linear ICD10 Worksheet Patient Problems: Problems Problem Status Onset Headache Acute Dizziness Acute Back pain Acute Neck pain Acute
[2018-08-11] MEDS ORDERED: GADOBUTROL 10 ML VIAL IVP ONE (13:31)
[2018-08-11] MEDS ORDERED: TRIAMCINOLONE ACETONIDE 200 MG/5 ML MDV IM ONE (14:58)
[2018-08-11] MEDS ORDERED: IOPAMIDOL (ISOVUE-M 300) 15 ML VIAL ONE (14:58)
[2018-08-11] MEDS: DOXEPIN HCL 3 MG PO SCH (20:16)
[2018-08-11] MEDS: PATCH REMOVAL 1 EA PATCH TD SCH (20:18)
[2018-08-11] MEDS: TEMAZEPAM 15 MG CAP PO PRN (20:19)
[2018-08-11] MEDS: oxyCODONE IR 5 MG TAB PO PRN (22:02)
[2018-08-12] MEDS: HYDROmorphONE/DILAUDID 2 MG TAB PO PRN ×3 (02:14→10:59)
[2018-08-12] MEDS: LORazepam 1 MG TAB PO PRN ×5 (02:14→20:37)
[2018-08-12] MEDS: KETOROLAC 15 MG/1 ML SDV IVP SCH ×4 (05:08→23:00)
[2018-08-12] MEDS: morphINE SR 60 MG TAB PO SCH ×2 (05:10→18:08)
[2018-08-12] MEDS: oxyCODONE IR 5 MG TAB PO SCH ×4 (05:11→18:08)
[2018-08-12] MEDS: ACETAMINOPHEN 500 MG TAB PO SCH ×3 (05:11→23:00)
[2018-08-12] MEDS: PANTOPRAZOLE SODIUM 40 MG TAB PO SCH ×2 (05:15→18:08)
[2018-08-12] MEDS: ENOXAPARIN 40 MG/0.4 ML SYR SC SCH (07:51)
--- NOTE | 2018-08-12 08:00 | NEUSURGPN ---
Assessment/Plan: 62F chronic pain. Complaining of mainly left buttock and groin pain today. She has stable to mildly progressed spondylosis of the lumbar spine on repeat MRI with foraminal stenosis most significant at L45/L5S1, largely stable on MR compared to 2008. She also has some edema in the left paraspinals noted on STIR noted by radiologist, could be indicative of a muscle strain. SIJ provocative tests are negative, Hip MRI also w/o acute findings. She is also with neck pain and right sided symptoms thought to be related to some ASD in her cervical spine Plan: -Dr. Goncalves reviewed her Lumbar MRI and she has left sided foraminal disc herniation that may be causing her current pain -Patient is s/p left L5/S1 TFESI on 08/11, patient reports some improvement in her left hip/groin pain following injection. We will continue to monitor pain level post injection. -Continue Neurontin -could repeat right C4-5 ROBERT for neck/arm pain if remains severe, otherwise, we will follow this outpatient. Patient plans to schedule cervical surgery as outpatient. -Discussed patient with Dr Goncalves Please call neurosurgery with questions/concerns Subjective: some improvement with left hip/groin pain post injection, hopeful it will continue to get better Objective: AxO x4 BILLINGSLEY x4 5/5 BUE, BLE Sensation intact to light touch to BLE negative Dai bilaterally Neuro Check Frequency: per routine Urinary Catheter in Place: No - Physician Discussed Patient with Dr.: Goncalves Neurosurgery Physical Exam - Vitals, I&O, Labs I and O 08/11/18 08/12/18 08/13/18 05:59 05:59 05:59 Intake Total 800 3400 Output Total 4200 6200 Balance -3400 -2800 Intake: Oral (ml) 800 3400 Output: Urine (ml) 4200 6200 Bedside Commode 4200 6200 Other: Intake Quantity Yes Sufficient Number of Voids Bedside Commode 2 5 Number of Stools Bedside Commode 1 Vital Signs Temp Pulse Resp BP Pulse Ox 36.9 C 66 16 136/81 H 94 08/12/18 00:00 08/12/18 00:00 08/12/18 00:00 08/12/18 00:00 08/12/18 00:00 ICD10 Worksheet Patient Problems: Problems Problem Status Onset Back pain Acute Neck pain Acute Dizziness Acute Headache Acute
[2018-08-12] MEDS: METHOCARBAMOL 750 MG TAB PO SCH ×3 (09:40→23:00)
[2018-08-12] MEDS: SENNOSIDES/DOCUSATE SODIUM TAB PO SCH ×2 (09:41→20:15)
[2018-08-12] MEDS: LIDOCAINE 4%/MENTHOL 1% PATCH TD SCH (09:41)
[2018-08-12] MEDS: ASPIRIN 81 MG CHEWABLE TAB PO SCH (09:41)
[2018-08-12] MEDS: CETIRIZINE 10 MG TAB PO SCH (09:41)
--- NOTE | 2018-08-12 11:13 | HOSPPROG ---
Hospitalist Progress Note Assessment/Plan: Samara Acevedo is a 62 y/o female w chronic pain and now w acute pain. C/o left buttock and groin pain today. She has stable to mildly progressed spondylosis of the lumbar spine on repeat MRI with foraminal stenosis most significant at L45/L5S1, largely stable on MR compared to 2008. She also has some edema in the left paraspinals noted on STIR noted by radiologist, could be indicative of a muscle strain. SIJ provocative tests are negative, Hip MRI also w/o acute findings. First encounter, chart reviewed. #Acute left mid back and flank pain -Patient is s/p left L5/S1 TFESI on 08/11, patient reports some improvement in her left hip/groin pain following injection. -repeat R C45 ROBERT for neck/arm pain outpatient. - Robaxin - Schedule doses of Toradol -nerve pain is her main complaint- oral Dilaudid is not helping, she is allergic to lyrica, cymbalta; spoke w pharmacy and they will see her today #Severe spasm - PT/OT #Fall at home - with injury as above - mechanical fall having tripped #Acute exacerbation of chronic muscular headache syndrome -no c/o of this today #chronic pain on continuous, chronic opioids -she has a pro doctor she sees in the OP setting -encouraged her to try other modalities for pain such as water therapy, Rolfing #Chronic cervical spine pain issues - ongoing care with Dr. Salas of Neurosurgery - no apparent acute injury or problems with the cervical spine other than flare- up of her usual headache - she plans on having cervical spine surgery #Known history of peripheral vascular disease with iliac artery stents -stable #plan: PT and OT working w her, pharmacy to see her about, she will go to [facility] rehab for strengthening. Subjective: Betsy said her pain is wrapping around left hip going down her leg on the back sied. Objective: Vital Signs Temp Pulse Resp BP Pulse Ox 36.7 C 74 16 124/74 H 94 08/12/18 08:00 08/12/18 08:00 08/12/18 08:00 08/12/18 08:00 08/12/18 08:00 08/11/18 08/12/18 08/13/18 05:59 05:59 05:59 Intake Total 800 3400 Output Total 4200 6200 300 Balance -3400 -2800 -300 PT 12.3 SEC (12.0-15.0) 08/08/18 15:39 INR 0.89 (0.83-1.16) 08/08/18 15:39 - Physical Exam Constitutional: uncomfortable Eyes: PERRL Ears, Nose, Mouth, Throat: hearing normal Cardiovascular: regular rate and rhythym Respiratory: no respiratory distress Skin: warm Neurologic: AAOx3 Psychiatric: interacting appropriately ICD10 Worksheet Patient Problems: Problems Problem Status Onset Back pain Acute Neck pain Acute Dizziness Acute Headache Acute
[2018-08-12] MEDS ORDERED: LIDOCAINE 1% 300 MG/30 ML SDV ONE (12:38)
[2018-08-12] MEDS ORDERED: IOPAMIDOL (ISOVUE-M 300) 15 ML VIAL ONE (12:39)
[2018-08-12] MEDS ORDERED: TRIAMCINOLONE ACETONIDE 200 MG/5 ML MDV IM ONE (12:39)
[2018-08-12] MEDS ORDERED: PHARMACY PAIN CONSULT 1 EA MISC SCH (14:15)
[2018-08-12] MEDS: oxyCODONE IR 5 MG TAB PO PRN ×3 (16:07→23:04)
[2018-08-12] MEDS: DOXEPIN HCL 3 MG PO SCH (20:09)
[2018-08-12] MEDS: PATCH REMOVAL 1 EA PATCH TD SCH (20:09)
[2018-08-12] MEDS: TEMAZEPAM 15 MG CAP PO PRN (20:16)
[2018-08-13] MEDS: LORazepam 1 MG TAB PO PRN ×6 (00:52→22:26)
[2018-08-13] MEDS: oxyCODONE IR 5 MG TAB PO PRN ×7 (02:05→20:46)
[2018-08-13] MEDS: KETOROLAC 15 MG/1 ML SDV IVP SCH ×2 (05:17→14:23)
[2018-08-13] MEDS: ACETAMINOPHEN 500 MG TAB PO SCH ×3 (05:18→22:26)
[2018-08-13] MEDS: oxyCODONE IR 5 MG TAB PO SCH ×4 (05:19→18:26)
[2018-08-13] MEDS: morphINE SR 60 MG TAB PO SCH ×2 (05:21→17:36)
[2018-08-13] MEDS: PANTOPRAZOLE SODIUM 40 MG TAB PO SCH ×2 (05:21→17:36)
--- NOTE | 2018-08-13 08:13 | NEUSURGPN ---
Assessment/Plan: 62F chronic pain. Complaining of mainly left groin, anterior hip pain today She has stable to mildly progressed spondylosis of the lumbar spine on repeat MRI with foraminal stenosis most significant at L45/L5S1, largely stable on MR compared to 2009. She also has some edema in the left paraspinals noted on STIR noted by radiologist, could be indicative of a muscle strain. SIJ provocative tests are negative, Hip MRI also w/o acute findings. Plan: -Caudal injection scheduled for today, patient is NPO -Continue Neurontin -could repeat right C4-5 ROBERT for neck/arm pain if remains severe, otherwise, we will follow this outpatient. Patient plans to schedule cervical surgery as outpatient. -Discussed patient with Dr Goncalves Please call neurosurgery with questions/concerns Subjective: left anterior hip pain worse with movement/flexion of left hip Objective: AxO x4 BILLINGSLEY x4 5/5 BUE, BLE, except pain limited motion with left HF 4+/5 Sensation intact to light touch to BLE - Physician Discussed Patient with Dr.: Goncalves Neurosurgery Physical Exam - Vitals, I&O, Labs I and O 08/12/18 08/13/18 08/14/18 05:59 05:59 05:59 Intake Total 3400 Output Total 6200 300 Balance -2800 -300 Intake: Oral (ml) 3400 Output: Urine (ml) 6200 300 Bedside Commode 6200 300 Other: Intake Quantity Yes Sufficient Number of Voids Bedside Commode 5 1 Toilet 3 Number of Stools Bedside Commode 1 Vital Signs Temp Pulse Resp BP Pulse Ox 37.0 C 63 16 114/54 L 93 08/12/18 23:32 08/12/18 23:32 08/12/18 23:32 08/12/18 23:32 08/12/18 23:32 ICD10 Worksheet Patient Problems: Problems Problem Status Onset Back pain Acute Neck pain Acute Dizziness Acute Headache Acute
[2018-08-13] MEDS: SENNOSIDES/DOCUSATE SODIUM TAB PO SCH ×2 (08:28→20:04)
[2018-08-13] MEDS: ENOXAPARIN 40 MG/0.4 ML SYR SC SCH (08:29)
[2018-08-13] MEDS: CETIRIZINE 10 MG TAB PO SCH (08:29)
--- NOTE | 2018-08-13 09:13 | HOSPPROG ---
Hospitalist Progress Note Assessment/Plan: Samara Acevedo is a 62 y/o female w chronic pain and now w acute pain. C/o left buttock and groin pain. She has stable to mildly progressed spondylosis of the lumbar spine on repeat MRI with foraminal stenosis most significant at L45/L5S1 , largely stable on MR compared to 2008. She also has some edema in the left paraspinals noted on STIR noted by radiologist, could be indicative of a muscle strain. SIJ provocative tests are negative, Hip MRI also w/o acute findings. #Acute left mid back and flank -s/p ROBERT without much improvement -to get a caudal injection today -repeat R C45 ROBERT for neck/arm pain outpatient. - Robaxin, Ibuprofen #Fall at home - with injury as above - mechanical fall having tripped #Acute exacerbation of chronic muscular headache syndrome -no c/o of this today #chronic pain on continuous, chronic opioids -she has a pian doctor she sees in the OP setting -encouraged her to try other modalities for pain such as water therapy, Rolfing -appreciated pharmacy getting involved with treating her pain #Chronic cervical spine pain issues - ongoing care with Dr. Salas of Neurosurgery - no apparent acute injury or problems with the cervical spine other than flare- up of her usual headache - she plans on having cervical spine surgery #Known history of peripheral vascular disease with iliac artery stents -stable #plan: will plan to dc to [facility] rehab in the morning, she would like to go home, but lives alone. She would benefit from rehab. She fell at home and has stairs. Subjective: Betsy is hoping the caudal injection helps. Objective: Vital Signs Temp Pulse Resp BP Pulse Ox 36.7 C 63 16 146/79 H 96 08/13/18 08:00 08/13/18 08:00 08/13/18 08:00 08/13/18 08:00 08/13/18 08:00 08/12/18 08/13/18 08/14/18 05:59 05:59 05:59 Intake Total 3400 Output Total 6200 300 Balance -2800 -300 PT 12.3 SEC (12.0-15.0) 08/08/18 15:39 INR 0.89 (0.83-1.16) 08/08/18 15:39 - Physical Exam Constitutional: appears nourished, uncomfortable Eyes: PERRL Ears, Nose, Mouth, Throat: hearing normal Respiratory: no respiratory distress Gastrointestinal: normoactive bowel sounds Skin: warm Musculoskeletal: generalized weakness Neurologic: AAOx3 Psychiatric: interacting appropriately ICD10 Worksheet Patient Problems: Problems Problem Status Onset Back pain Acute Neck pain Acute Dizziness Acute Headache Acute
[2018-08-13] MEDS ORDERED: TRIAMCINOLONE ACETONIDE 200 MG/5 ML MDV IM ONE (10:32)
[2018-08-13] MEDS ORDERED: IOPAMIDOL (ISOVUE-M 300) 15 ML VIAL ONE (10:32)
[2018-08-13] MEDS: METHOCARBAMOL 750 MG TAB PO SCH ×3 (10:40→22:26)
[2018-08-13] MEDS: LIDOCAINE 4%/MENTHOL 1% PATCH TD SCH (10:40)
--- NOTE | 2018-08-13 14:17 | ASMTCMCOM ---
CM Note CM Note Notes: Pt chooses [facility] for d/c, likely tomorrow. Angeline at [facility] updated. CM to follow. Date Signed: 08/13/2018 02:17 PM Electronically Signed By:MIKE Pope
[2018-08-13] MEDS: IBUPROFEN 200 MG TAB PO PRN ×2 (14:25→22:26)
[2018-08-13] MEDS: MAGNESIUM HYDROXIDE 30 ML UDCUP PO PRN (14:32)
[2018-08-13] MEDS: DOXEPIN HCL 3 MG PO SCH (20:04)
[2018-08-13] MEDS: PATCH REMOVAL 1 EA PATCH TD SCH (20:04)
[2018-08-13] MEDS: TEMAZEPAM 15 MG CAP PO PRN (20:45)
[2018-08-14] MEDS: oxyCODONE IR 5 MG TAB PO PRN ×8 (01:32→21:25)
[2018-08-14] MEDS: LORazepam 1 MG TAB PO PRN ×5 (03:04→21:24)
[2018-08-14] MEDS: ACETAMINOPHEN 500 MG TAB PO SCH ×3 (05:01→21:24)
[2018-08-14] MEDS: PANTOPRAZOLE SODIUM 40 MG TAB PO SCH ×2 (05:01→17:40)
[2018-08-14] MEDS: morphINE SR 60 MG TAB PO SCH ×2 (05:01→17:40)
[2018-08-14] MEDS: oxyCODONE IR 5 MG TAB PO SCH ×4 (05:01→17:40)
--- NOTE | 2018-08-14 07:14 | NEUSURGPN ---
Assessment/Plan: Assessment: 62 yo female with a hx of chronic pain. Pt presented with mainly complaining of left groin, anterior hip pain. She continues to complain of left inguinal pain that hurts with rotation of the left hip Plan: -pt has a stable to mildly progressed spondylosis of the lumbar spine on repeat MRI with foraminal stenosis most significant at L45/L5S1, largely stable on MR compared to 2009. She also has some edema in the left paraspinals noted on STIR noted by radiologist, could be indicative of a muscle strain. SI joint provocative tests were negative. Prior reports that the left hip MRI also w/o acute findings to the L spine c/w a strain -caudal injection done yesterday and she states that the back pain is better but the left inguinal pain continues -pt is frustrated with the left hip pain that seems to be the main problem now -will order upright weight bearing hip films -consider ortho evaluation as well -continue Neurontin -could repeat right C4-5 ROBERT for neck/arm pain if remains severe, otherwise, we will follow this outpatient. Patient plans to schedule cervical surgery as outpatient -discussed patient with Dr Goncalves -please call neurosurgery with questions/concerns Subjective: Awake and alert. NAD. Eating/drinking and voiding. No f/c/n/v/d. No chung/neck/ chest/abd or gu complaints. Objective: AAO x 3, PERRLA/EOMI no droop CN 2-12 grossly intact +lt touch 5/5 BUE/BLE = pt with pain with internal/external rotation of left hip when c/w right Neuro Check Frequency: per routine Urinary Catheter in Place: No - Physician Discussed Patient with Dr.: Goncalves Neurosurgery Physical Exam - Vitals, I&O, Labs I and O 08/13/18 08/14/18 08/15/18 05:59 05:59 05:59 Intake Total 1500 Output Total 300 Balance -300 1500 Intake: Oral (ml) 1500 Output: Urine (ml) 300 Bedside Commode 300 Other: Intake Quantity Yes Sufficient Number of Voids Bedside Commode 1 Toilet 3 3 Vital Signs Temp Pulse Resp BP Pulse Ox 36.7 C 62 16 130/53 H 95 08/13/18 22:27 08/13/18 22:27 08/13/18 22:27 08/13/18 22:27 08/13/18 22:27 ICD10 Worksheet Patient Problems: Problems Problem Status Onset Back pain Acute Neck pain Acute Dizziness Acute Headache Acute
[2018-08-14] MEDS: ENOXAPARIN 40 MG/0.4 ML SYR SC SCH (09:12)
[2018-08-14] MEDS: METHOCARBAMOL 750 MG TAB PO SCH ×3 (09:13→21:24)
[2018-08-14] MEDS: SENNOSIDES/DOCUSATE SODIUM TAB PO SCH ×2 (09:13→21:24)
[2018-08-14] MEDS: ASPIRIN 81 MG CHEWABLE TAB PO SCH (09:13)
[2018-08-14] MEDS: CETIRIZINE 10 MG TAB PO SCH (09:13)
[2018-08-14] MEDS: IBUPROFEN 200 MG TAB PO PRN ×2 (09:20→15:30)
[2018-08-14] MEDS: LIDOCAINE 4%/MENTHOL 1% PATCH TD SCH (09:21)
--- NOTE | 2018-08-14 09:32 | HOSPPROG ---
Hospitalist Progress Note Assessment/Plan: Betsy Acevedo is a 62 y/o female w chronic pain and now w acute pain. C/o left buttock and groin pain. She has stable to mildly progressed spondylosis of the lumbar spine on repeat MRI with foraminal stenosis most significant at L45/L5S1 , largely stable on MR compared to 2009. She also has some edema in the left paraspinals noted on STIR noted by radiologist, could be indicative of a muscle strain. SIJ provocative tests are negative, Hip MRI also w/o acute findings. Reviewed her care w SURYA Montes w neurosurgery, he ordered x rays of hips. #Acute left mid back and flank -s/p ROBERT without much improvement -relief w caudal injection yesterday, but continues to have groin pain -I reviewed the x rays myself and didn't see anything acute -she is c/o ongoing left groin pain that wraps around the outer hip area and down her leg -spoke w Neurosurgery-no surgery indicated -repeat R C45 ROBERT for neck/arm pain outpatient. - Robaxin, Ibuprofen #Fall at home - with injury as above - mechanical fall having tripped #Acute exacerbation of chronic muscular headache syndrome -no c/o of this today #chronic pain on continuous, chronic opioids -she has a pian doctor she sees in the OP setting -encouraged her to try other modalities for pain such as water therapy, Rolfing -appreciated pharmacy getting involved with treating her pain #Chronic cervical spine pain issues - ongoing care with Dr. Salas of Neurosurgery - no apparent acute injury or problems with the cervical spine other than flare- up of her usual headache - she plans on having cervical spine surgery #Known history of peripheral vascular disease with iliac artery stents -stable #plan: reviewed in detail her care w neurosurgery, having a difficult time trying to figure the true etiology of her pain. she is able to shower, do basic ADL's but says she can't cross her leg and sit for any length of time. Will recheck labs in a.m., including a sed rate and c-reactive protein to be sure nothing acute is going on. Could consider orthopedics, but her pain seems r/t her back. Subjective: Betsy said pain is ok while in bed, unable to sit in chair for long or cross her legs. Objective: Vital Signs Temp Pulse Resp BP Pulse Ox 36.7 C 67 14 132/72 H 96 08/14/18 08:00 08/14/18 08:00 08/14/18 08:00 08/14/18 08:00 08/14/18 08:00 08/13/18 08/14/18 08/15/18 05:59 05:59 05:59 Intake Total 1500 Output Total 300 Balance -300 1500 PT 12.3 SEC (12.0-15.0) 08/08/18 15:39 INR 0.89 (0.83-1.16) 08/08/18 15:39 - Physical Exam Constitutional: uncomfortable Eyes: PERRL Ears, Nose, Mouth, Throat: hearing normal Cardiovascular: regular rate and rhythym Respiratory: no respiratory distress Skin: warm Musculoskeletal: muscular tenderness Neurologic: AAOx3 Psychiatric: interacting appropriately ICD10 Worksheet Patient Problems: Problems Problem Status Onset Back pain Acute Neck pain Acute Dizziness Acute Headache Acute
[2018-08-14] MEDS: TEMAZEPAM 15 MG CAP PO PRN (21:24)
[2018-08-14] MEDS: PATCH REMOVAL 1 EA PATCH TD SCH (21:25)
[2018-08-14] MEDS: DOXEPIN HCL 3 MG PO SCH (21:26)
[2018-08-15] MEDS: IBUPROFEN 200 MG TAB PO PRN ×4 (00:19→22:26)
[2018-08-15] MEDS: oxyCODONE IR 5 MG TAB PO PRN ×7 (00:20→20:27)
[2018-08-15] MEDS: LORazepam 1 MG TAB PO PRN ×4 (04:14→20:27)
[2018-08-15 05:32] LABS: PLATELET COUNT 212 10^3/uL (150-400)
[2018-08-15] MEDS: morphINE SR 60 MG TAB PO SCH ×2 (06:09→17:59)
[2018-08-15] MEDS: PANTOPRAZOLE SODIUM 40 MG TAB PO SCH ×2 (06:09→17:59)
[2018-08-15] MEDS: ACETAMINOPHEN 500 MG TAB PO SCH ×4 (06:09→22:26)
[2018-08-15] MEDS: oxyCODONE IR 5 MG TAB PO SCH ×4 (06:10→17:59)
--- NOTE | 2018-08-15 06:35 | NEUSURGPN ---
Assessment/Plan: Assessment: 62 yo female with a hx of chronic pain. Pt presented with mainly complaining of left groin, anterior hip pain. She continues to complain of left inguinal pain that hurts with rotation of the left hip Plan: -pt has a stable to mildly progressed spondylosis of the lumbar spine on repeat MRI with foraminal stenosis most significant at L45/L5S1, largely stable on MR compared to 2009. She also has some edema in the left paraspinals noted on STIR noted by radiologist, could be indicative of a muscle strain. SI joint provocative tests were negative. Prior reports that the left hip MRI also w/o acute findings to the L spine c/w a strain -caudal injection done 2 days ago and she states that the back pain is better. The left inguinal pain is better this am as well -pt states that she took the gabapentin last night and was able to sleep for 5 hrs -she states that she is not allergic to the gabapentin so we will trial a 100mg TID dosing -upright weight bearing hip films look fine -consider ortho evaluation as well -labs look fine -could repeat right C4-5 ROBERT for neck/arm pain if remains severe, otherwise, we will follow this outpatient. Patient plans to schedule cervical surgery as outpatient -discussed patient with Dr Goncalves -please call neurosurgery with questions/concerns Subjective: Awake and alert. NAD. Eating/drinking and voiding. No f/c/n/v/d. Pt with improved lower back and improving left hip pain Objective: AAO x 3, PERRLA/EOMI no droop CN 2-12 grossly intact +lt touch 5/5 BUE/BLE = Neuro Check Frequency: per routine Urinary Catheter in Place: No - Physician Discussed Patient with Dr.: Goncalves Neurosurgery Physical Exam - Vitals, I&O, Labs I and O 08/14/18 08/15/18 08/16/18 05:59 05:59 05:59 Intake Total 1500 720 Balance 1500 720 Intake: Oral (ml) 1500 720 Other: Intake Quantity Yes Sufficient Number of Voids Toilet 3 4 Vital Signs Temp Pulse Resp BP Pulse Ox 37.0 C 61 18 123/71 H 94 08/14/18 23:31 08/14/18 23:31 08/14/18 23:31 08/14/18 23:31 08/14/18 23:31 Laboratory Results 08/15/18 05:01 08/15/18 05:01 ICD10 Worksheet Patient Problems: Problems Problem Status Onset Back pain Acute Neck pain Acute Dizziness Acute Headache Acute
[2018-08-15] MEDS ORDERED: GABAPENTIN 300 MG CAP PO SCH (07:00)
[2018-08-15] MEDS: METHOCARBAMOL 750 MG TAB PO SCH ×3 (08:42→22:26)
[2018-08-15] MEDS: GABAPENTIN 100 MG CAP PO SCH ×3 (08:43→22:26)
[2018-08-15] MEDS: SENNOSIDES/DOCUSATE SODIUM TAB PO SCH ×2 (08:43→20:27)
[2018-08-15] MEDS: CETIRIZINE 10 MG TAB PO SCH (08:43)
[2018-08-15] MEDS: ENOXAPARIN 40 MG/0.4 ML SYR SC SCH (08:44)
[2018-08-15] MEDS: LIDOCAINE 4%/MENTHOL 1% PATCH TD SCH (10:35)
--- NOTE | 2018-08-15 12:00 | HOSPPROG ---
Hospitalist Progress Note Assessment/Plan: Betsy Acevedo is a 62 y/o female w chronic pain and now w acute pain. C/o left buttock and groin pain. She has stable to mildly progressed spondylosis of the lumbar spine on repeat MRI with foraminal stenosis most significant at L45/L5S1 , largely stable on MR compared to 2009. She also has some edema in the left paraspinals noted on STIR noted by radiologist, could be indicative of a muscle strain. SIJ provocative tests are negative, Hip MRI also w/o acute findings. #Acute left mid back and flank -s/p ROBERT without much improvement -relief w caudal injection but continues to have groin pain -I reviewed the x rays myself and didn't see anything acute -spoke w Neurosurgery-no surgery indicated -repeat R C45 ROBERT for neck/arm pain outpatient. 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 Salas of Neurosurgery - no apparent acute injury or problems with the cervical spine other than flare- up of her usual headache - she plans on having cervical spine surgery #Known history of peripheral vascular disease with iliac artery stents -stable -has good pulses, no swelling #plan: Betsy says pain is too severe to be discharged, she says she didn't get significant relief from the gabapentin but it allowed her to sleep. Spoke w Dr Torres and he will see her, he reviewed her MRI of the left hip-nothing acute noted. Will look at her MRI of the pelvis, thinking she may have a muscle tear and may need time to heal. Appreciate Dr Torres seeing Betsy! Subjective: Betsy said pain is too intense for her to be discharged. Objective: Vital Signs Temp Pulse Resp BP Pulse Ox 37.1 C 76 16 143/71 H 96 08/15/18 08:00 08/15/18 08:00 08/15/18 08:00 08/15/18 08:00 08/15/18 08:00 Laboratory Results 08/15/18 05:01 08/15/18 05:01 08/14/18 08/15/18 08/16/18 05:59 05:59 05:59 Intake Total 1500 720 Balance 1500 720 PT 12.3 SEC (12.0-15.0) 08/08/18 15:39 INR 0.89 (0.83-1.16) 08/08/18 15:39 - Physical Exam Constitutional: no apparent distress, appears nourished, uncomfortable Eyes: PERRL Respiratory: no respiratory distress Skin: warm Musculoskeletal: muscular tenderness (left groin) Neurologic: AAOx3 Psychiatric: interacting appropriately ICD10 Worksheet Patient Problems: Problems Problem Status Onset Back pain Acute Neck pain Acute Dizziness Acute Headache Acute
--- NOTE | 2018-08-15 15:03 | GCON ---
ORTHOPEDIC EMERGENCY ROOM CONSULT DATE OF CONSULTATION: 08/15/2018 CHIEF COMPLAINT: Left groin pain. ASSOCIATED DIAGNOSES: 1. Chronic pain. 2. History of iliac stents. 3. Chronic neck and back pain. HISTORY OF PRESENT ILLNESS: The patient is a 62-year-old female who I was asked for consultation on left groin pain. Her chronic pain provider is Amy. She admits taking oxycodone 5 mg every 3 to 4 hours for her pain needs. She is allergic to all steroid injections, except for Kenalog. She has chung d unremitting left groin pain for about a week. Neurosurgery has seen her. Recommended orthopedic e valuation of her left hip. X-rays and MRI have been performed. MRI pelvis is pending. Please see details of ER H and P and admitting H and P. PHYSICAL EXAMINATION: GENERAL: Pertinent orthopedic examination reveals a well-appearing female. H urried speech. She is ambulatory. She is eating. EXTREMITIES: She has a negative log roll of bila teral hips. She is quite tender over her greater trochanter on the left versus the right. She is ab le to bear weight, but she describes unremitting pain in a C shape sign distribution. She has intact tibial and gastroc soleus that are 5/5, and ability to flex the hip to 100 degrees. IMAGING: X-rays show some mild dysplasia. The joint spaces look fairly well preserved without any e vidence of end-stage arthritis and no fracture. MRI dedicated to the left hip reveal no evidence of fracture. No significant labral pathology. She does have some edema around the greater trochanter bursa, which is mild. No significant effusion ind icating infection. IMPRESSION/RECOMMENDATION: Left groin pain. History of chronic pain. I think this does play a role in her pain. She does have an element of mild greater trochanter bursitis, but I think her pain is out of proportion compared to the MRI findings. The MRI pelvis is pending and we will take a look at that. Otherwise, I would recommend outpatient followup hip evaluation. Possible hip steroid inject ion with Kenalog could be considered. I worry about her steroid load on this hospital visit. /[id number]/MODL
[2018-08-15] MEDS: DOXEPIN HCL 3 MG PO SCH (20:26)
[2018-08-15] MEDS: PATCH REMOVAL 1 EA PATCH TD SCH (20:26)
[2018-08-15] MEDS: TEMAZEPAM 15 MG CAP PO PRN (20:27)
[2018-08-16] MEDS: oxyCODONE IR 5 MG TAB PO PRN ×4 (02:43→12:27)
[2018-08-16] MEDS: LORazepam 1 MG TAB PO PRN ×2 (02:43→12:27)
[2018-08-16] MEDS: IBUPROFEN 200 MG TAB PO PRN ×2 (04:04→10:59)
[2018-08-16] MEDS: ACETAMINOPHEN 500 MG TAB PO SCH ×2 (06:02→13:58)
[2018-08-16] MEDS: PANTOPRAZOLE SODIUM 40 MG TAB PO SCH (06:03)
[2018-08-16] MEDS: morphINE SR 60 MG TAB PO SCH (06:03)
[2018-08-16] MEDS: oxyCODONE IR 5 MG TAB PO SCH ×3 (06:03→13:58)
[2018-08-16 07:57] VITALS: BP 155/81
[2018-08-16] MEDS: LIDOCAINE 4%/MENTHOL 1% PATCH TD SCH (08:09)
[2018-08-16] MEDS: METHOCARBAMOL 750 MG TAB PO SCH (08:09)
[2018-08-16] MEDS: CETIRIZINE 10 MG TAB PO SCH (08:10)
[2018-08-16] MEDS: ENOXAPARIN 40 MG/0.4 ML SYR SC SCH (08:10)
[2018-08-16] MEDS: ASPIRIN 81 MG CHEWABLE TAB PO SCH (08:10)
--- NOTE | 2018-08-16 08:39 | HOSPPROG ---
Hospitalist Progress Note Assessment/Plan: Betsy Acevedo is a 62 y/o female w chronic pain and now w acute pain. C/o left buttock and groin pain. She has stable to mildly progressed spondylosis of the lumbar spine on repeat MRI with foraminal stenosis most significant at L45/L5S1 , largely stable on MR compared to 2009. She also has some edema in the left paraspinals noted on STIR noted by radiologist, could be indicative of a muscle strain. SIJ provocative tests are negative, Hip MRI also w/o acute findings. #Acute left mid back and flank -s/p ROBERT without much improvement -relief w caudal injection but continues to have groin pain -I reviewed the x rays myself and didn't see anything acute -spoke w Neurosurgery-no surgery indicated -repeat R C45 ROBERT for neck/arm pain outpatient. 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 Salas of Neurosurgery - no apparent acute injury or problems with the cervical spine other than flare- up of her usual headache - she plans on having cervical spine surgery #Known history of peripheral vascular disease with iliac artery stents -stable -has good pulses, no swelling -will have her f/u with her windmill technician to evaluate #plan: dc to rehab w close f/u w her windmill technician and Dr Torres Subjective: Betsy said many of her areas of pain are better, but the groin pain is persistent making it hard for her to ambulate. Objective: Vital Signs Temp Pulse Resp BP Pulse Ox 36.4 C 71 16 155/81 H 95 08/16/18 07:52 08/16/18 07:52 08/16/18 07:52 08/16/18 07:52 08/16/18 07:52 Laboratory Results 08/15/18 05:01 08/15/18 05:01 08/15/18 08/16/18 08/17/18 05:59 05:59 05:59 Intake Total 720 1500 Output Total 1450 Balance 720 50 PT 12.3 SEC (12.0-15.0) 08/08/18 15:39 INR 0.89 (0.83-1.16) 08/08/18 15:39 - Physical Exam Constitutional: no apparent distress, appears nourished, uncomfortable Eyes: PERRL Ears, Nose, Mouth, Throat: hearing normal Cardiovascular: other (2+ pedal pulses) Respiratory: no respiratory distress Skin: warm Musculoskeletal: generalized weakness Neurologic: AAOx3 Psychiatric: interacting appropriately ICD10 Worksheet Patient Problems: Problems Problem Status Onset Back pain Acute Neck pain Acute Dizziness Acute Headache Acute
--- NOTE | 2018-08-16 08:45 | PDIAF ---
- Diagnosis Diagnosis: acute on chronic back pain, left hip and groin pain Code Status: Full Code - Medication Management Discharge Medications: electronically signed and located in the Home Medication List. - Orders Services needed: Physical Therapy, Occupational Therapy Isolation Type: None Diet Recommendation: no restrictions on diet Diet Texture: Regular Texture Diet Additional Instructions: new medications include: Gabapentin and extra oxy IR 5-10 prn (recommending weaning this off) further f/u with Dr Torres to get an injection in her left hip-in 4 weeks f/u with her quarter seamer in [place] to evaluate her iliac stent follow up w her pain specialist - Follow Up Care Current Providers and Referrals: NONE *PRIMARY CARE P,. [Unknown] - As per Instructions Rabia Torres MD [Medical Doctor] -
--- NOTE | 2018-08-16 08:46 | NEUSURGPN ---
Assessment/Plan: Assessment: 62 yo female with a hx of chronic pain. Pt presented with mainly complaining of left groin, anterior hip pain. She continues to complain of left inguinal pain Plan: -pt has a stable to mildly progressed spondylosis of the lumbar spine on repeat MRI with foraminal stenosis most significant at L45/L5S1, largely stable on MR compared to 2009. She also has some edema in the left paraspinals noted on STIR noted by radiologist, could be indicative of a muscle strain. SI joint provocative tests were negative. Prior reports that the left hip MRI also w/o acute findings to the L spine c/w a strain -caudal injection help with gluteal pain. Still with some left inguinal pain. -Continue gabapentin so we will trial a 100mg TID dosing -upright weight bearing hip films look fine -could repeat right C4-5 ROBERT for neck/arm pain if remains severe, otherwise, we will follow this outpatient. Patient plans to schedule cervical surgery as outpatient -discussed patient with Dr Goncalves, will s/o at this time. Patient can follow up on 4-6weeks as an outpatient -please call neurosurgery with questions/concerns Subjective: gluteal pain improved. Still with some left groin pain. Objective: AAO x 3, CN 2-12 grossly intact MAEx4 5/5 and equal in BUE and BLE. +lt touch - Physician Discussed Patient with : Ivanna Neurosurgery Physical Exam - Vitals, I&O, Labs I and O 08/15/18 08/16/18 08/17/18 05:59 05:59 05:59 Intake Total 720 1500 Output Total 1450 Balance 720 50 Intake: Oral (ml) 720 1500 Output: Urine (ml) 1450 Bedside Commode 1450 Other: Intake Quantity Yes Yes Sufficient Number of Voids Toilet 4 Vital Signs Temp Pulse Resp BP Pulse Ox 36.4 C 71 16 155/81 H 95 08/16/18 07:52 08/16/18 07:52 08/16/18 07:52 08/16/18 07:52 08/16/18 07:52 Laboratory Results 08/15/18 05:01 08/15/18 05:01 ICD10 Worksheet Patient Problems: Problems Problem Status Onset Back pain Acute Neck pain Acute Dizziness Acute Headache Acute
[2018-08-16] MEDS: SENNOSIDES/DOCUSATE SODIUM TAB PO SCH (09:10)
[2018-08-16] MEDS: GABAPENTIN 100 MG CAP PO SCH (09:10)
[2018-08-16] MEDS: MAGNESIUM HYDROXIDE 30 ML UDCUP PO PRN (09:10)
--- NOTE | 2018-08-16 09:13 | ASMTLACE ---
LACE Length of stay for Answers: 7-13 days current admission Acuity / Level of Answers: Yes Care: Did the patient have an inpatient admission? Comorbidities - select Answers: Coronary Artery Disease all that apply Opioid dependence / Chronic pain Peripheral vascular disease Other Notes: HLD; GERD # of Emergency department Answers: 1-2 visits in the last 6 months Score: 17 Date Signed: 08/16/2018 09:13 AM Electronically Signed By:Ciara Maciel RN
--- NOTE | 2018-08-16 10:04 | GDS ---
DISCHARGE DIAGNOSES: 1. Acute back pain and flank pain, as well as left groin and left hip pain. 2. Fall at home, with injury. 3. Hyponatremia. 4. 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 5. Chronic pain, on continuous chronic opioids. 6. Chronic cervical spine pain issues. 7. History of peripheral vascular disease, with iliac artery stents in place. CONSULTATIONS: 1. Marilyn Rader, nurse practitioner with Neurosurgery. 2. Dr. Rabia Torres, with Orthopedics. HISTORY: Briefly, the patient is a 62-year-old woman who has been seen by Dr. Goncalves in regard to cer vical spine issues. She has a history of a C5-C6 fusion in 1998 with an outside surgeon and had been getting injections at the right C4-5 at [facility]. She presented to the emergency room with left lower ba ck pain, with spasms that wrapped around into her flank region. She denied any radicular symptoms. She tripped going up some stairs and fell forward, lunging forward. She is on pain medications chron icay, including long-acting morphine and Oxy IR. She had multiple imaging done throughout her stay , which nothing showed an acute injury. She had a lumbar steroid injection on August 11. This was a n L5 selective nerve root block, with some improvement of her symptoms. Then, on August 13, she had a caudal epidural steroid injection and short-acting anesthetic injection performed. She did get rel ief from this. She continued to have left groin pain and left hip pain. Subsequently, she was seen and evaluated by Orthopedics, who recommended doing a Kenalog injection into her left hip in 4 weeks to see if this would give her some relief. Today, she continues to complain of left groin pain. Malena myrick recommended that she follow up with her pediatric physiatrist in [place] to get evaluation of her iliac gentry nts. She does have good pulses and no claudication in her left leg. She will further follow up with her doctor in the [place] area. In the interim, she will go to a residential facility for rehab to see how she does prior to going home. HOSPITAL COURSE: 1. Acute left mid back, flank, left hip and left groin pain. She is status post an epidural steroid injection and caudal injection. Overall, the pain in her back is much improved. She continues to h ave left hip pain and left groin pain. Further followup with Orthopedics in the outpatient setting, as well as her pediatric physiatrist. 2. Fall at home. Will get physical therapy and occupational therapy. 3. Hyponatremia, likely due to decreased solute intake. 4. Acute exacerbation of chronic muscular headache syndromes. None further. 5. Chronic pain, on continuous chronic opioids. She has a pain doctor she sees in the outpatient se tting. Her dose of OxyIR has been increased. Recommending she wean off some of these medications. 6. Chronic cervical spine issues. She has no acute injury or problems with the cervical spine, othe r than a flare-up at this time. She is planning on having cervical spine surgery in the outpatient s etting, eventually further followup with Dr. Goncalves. 7. Known history of peripheral vascular disease, with iliac artery stents. She has good pulses. No swelling. Will have her follow up with her pediatric physiatrist. DISCHARGE CONDITION: Stable. Blood pressure is 155/81, heart rate of 71, respiratory rate of 16, O2 saturation on room air 95%, temperature 36.4 Celsius. DISCHARGE MEDICATIONS: Please see the EMR. DISCHARGE INSTRUCTIONS: 1. Recommending she wean off some of her narcotics. 2. Further followup with Dr. Goncalves. 3. Further followup with Dr. Torres. 4. Further followup with her pediatric physiatrist. 5. If she develops fever, chills, chest pain, return to the ER. 6. Greater than 30 minutes discharging and coordinating her care. /[id number]/MODL
--- NOTE | 2018-08-16 10:11 | ASMTDCNOTE ---
Case Management Discharge Discharge Order Complete? Answers: Yes Patient to Obtain Answers: Other Notes: [facility] Transportation Arranged Answers: Other Notes: [facility] Transport will Pick (Date 08/16/2018 02:00 PM & Time) Faxed Final Orders Answers: Yes Discharge Comments Notes: Patient discharged to [facility]. Transport arranged by Angeline @ [facility]. AUSTEN Arthur to call report. Date Signed: 08/16/2018 10:11 AM Electronically Signed By:Ciara Maciel RN
--- NOTE | 2018-08-16 16:40 | ASDISCHSUM ---
Discharge Information Plan Status:SNF Medically Cleared to Leave: Discharge Date:08/16/2018 02:25 PM CM D/C Disposition: ADT D/C Disposition:Long-Term Facility Projected Discharge Date:08/12/2018 11:00 AM Transportation at D/C: Discharge Delay Reason: Follow-Up Date:08/12/2018 11:00 AM Discharge Slot: Final Diagnosis: Placement Information Referral Type:*Jail/SNF Referral ID:[id number] Provider Name:[facility] Address 1:[address] Address 2: City:[place] Selection Factors: State:[place] Patient Contact Information Contact Name:CELENANIKITACONSTANTINO Relationship:Daughter Address: Work Phone: City: [facility] Phone: [facility] Code: Email: Financial Information Financial Class:Medicare Primary Plan Desc:MEDICARE INPATIENT Primary Plan Number:[id number] Secondary Plan Desc:MED[place] Secondary Plan Number:[id number] Assessment Information LACE LACE Length of stay for Answers: 7-13 days current admission Acuity / Level of Answers: Yes Care: Did the patient have an inpatient admission? Comorbidities - select Answers: Coronary Artery Disease all that apply Opioid dependence / Chronic pain Peripheral vascular disease Other Notes: HLD; GERD # of Emergency department Answers: 1-2 visits in the last 6 months Score: 17 Date Signed: 08/16/2018 09:13 AM Electronically Signed By:Ciara Maciel RN [facility] Initial CM Assessment Living Arrangements What is your living Answers: With Child(riki) arrangement? Who do you live with? Type Of Residence What kind of residence do Answers: Apartment you live in? Discharge Plan Comments Coordination Status Comments Notes: Patient is a 62yo single female who fell at home and is experiencing acute left mid back and flank pain, severe spasm, impaired mobility and an acute exacerbation of chronic muscular headache syndrome. She will be here for observation, pain management, and PT/OT. D/C plan TBD. CM will follow. Date Signed: 08/09/2018 11:06 AM Electronically Signed By:Martha Hernandez LCSW [facility] CM Progress Note CM Note CM Note Notes: OT rec SNF, PT rec home. Spoke with pt about SNF, reports she will need to go to SNF because due to the pain she "has no choice." Pt provided SNF list and referrals sent [facility]. Pt may choose [facility]. CM to follow. Date Signed: 08/10/2018 01:07 PM Electronically Signed By:MIKE Pope [facility] BERTIN Progress Note CM Note CM Note Notes: Pt chooses [facility] for d/c, likely tomorrow. Angeline at [facility] updated. CM to follow. Date Signed: 08/13/2018 02:17 PM Electronically Signed By:MIKE Pope Case Management Discharge Plan Note Case Management Discharge Discharge Order Complete? Answers: Yes Patient to Obtain Answers: Other Notes: [facility] Transportation Arranged Answers: Other Notes: [facility] Transport will Pick (Date 08/16/2018 02:00 PM & Time) Faxed Final Orders Answers: Yes Discharge Comments Notes: Patient discharged to [facility]. [facility] to call report. Date Signed: 08/16/2018 10:11 AM Electronically Signed By:Ciara Maciel RN Intervention Information Intervention Type:*ROJO-Signed Date of Service:08/09/2018 11:38 AM Patient Type:Observation Staff Member:Dayana Mancera Hours: Discipline: Severity: Comment: Intervention Type:*IM-Signed Date of Service:08/13/2018 03:05 PM Patient Type:Inpatient Staff Member:Dayana Mancera Hours: Discipline: Severity: Comment:
== END 2018-08-16 14:25 | DRG 552 ==
LOC: F3N 15:48 → OBSVTOIN 08-09 14:08 → F3N 08-11 06:51
PROVIDERS: ADMIT Internal Medicine; ATTEND Internal Medicine
PROC: 3E0T3BZ Introduction of Anesthetic Agent into Peripheral Nerves and Plexi, Percutaneous Approach (ICD-10-PCS; 2018-08-11)
PROC: 3E0S33Z Introduction of Anti-inflammatory into Epidural Space, Percutaneous Approach (ICD-10-PCS; principal; 2018-08-13)
DX: M54.9 Dorsalgia, unspecified (principal); R10.30 Lower abdominal pain, unspecified; M25.559 Pain in unspecified hip; M62.830 Muscle spasm of back; W19.XXXA Unspecified fall, initial encounter; R51 Headache; E87.1 Hypo-osmolality and hyponatremia; G89.29 Other chronic pain; M50.321 Other cervical disc degeneration at C4-C5 level; I73.9 Peripheral vascular disease, unspecified; K21.9 Gastro-esophageal reflux disease without esophagitis; I25.10 Atherosclerotic heart disease of native coronary artery without angina pectoris; Z98.1 Arthrodesis status
CPT/HCPCS: 96374; 97110-GP; 97116-GP; 97140-GP; 97161-GP; 97166-GO; 97530-GP; 97535-GO; A9585; G0378; G8978-GP-CI; G8979-GP-CI; G8987-GO-CK; G8988-GO-CI; J1170; J1650; J1885; J3301; Q9967

== ENCOUNTER → 2018-09-03 | Outpatient (CLI) | payer OTHER, MEDICAID | LOC: FIMAGING 09:48 | PROVIDERS: ATTEND Nurse Practitioner Family | DX: R10.32 Left lower quadrant pain (principal) ==

== ENCOUNTER → 2018-09-14 | Outpatient (CLI) | payer OTHER, MEDICAID | LOC: FIMAGING 12:08 | PROVIDERS: ATTEND Internal Medicine Geriatric Medicine | DX: Z12.31 Encounter for screening mammogram for malignant neoplasm of breast (principal) ==

== ENCOUNTER → 2018-10-21 | Outpatient (CLI) | payer OTHER, MEDICAID | LOC: BHFA 09:00 | PROVIDERS: ATTEND Internal Medicine Cardiovascular Disease | DX: I25.10 Atherosclerotic heart disease of native coronary artery without angina pectoris (principal) | CPT/HCPCS: 78452; 93017; A9500; J2785 ==

== ENCOUNTER 2018-11-27 19:53 | Inpatient (IN) | payer OTHER, MEDICAID ==
[2018-11-27] MEDS ORDERED: NS 1,000 ML IV ONE (20:08)
--- NOTE | 2018-11-27 20:08 | EDPHY ---
H & P Time Seen by Provider: 11/27/18 19:58 HPI/ROS: CHIEF COMPLAINT: Abdominal pain HISTORY OF PRESENT ILLNESS: Patient says she has had these symptoms for at least the last several months. She had admission in the end of last year for abdominal pain and back pain. She sees Dr. Gorge Rendon from Gastroenterology and has a CT scan scheduled for this week. She says that she now has severe left lower quadrant abdominal pain which is worse when she pushes on it. Started this morning around 7:00 a.m. About an hour after waking up. It is not better with her usual oral long-acting morphine. Does not radiate, not associated with vomiting or diarrhea. Does have associated severe nausea. Describes associated mucus in her stool. REVIEW OF SYSTEMS: Eye: no change in vision, sore eyes bilaterally not new ENT: for 10 days, sore throat Cardiac: no chest pain or syncope Pulmonary: no cough or SOB Abdomen: no vomiting, diarrhea; has nausea Musculoskeletal: On narcotics for chronic back pain 60 mg extended release morphine twice a day, previous spinal surgery, joint pains Skin: ecchymosis both forearms Neuro: mild headache Constitutional: no fever : no urinary symptoms A comprehensive 10 point review of systems is otherwise negative aside from elements mentioned in the history of present illness. PAST MEDICAL HISTORY: Includes previous spine surgery cervical and lumbar with chronic pain, peripheral vascular disease and coronary disease. Iliac artery stents. History of hyponatremia. Hysterectomy, cholecystectomy. Ulcerative colitis. Social history: Former smoker, retired nurse General Appearance: Alert and conversant, cooperative. Eyes: No scleral icterus. ENT, Mouth: Normal mucous membranes. Normal pharynx, normal voice, no trismus. Respiratory: Normal respiratory effort, breath sounds equal, lungs are clear to auscultation. Cardiovascular: Regular rate and rhythm. Gastrointestinal: Left lower quadrant abdominal pain and tenderness but no rebound or guarding and no hernia. Neurological: Alert, face symmetric, normal motor and sensory in extremities. Skin: scattered ecchymosis both forearms Musculoskeletal: No peripheral edema. Psychiatric: Not agitated. Emergency Department course/MDM: Plan for IV pain medication, Chem 8, CT scan abdomen and pelvis with IV contrast. Dilaudid 1mg IV, zofran 4mg IV. 2046: Normal abdominal pelvis CT per Dr. Patterson. Results discussed with the patient. Intractable pain despite high-dose oral narcotics at home. Admission hospitalist service with gastroenterology consultation. 2100: Viktoriya will consult tomorrow for [place]. 2107: Cydney will admit for hospitalist. Smoking Status: Former smoker Constitutional: Initial Vital Signs Temperature (C) 36.6 C 11/27/18 20:00 Heart Rate 89 11/27/18 20:00 Respiratory Rate 20 11/27/18 20:00 Blood Pressure 162/94 H 11/27/18 20:00 O2 Sat (%) 97 11/27/18 20:00 O2 Delivery Mode Room Air Allergies/Adverse Reactions: Penicillins Allergy (Severe, Verified 11/27/18 20:00) ANAPHYLACTIC meperidine HCl [From Demerol] Allergy (Intermediate, Verified 11/27/18 20:00) ANXIOUS prednisone [Prednisone] Allergy (Intermediate, Verified 11/27/18 20:00) Other-Enter Comments Sulfa (Sulfonamide Antibiotics) Allergy (Intermediate, Verified 11/27/18 20:00) NAUSEA clopidogrel bisulfate [From Plavix] Allergy (Verified 11/27/18 20:00) Rash ioversol [From Optiray 160] Allergy (Verified 11/27/18 20:00) Quinolones Allergy (Verified 11/27/18 20:00) Other-Enter Comments Home Medications: Medication Instructions Recorded Diclofenac Sodium 1% [Voltaren Gel 4 gm TP QID PRN 04/04/18 (*)] Pantoprazole Sodium [Protonix 40mg 40 mg PO BIDMEAL 04/04/18 (*)] morphINE SR [MS Contin/Oramorph 60 60 mg PO BID@,18 04/04/18 mg (*)] oxyCODONE IR [Oxycodone Ir (*)] 10 mg PO HS PRN 04/04/18 oxyCODONE IR [Oxycodone Ir (*)] 10 mg PO QID@06,10,14,18 04/04/18 Aspirin [Aspirin 81mg (*)] 81 mg PO Q2D 04/07/18 Methocarbamol [Robaxin 750 mg (*)] 750 mg PO TID PRN #60 tab 04/07/18 Doxepin HCl [Silenor] 3 mg PO HS 08/08/18 Fexofenadine HCl [Leonarda Allergy] 180 mg PO DAILY 08/08/18 Gabapentin [Neurontin 300 MG (*)] 300 mg PO HS 08/08/18 Acetaminophen [Tylenol ES 500 mg 1,000 mg PO Q8HRS tab 08/16/18 (*)] Gabapentin [Neurontin 100 MG (*)] 100 mg PO TID cap 08/16/18 Ibuprofen [Motrin (*)] 400 mg PO Q6HRS PRN tab 08/16/18 Lidocaine 4%/Menthol 1% [Icy Hot 1 patch TD DAILY patch 08/16/18 Lidocaine/Menthol 4%/1% Patch (*)] Polyethylene Glycol 3350 [Miralax 17 gm PO DAILY PRN pkt 08/16/18 17 gm (*)] Sennosides/Docusate Sodium 1 - 2 tab PO BID tab 08/16/18 [Senokot-S] oxyCODONE IR [Oxycodone Ir (*)] 5 - 10 mg PO Q3HRS PRN tab 08/16/18 Medical Decision Making Differential Diagnosis: Differential considered including but not limited to diverticulitis, bowel obstruction, intra-abdominal abscess, appendicitis - Data Points Laboratory Results: Laboratory Results 11/27/18 20:00 11/27/18 20:00 11/27/18 11/27/18 11/27/18 20:13 20:00 20:00 WBC 6.15 10^3/uL 10^3/uL (3.80-9.50) RBC 3.96 10^6/uL L 10^6/uL (4.18-5.33) Hgb 12.7 g/dL g/dL (12.6-16.3) POC Hgb 13.3 gm/dL gm/dL (12.6-16.3) Hct 37.3 % L % (38.0-47.0) POC Hct 39 % % (38-47) MCV 94.2 fL fL (81.5-99.8) MCH 32.1 pg pg (27.9-34.1) MCHC 34.0 g/dL g/dL (32.4-36.7) RDW 12.8 % % (11.5-15.2) Plt Count 216 10^3/uL 10^3/uL (150-400) MPV 9.2 fL fL (8.7-11.7) Neut % (Auto) 52.9 % % (39.3-74.2) Lymph % (Auto) 36.1 % % (15.0-45.0) [place] % (Auto) 9.6 % % (4.5-13.0) Eos % (Auto) 0.3 % L % (0.6-7.6) Baso % (Auto) 0.8 % % (0.3-1.7) Nucleat RBC Rel Count 0.0 % % (0.0-0.2) Absolute Neuts (auto) 3.25 10^3/uL 10^3/uL (1.70-6.50) Absolute Lymphs (auto) 2.22 10^3/uL 10^3/uL (1.00-3.00) Absolute Monos (auto) 0.59 10^3/uL 10^3/uL (0.30-0.80) Absolute Eos (auto) 0.02 10^3/uL L 10^3/uL (0.03-0.40) Absolute Basos (auto) 0.05 10^3/uL 10^3/uL (0.02-0.10) Absolute Nucleated RBC 0.00 10^3/uL 10^3/uL (0-0.01) Immature Gran % 0.3 % % (0.0-1.1) Immature Gran # 0.02 10^3/uL 10^3/uL (0.00-0.10) POC Sodium 137 mEq/L mEq/L (135-145) Sodium 134 mEq/L L mEq/L (135-145) POC Potassium 3.6 mEq/L mEq/L (3.3-5.0) Potassium 3.9 mEq/L mEq/L (3.5-5.2) POC Chloride 100 mEq/L mEq/L (97-110) Chloride 100 mEq/L mEq/L (97-110) Carbon Dioxide 23 mEq/l mEq/l (22-31) POC Total CO2 24 mEq/L mEq/L (22-31) Anion Gap 11 mEq/L mEq/L (6-14) POC BUN 7 mg/dL mg/dL (7-23) BUN 9 mg/dL mg/dL (7-23) Creatinine 0.7 mg/dL mg/dL (0.6-1.0) POC Creatinine 0.8 mg/dL mg/dL (0.6-1.0) Estimated GFR > 60 Glucose 89 mg/dL mg/dL (70-100) POC Glucose 91 mg/dL mg/dL (70-100) Calcium 9.1 mg/dL mg/dL (8.5-10.4) Medications Given: Discontinued Medications Hydromorphone HCl (Dilaudid) 1 mg IVP EDNOW ONE Stop: 11/27/18 20:14 Last Admin: 11/27/18 20:21 Dose: 1 mg Sodium Chloride (Ns) 1,000 mls @ 0 mls/hr IV EDNOW ONE; Wide Open PRN Reason: Protocol Stop: 11/27/18 20:09 Last Admin: 11/27/18 20:20 Dose: 1,000 mls Ondansetron HCl (Zofran) 4 mg IVP EDNOW ONE Stop: 11/27/18 20:14 Last Admin: 11/27/18 20:21 Dose: 4 mg Point of Care Test Results: Chemistry 11/27/18 20:13 POC Sodium 137 mEq/L mEq/L (135-145) POC Potassium 3.6 mEq/L mEq/L (3.3-5.0) POC Chloride 100 mEq/L mEq/L (97-110) POC Total CO2 24 mEq/L mEq/L (22-31) POC BUN 7 mg/dL mg/dL (7-23) POC Creatinine 0.8 mg/dL mg/dL (0.6-1.0) POC Glucose 91 mg/dL mg/dL (70-100) ISTAT H&H 11/27/18 20:13 POC Hgb 13.3 gm/dL gm/dL (12.6-16.3) POC Hct 39 % % (38-47) Departure - Departure Disposition: [facility] Inpatient Acute Clinical Impression: Abdominal pain Qualifiers: Abdominal location: left lower quadrant Qualified Code(s): R10.32 - Left lower quadrant pain Condition: Good
[2018-11-27] MEDS ORDERED: ONDANSETRON 4 MG/2 ML VIAL IVP ONE (20:13)
[2018-11-27] MEDS ORDERED: HYDROmorphONE/DILAUDID 2 MG/ML INJ IVP ONE (20:13)
[2018-11-27 20:21] LABS: PLATELET COUNT 216 10^3/uL (150-400)
[2018-11-27] MEDS ORDERED: IOPAMIDOL (ISOVUE-300) 100 ML BTL ONE (20:23)
[2018-11-27] MEDS ORDERED: morphINE SR 60 MG TAB PO ONE (20:52)
[2018-11-27] MEDS ORDERED: ONDANSETRON 4 MG/2 ML VIAL IVP PRN (22:34)
[2018-11-27] MEDS ORDERED: HYDROmorphONE/DILAUDID 1 MG/ML INJ IVP PRN (22:37)
[2018-11-27] MEDS: oxyCODONE IR 5 MG TAB PO PRN ×2 (23:01→23:26)
[2018-11-27] MEDS: NS 1,000 ML IV SCH (23:04)
[2018-11-28] MEDS ORDERED: DICLOFENAC SODIUM 1% 100 GM GEL TP PRN (00:01)
[2018-11-28] MEDS ORDERED: DOCUSATE SODIUM 100 MG CAP PO PRN (00:01)
[2018-11-28] MEDS ORDERED: LIDOCAINE 4%/MENTHOL 1% PATCH TD PRN (00:01)
[2018-11-28] MEDS: tiZANidine HCL 2 MG TAB PO PRN (00:31)
[2018-11-28] MEDS: ACETAMINOPHEN 500 MG TAB PO PRN ×3 (00:31→16:34)
[2018-11-28] MEDS: GABAPENTIN 300 MG CAP PO SCH ×2 (00:31→20:29)
[2018-11-28] MEDS: ONDANSETRON DISINTEGRATING 4 MG TAB PO PRN ×2 (00:34→05:03)
--- NOTE | 2018-11-28 01:22 | PDGENHP ---
History and Physical - Chief Complaint LLQ pain - History of Present Illness 63 yo F w/ hx of chronic pain on chronic opiates and hx of PVD with iliac stent in place presents with acute on chronic abdominal pain. The patient was admitted here in August of this year for management of neck pain, back pain, and LLQ pain. She tells me these issues have essentially continued. Over the last week her LLQ pain has particularly worsened. Today it worsened to the point where her home opiates were not sufficient. She also describes intermittent fevers, chills, body aches, and diffuse joint pains. She tells me her stool has been changing in quality on a daily basis. Her stools have changed from loose, to hard, to dark tarry on a day to day basis. She tells me she has not had a BM today. She denies BRBPR. She has a colonoscopy about 1 year ago for similar symptoms that she tells me demonstrated some colonic inflammation but no clear pathology. She thinks she may have had a UC flare about 20 years ago. In the ED her evaluation is reassuring including laboratory work-up and CT. Her abdomen is soft but she is tender only in the LLQ. Case discussed with Dr. Lamas; records reviewed and summarized above. History Information - Allergies/Home Medication List Allergies/Adverse Reactions: Penicillins Allergy (Severe, Verified 11/27/18 20:00) ANAPHYLACTIC meperidine HCl [From Demerol] Allergy (Intermediate, Verified 11/27/18 20:00) ANXIOUS prednisone [Prednisone] Allergy (Intermediate, Verified 11/27/18 20:00) Other-Enter Comments Sulfa (Sulfonamide Antibiotics) Allergy (Intermediate, Verified 11/27/18 20:00) NAUSEA clopidogrel bisulfate [From Plavix] Allergy (Verified 11/27/18 20:00) Rash ioversol [From Optiray 160] Allergy (Verified 11/27/18 20:00) Quinolones Allergy (Verified 11/27/18 20:00) Other-Enter Comments Home Medications: Diclofenac Sodium 1% [Voltaren Gel (*)] 4 gm TP QID PRN 04/04/18 [Last Taken ] Pantoprazole Sodium [Protonix 40mg (*)] 40 mg PO BIDMEAL 04/04/18 [Last Taken ] morphINE SR [MS Contin/Oramorph 60 mg (*)] 60 mg PO BID@04/04/18 [Last Taken 11/26/18] Aspirin [Aspirin 81mg (*)] 81 mg PO Q2D 04/07/18 [Last Taken 11/27/18] Fexofenadine HCl [Leonarda Allergy] 180 mg PO DAILY PRN 08/08/18 [Last Taken 06:00] Gabapentin [Neurontin 300 MG (*)] 300 mg PO HS 08/08/18 [Last Taken 11/26/18] Acetaminophen [Tylenol ES 500 mg (*)] 1,000 mg PO Q8HRS PRN 11/27/18 [Last Taken Unknown] Docusate Sodium [Colace 100 MG (*)] 100 mg PO BID PRN 11/27/18 [Last Taken Unknown] Levocetirizine Dihydrochloride [Xyzal] 5 mg PO DAILY PRN 11/27/18 [Last Taken Unknown] Lidocaine 4%/Menthol 1% [Icy Hot Lidocaine/Menthol 4%/1% Patch (*)] 1 patch TD DAILY PRN 11/27/18 [Last Taken Unknown] Losartan Potassium [Cozaar 50 mg (*)] 50 mg PO HS 11/27/18 [Last Taken 11/26/18] Olopatadine HCl [Pazeo] 2.5 ml EACHEYE DAILY 11/27/18 [Last Taken 11/27/18] Tears/Dextran 70/Hypromellose [Natural Balance Tears (*)] 1 drop EACHEYE Q2 PRN 11/27/18 [Last Taken Unknown] oxyCODONE HCL/ACETAMINOPHEN [Percocet 10-325 mg Tablet] 1 each PO TID 11/27/18 [ Last Taken 11/27/18 14:00] oxyCODONE/APAP 5/325 [Percocet 5/325 (*)] 1 tab PO HS 11/27/18 [Last Taken 11/26] tiZANidine HCL [Zanaflex 2MG (*)] 4 mg PO Q6 PRN 11/27/18 [Last Taken 11/26/18] I have personally reviewed and updated: family history, medical history - Past Medical History peripheral artery disease Additional medical history: Chronic pain - Surgical History Additional surgical history: Iliac stent - Family History Positive for: cancer (Colon) - Social History Smoking Status: Former smoker Review of Systems Review of Systems: ROS: 10pt was reviewed & negative except for what was stated in HPI & below Physical Exam Physical Exam: Temp Pulse Resp BP Pulse Ox 36.5 C 68 16 100/61 94 11/28/18 00:11 11/28/18 00:11 11/28/18 00:11 11/28/18 00:11 11/28/18 00:11 Constitutional: appears nourished, uncomfortable Eyes: PERRL, EOMI Ears, Nose, Mouth, Throat: moist mucous membranes, no oral mucosal ulcers Cardiovascular: regular rate and rhythym, no murmur, rub, or gallop Respiratory: no respiratory distress, clear to auscultation Gastrointestinal: normoactive bowel sounds, tenderness (LLQ), No guarding, No rebound, No distension Skin: warm, normal color Musculoskeletal: full muscle strength, no muscle tenderness Neurologic: AAOx3, CN II-XII Intact Psychiatric: interacting appropriately, not anxious Lab Data & Imaging Review 11/27/18 20:00 11/27/18 20:00 WBC 6.15 10^3/uL (3.80-9.50) 11/27/18 20:00 RBC 3.96 10^6/uL (4.18-5.33) L 11/27/18 20:00 Hgb 12.7 g/dL (12.6-16.3) 11/27/18 20:00 POC Hgb 13.3 gm/dL (12.6-16.3) 11/27/18 20:13 Hct 37.3 % (38.0-47.0) L 11/27/18 20:00 POC Hct 39 % (38-47) 11/27/18 20:13 MCV 94.2 fL (81.5-99.8) 11/27/18 20:00 MCH 32.1 pg (27.9-34.1) 11/27/18 20:00 MCHC 34.0 g/dL (32.4-36.7) 11/27/18 20:00 RDW 12.8 % (11.5-15.2) 11/27/18 20:00 Plt Count 216 10^3/uL (150-400) 11/27/18 20:00 MPV 9.2 fL (8.7-11.7) 11/27/18 20:00 Neut % (Auto) 52.9 % (39.3-74.2) 11/27/18 20:00 Lymph % (Auto) 36.1 % (15.0-45.0) 11/27/18 20:00 [place] % (Auto) 9.6 % (4.5-13.0) 11/27/18 20:00 Eos % (Auto) 0.3 % (0.6-7.6) L 11/27/18 20:00 Baso % (Auto) 0.8 % (0.3-1.7) 11/27/18 20:00 Nucleat RBC Rel Count 0.0 % (0.0-0.2) 11/27/18 20:00 Absolute Neuts (auto) 3.25 10^3/uL (1.70-6.50) 11/27/18 20:00 Absolute Lymphs (auto) 2.22 10^3/uL (1.00-3.00) 11/27/18 20:00 Absolute Monos (auto) 0.59 10^3/uL (0.30-0.80) 11/27/18 20:00 Absolute Eos (auto) 0.02 10^3/uL (0.03-0.40) L 11/27/18 20:00 Absolute Basos (auto) 0.05 10^3/uL (0.02-0.10) 11/27/18 20:00 Absolute Nucleated RBC 0.00 10^3/uL (0-0.01) 11/27/18 20:00 Immature Gran % 0.3 % (0.0-1.1) 11/27/18 20:00 Immature Gran # 0.02 10^3/uL (0.00-0.10) 11/27/18 20:00 POC Sodium 137 mEq/L (135-145) 11/27/18 20:13 Sodium 134 mEq/L (135-145) L 11/27/18 20:00 POC Potassium 3.6 mEq/L (3.3-5.0) 11/27/18 20:13 Potassium 3.9 mEq/L (3.5-5.2) 11/27/18 20:00 POC Chloride 100 mEq/L (97-110) 11/27/18 20:13 Chloride 100 mEq/L (97-110) 11/27/18 20:00 Carbon Dioxide 23 mEq/l (22-31) 11/27/18 20:00 POC Total CO2 24 mEq/L (22-31) 11/27/18 20:13 Anion Gap 11 mEq/L (6-14) 11/27/18 20:00 POC BUN 7 mg/dL (7-23) 11/27/18 20:13 BUN 9 mg/dL (7-23) 11/27/18 20:00 Creatinine 0.7 mg/dL (0.6-1.0) 11/27/18 20:00 POC Creatinine 0.8 mg/dL (0.6-1.0) 11/27/18 20:13 Estimated GFR > 60 11/27/18 20:00 Glucose 89 mg/dL (70-100) 11/27/18 20:00 POC Glucose 91 mg/dL (70-100) 11/27/18 20:13 Calcium 9.1 mg/dL (8.5-10.4) 11/27/18 20:00 Urine Color COLORLESS 11/27/18 21:20 Urine Appearance CLEAR 11/27/18 21:20 Urine pH 6.0 (5.0-7.5) 11/27/18 21:20 Ur Specific [place] 1.008 (1.002-1.030) 11/27/18 21:20 Urine Protein NEGATIVE (NEGATIVE) 11/27/18 21:20 Urine Ketones NEGATIVE (NEGATIVE) 11/27/18 21:20 Urine Blood NEGATIVE (NEGATIVE) 11/27/18 21:20 Urine Nitrate NEGATIVE (NEGATIVE) 11/27/18 21:20 Urine Bilirubin NEGATIVE (NEGATIVE) 11/27/18 21:20 Urine Urobilinogen NEGATIVE EU (0.2-1.0) 11/27/18 21:20 Ur Leukocyte Esterase NEGATIVE (NEGATIVE) 11/27/18 21:20 Urine Glucose NEGATIVE (NEGATIVE) 11/27/18 21:20 Imaging Review: Imaging Impressions Abdomen CT 11/27/18 20:17 Impression: 1. No diverticulitis or acute intra-abdominal inflammatory process. 2. Normal appendix. Mild constipation. Findings discussed with Emergency Department physician, YAMILEX RAI at 2018 20:45. Assessment & Plan Assessment: 63 yo F w/ hx of chronic pain on chronic opiates and hx of PVD with iliac stent in place presents with acute on chronic abdominal pain. Plan: 1. LLQ pain - Symptoms are classic for diverticulitis (LLQ pain, fever, chills) but CT not consistent with this. She demonstrates 0/4 SIRS criteria here and her abdominal exam is reassuring. - Admit for observation - Clear liquids, mIVF - Pain management order set placed - GI consulted in ER, will see patient in the morning 2. Chronic pain - Patient has chronic back and neck pain for which she takes chronic opiates. - Pain management order set placed - Basal morphine SR, gabapentin, tizanidine continued 3. PVD - With history of iliac stenting; unclear if this could be contributing to LLQ pain. 4. HTN - Continue losartan 5. GERD - Continue PPI Diet - Clears, mIVF Code - Full Ppx - LMWH Dispo - Admit under observation status
[2018-11-28] MEDS: oxyCODONE IR 5 MG TAB PO PRN ×6 (04:37→21:49)
[2018-11-28] MEDS: IBUPROFEN 200 MG TAB PO PRN ×3 (05:00→17:03)
[2018-11-28 05:22] LABS: PLATELET COUNT 177 10^3/uL (150-400)
[2018-11-28] MEDS: morphINE SR 60 MG TAB PO SCH ×2 (06:10→17:04)
[2018-11-28] MEDS: GABAPENTIN 100 MG CAP PO SCH ×3 (08:29→20:29)
[2018-11-28] MEDS: ASPIRIN 81 MG CHEWABLE TAB PO SCH (08:30)
[2018-11-28] MEDS: PANTOPRAZOLE SODIUM 40 MG TAB PO SCH ×2 (08:30→17:03)
[2018-11-28] MEDS: CETIRIZINE 10 MG TAB PO PRN (09:25)
[2018-11-28] MEDS: NS 1,000 ML IV SCH (09:26)
[2018-11-28] MEDS: TEARS/DEXTRAN 70/HYPROMELLOSE 15 ML OPHT.BTL EACHEYE PRN ×2 (09:27→11:10)
--- NOTE | 2018-11-28 10:18 | HOSPPROG ---
Hospitalist Progress Note Assessment/Plan: This patient is known to me from previous admission in July when she had onset of left back, flank, abdominal pain DIAGNOSES: * Acute onset left lower quadrant abdominal pain, with 1 recent episode of melena and current mucous passage with stools -etiology of this is unknown, but she tells me that sigmoidoscopy in September showed some inflammatory change but with poor visualization because of the prep -she does have new anemia which may be potentially related to a colonic process if there is 1 present * New normocytic anemia seen today -uncertain etiology, question relation to bowel symptoms * Chronic musculoskeletal pains multiple locations and headaches, chronic daily prescribed narcotic use moderately high dose * Coronary artery disease, peripheral vascular disease, currently stable * Aortic insufficiency * History of cervical and lumbar fusion surgeries * 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 Sadler when he sees her * Continue pain management efforts, will try to avoid increasing narcotic, use other medications and therapies * Recheck hemoglobin in morning * Check iron studies and reticulocyte count to begin assessment of anemia cause SUBJECTIVE: OBJECTIVE Vitals reviewed: All stable without fever Exam: alert oriented skin warm dry color ok resps not labored lungs clear BSs heart regular abd soft nondistended, bowel sounds present; there is 1 very focal area of tenderness in the left lower quadrant with some guarding but no rebound and no palpable abnormality, otherwise abdominal palpation exam normal limbs warm, no edema iv site ok Imaging: I reviewed the images from her CT scan abdomen which did not show any specific abnormalities explaining her pain Lab data: Hemoglobin decreased to 10, normocytic, otherwise normal CBC Normal basic metabolic panel On review of her chart I find records here of colonoscopy in 2010 and colonoscopy EGD in 2016. Those studies revealed some benign colon polyps but no other abnormalities including normal findings on random colon biopsies. I do not have the records available from her recent sigmoidoscopy which was done in the outpatient setting elsewhere Objective: Vital Signs Temp Pulse Resp BP Pulse Ox 36.3 C 63 16 143/67 H 94 11/28/18 08:00 11/28/18 08:00 11/28/18 08:00 11/28/18 08:00 11/28/18 08:00 Laboratory Results 11/28/18 04:57 11/28/18 04:57 11/27/18 11/28/18 11/29/18 06:59 06:59 06:59 Intake Total 1020 Balance 1020 - Time Spent With Patient Time Spent with Patient: greater than 35 minutes Time Spent with Patient: Greater than 35 minutes spent on this patients care, greater than 50% of time spent counseling, educating, and coordinating care regarding the above mentioned plan. ICD10 Worksheet Patient Problems: Problems Problem Status Onset Abdominal pain Acute Back pain Acute Dizziness Acute Headache Acute Neck pain Acute
[2018-11-28] MEDS: ENOXAPARIN 40 MG/0.4 ML SYR SC SCH (10:28)
[2018-11-28] MEDS: OLOPATADINE HCL EACHEYE SCH (10:28)
[2018-11-28] MEDS: CEPACOL LOZENGE PO PRN (12:18)
[2018-11-28] MEDS: HYDROCODONE/APAP 5/325 TAB PO PRN ×2 (13:26→20:59)
[2018-11-28] MEDS ORDERED: MAGNESIUM CITRATE 300 ML BOTTLE PO ONE (14:42)
--- NOTE | 2018-11-28 14:42 | SOAPPROG ---
SOAP Progress Note Assessment/Plan: Assessment:Plan: see full dictated consult to follow llq pain, care home, query narcotic bowel n/v and heartburn colon when fully prepped - may take 2 days egd at same time with anesthesia Silvestre Sadler MD [phone] 11/28/18 14:40 Objective: Vital Signs Temp Pulse Resp BP Pulse Ox 36.3 C 61 18 141/80 H 90 L 11/28/18 08:00 11/28/18 11:15 11/28/18 11:15 11/28/18 11:15 11/28/18 11:15 Laboratory Results 11/28/18 04:57 11/28/18 04:57 11/27/18 11/28/18 11/29/18 05:59 05:59 05:59 Intake Total 1020 Balance 1020 ICD10 Worksheet Patient Problems: Problems Problem Status Onset Abdominal pain Acute Back pain Acute Dizziness Acute Headache Acute Neck pain Acute
--- NOTE | 2018-11-28 15:33 | ASMTCMCOM ---
CM Note CM Note Notes: Chart reviewed. Pt admitted for acute on chronic LLQ abd pain, fever, chills, diffuse joint pain. Pt's PMH includes chronic back and neck pain on chronic opiates, PVD w/iliac stent, HTN, GERD. GI consulted. Plan for egd and colonscopy once pt is fully prepped which could take 2 days. Pt had been admitted in Aug 2018 and was discharged to [facility]. Unclear if pt has a PCP. Exact DC needs TBD. CM to follow. Date Signed: 11/28/2018 03:33 PM Electronically Signed By:Abbi Wood RN
[2018-11-28] MEDS ORDERED: PEG 3350/NA SULF,BICARB,CL/KCL (GAVILYTE-G) 4000 ML BTL PO ONE (17:00)
--- NOTE | 2018-11-28 18:21 | PDMN ---
Medical Necessity Medical necessity: Pt meets IP criteria as of 11/28/2018 per and MCG M-05 ( Abdominal pain, undiagnosed); los > 2 mn for ongoing tx and evaluation of abdominal pain with melena and mucous passage with stools as well as new normocytic anemia with unknown etiology; requiring further workup, pain management, IVF, and IV anti-emetics; Hx CAD, PVD, and aortic insufficiency.
[2018-11-28] MEDS: LOSARTAN POTASSIUM 50 MG TAB PO SCH (20:25)
--- NOTE | 2018-11-28 21:22 | GCON ---
[f rep st] CONSULTATION DATE OF CONSULTATION: 11/28/2018 REFERRING PHYSICIAN: Dr. Chacon ADDITIONAL REQUESTING PHYSICIAN: Dr. Xiao in the hospital. INDICATION FOR CONSULTATION: Left lower quadrant pain. HISTORY OF PRESENT ILLNESS: The patient is a pleasant 63-year-old female, with a past medical history significant for chronic pain, on numerous narcotics, is well known to our outpatient GI service from her previous colonoscopies as well as evaluation of her abdominal pain. 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 She is somewhat resistant to the idea that she needs more laxatives as she says that she has a bowel movement every day, even though we think that she is still constipated nonetheless. She also has a history of pelvic floor dysfunction and has not gotten any biofeedback therapy since that was documented. She has been having this left lower quadrant pain for a number of years. It has been significantly exacerbated recently, and that is why she presented for the emergency room. She was seen by my nurse practitioners in June, September, and November of this year for her left lower quadrant pain. She underwent imaging studies, as well as flexible sigmoidoscopy, which did not reveal any significant abnormality, but was a poor prep. She does have a significant family history for cancers on her mother's side and there is a question of whether they would have a genetic abnormality, and her mother has been requested to get genetic testing and then the patient if necessary. The patient, in significant exacerbation of left lower quadrant pain, presented to the emergency room for evaluation. She has been scheduled for an outpatient CT scan, and this was performed when she came in. Because of her ongoing symptoms, I am called to help and evaluate and treat in that regard. There were no true relieving or aggravating factors for her pain. It always does seem to be in the left lower quadrant without any significant radiation. She also does complain of heartburn as well as nausea, vomiting, and states she has been taking Tums significantly over the last number of weeks. She describes her abdominal discomfort and nausea and vomiting to her steroid injections that she has received in the past. PAST MEDICAL HISTORY: Peripheral vascular disease, chronic pain. PAST SURGICAL HISTORY: Iliac stents, hysterectomy, cholecystectomy, laminectomies, 2 neck surgeries, and 3 shoulder surgeries on both sides. FAMILY HISTORY: Mother with uterine cancer under age 50, colon cancer, maternal aunt, early-onset stomach cancer in a maternal grandfather. SOCIAL HISTORY: She quit tobacco in 2012. Reportedly no alcohol. MEDICATIONS: Tylenol prn, [place] prn, ASA 81mg QOD, Zyrtec 10mg PRN, Lovenox 40mg daily, Neurontin 100mg tid and 300mg PO QHS, Cozaar 50mg QHS, MSContin 60mg BID, Oxycodone PRN, Zofran prn, Pantoprazole 40mg BID ALLERGIES: Penicillin causes anaphylaxis. Sulfa causes GI upset. Plavix causes a rash. Quinolones causes rash and nausea, vomiting. She also has some reaction to IV dye in the past, specifically Optiray and Demerol. She cannot remember her reaction, and prednisone makes her sick to her stomach. REVIEW OF SYSTEMS: A complete review of systems was performed and was negative other than in the HPI. PHYSICAL EXAM: GENERAL: Chronically ill-appearing female sitting in her bed. No acute distress. VITAL SIGNS: Temperature is 36.3, blood pressure is 141/80 , pulse is 61, respirations are 18. She is 94% on room air. EYES: Anicteric. TOMASA, EOMI. MOUTH: No lesions. Moist membranes. NECK: Supple. Full range of motion. No JVD. BACK: No spine tenderness. No CVA tenderness. LUNGS: Clear. CARDIAC: S1, S2. Regular rate and rhythm. No murmurs, rubs or gallops appreciated. ABDOMEN: Bowel sounds are normal in pitch and frequency. Abdomen is soft with some mild subxiphoid tenderness and moderate left lower quadrant tenderness without any guarding or rebound. No hepatosplenomegaly. EXTREMITIES: No cyanosis, clubbing, or edema. NEUROLOGIC : Cranial nerves intact. Nonfocal. She is alert, oriented x3. SKIN: No stigmata of advanced liver disease. LABORATORY DATA: From today, November 28: WBC 4.77, hemoglobin 10.7, hematocrit 31.8, platelet count 177. Sodium 135, potassium 4.4, chloride 105, bicarb 24, BUN 8, creatinine 0.7, glucose 85, calcium 8.5. Historical lab data on August 15, 2018, normal liver enzymes, bilirubin 0.4, AST 15, ALT 22, albumin 3.7, alkaline phosphatase 82. C-reactive protein was less than 5. On August 15, 2018, hemoglobin 13.2, hematocrit 37.5. On admission from November 27, hemoglobin 12.7, hematocrit 37.3. IMAGING: Abdominal CT scan performed November 27, 2018, with no oral or rectal contrast, but IV contrast. No evidence of diverticulitis or acute intraabdominal inflammatory process. Normal appendix. Mild constipation. Flexible sigmoidoscopy September 07, 2018. Exam to the left colon. Preparation of colon was fair. The exam was normal. From April 21, 2017, colonoscopy was normal. The prep was only fair and could only identify polyps greater than 6 mm, and they recommended a 3-year followup at most. From April 16, 2016, anorectal manometry showed motor and sensory abnormalities, decreased squeeze pressures, and slow sensation values. Biofeedback was recommended, but never performed. Colonoscopy and EGD from September 17, 2010: EGD showed some grade A esophagitis , small hiatal hernia, diffuse gastric erythema. Colonoscopy showed 3 small sessile polyps - adenomas . Random colon biopsies do not show any evidence of colitis. From October 30, 2010, pH monitoring and 24-hour pH with impedance showed abnormal upright exposure with 10.5%, with normal being up to 6.3%. Abnormal recumbent exposure of acid at 1.6%, with normal being up to 1.2%, and an abnormal Garry DeMeester score of 26.8, which is above the normal of 22. She had a normal number of reflux episodes, which was 23, expected is less than 48. Symptom association was positive for belching and cough, but negative for regurgitation. From October 16, 2010, HIDA scan with CCK patent ducts, but poor contractility. Ejection fraction at 10 minutes was 8%, at 15 minutes was 9%, at 20 minutes was 15%, and all of these are subnormal. ASSESSMENT: 1. Abdominal pain, left lower quadrant, unclear etiology, but this could be consistent with narcotic bowel and constipation. 2. Epigastric subxiphoid pain and some heartburn, nausea, vomiting. Symptoms most consistent with acid reflux. 3. Personal history of colon polyps. 4. Family history of malignancies that could be consistent with hereditary nonpolyposis colorectal cancer or Pulliam syndrome. 5. History of peripheral vascular disease with iliac stenting. 6. Hypertension. RECOMMENDATIONS: 1. We will prep for EGD and colonoscopy, although I am not sure that I will find an etiology for the patient's pain. 2. If EGD and colonoscopy are normal or do not explain the patient's pain, consider imaging studies of her iliac stent to make sure they are not stenosed. 3. Treatment of her other medical issues as per hospitalist. Thank you for allowing me to partake in this patient's healthcare. Do not hesitate to call me with any questions. /[id number]/MODL MTDD
[2018-11-29] MEDS: oxyCODONE IR 5 MG TAB PO PRN ×6 (00:54→22:34)
[2018-11-29] MEDS: tiZANidine HCL 2 MG TAB PO PRN ×3 (00:57→16:05)
[2018-11-29] MEDS: morphINE SR 60 MG TAB PO SCH ×2 (05:04→18:08)
[2018-11-29] MEDS: HYDROCODONE/APAP 5/325 TAB PO PRN ×3 (09:00→20:38)
[2018-11-29] MEDS: GABAPENTIN 100 MG CAP PO SCH ×3 (09:01→20:38)
[2018-11-29] MEDS: PANTOPRAZOLE SODIUM 40 MG TAB PO SCH ×2 (09:01→18:08)
[2018-11-29] MEDS: ENOXAPARIN 40 MG/0.4 ML SYR SC SCH (09:01)
[2018-11-29] MEDS: CETIRIZINE 10 MG TAB PO PRN (09:04)
[2018-11-29] MEDS: OLOPATADINE HCL EACHEYE SCH (09:20)
[2018-11-29] MEDS ORDERED: LR 1,000 ML IV ONE (10:53)
[2018-11-29] MEDS: ONDANSETRON DISINTEGRATING 4 MG TAB PO PRN (11:00)
[2018-11-29] MEDS ORDERED: PROPOFOL/EMULSION 500 MG/50 ML BOTTLE IV ONE (11:35)
[2018-11-29] MEDS ORDERED: PROPOFOL 200 MG/20 ML VIAL ONE (11:42)
[2018-11-29] MEDS ORDERED: NALOXONE HCL 0.4 MG/ML INJ IVP PRN (11:47)
[2018-11-29] MEDS ORDERED: ONDANSETRON 4 MG/2 ML VIAL IVP PRN (11:47)
[2018-11-29] MEDS ORDERED: fentaNYL 100 MCG/2 ML INJ IVP PRN (11:47)
[2018-11-29] MEDS ORDERED: HYDROmorphONE/DILAUDID 1 MG/ML INJ IVP PRN (11:47)
--- NOTE | 2018-11-29 11:51 | PDANEPAE ---
ANE History of Present Illness EGD & Colon ANE Past Medical History - Cardiovascular History Hx Hypertension: No Hx Arrhythmias: No Hx Chest Pain: No Hx Coronary Artery / Peripheral Vascular Disease: No Hx CHF / Valvular Disease: No Hx Palpitations: No Cardiovascular History Comment: peripheral arterial occlusive disease - Pulmonary History Hx COPD: No Hx Asthma/Reactive Airway Disease: No Hx Recent Upper Respiratory Infection: No Hx Oxygen in Use at Home: No Hx Sleep Apnea: No Sleep Apnea Screening Result - Last Documented: Negative Pulmonary History Comment: inhaler for seasonal allergies - Neurologic History Hx Cerebrovascular Accident: No Hx Seizures: No Hx Dementia: No Neurologic History Comment: closed head injury 2009 - Endocrine History Hx Diabetes: No - Renal History Hx Renal Disorders: No Renal History Comment: urinary incontinence - Liver History Hx Hepatic Disorders: No - Neurological & Psychiatric Hx Hx Neurological and Psychiatric Disorders: Yes Neurological / Psychiatric History Comment: anxiety, chronic pain - Cancer History Hx Cancer: Yes Cancer History Comment: colon adenomas, BCC - Congenital Disorder History Hx Congenital Disorders: No - GI History Hx Gastrointestinal Disorders: Yes Gastrointestinal History Comment: GERD - Other Health History Other Health History: arthritis,cataract, cerviacl and lumbar spine stenosis, left labral tear, left shoulder. - Chronic Pain History Chronic Pain: Yes (lower back and leg pain) - Surgical History Prior Surgeries: stents bilateral legs, cholecystectomy, lumbar back surgery, ANE Review of Systems Review of Systems: ANE Patient History - Allergies Allergies/Adverse Reactions: Penicillins Allergy (Severe, Verified 11/27/18 20:00) ANAPHYLACTIC meperidine HCl [From Demerol] Allergy (Intermediate, Verified 11/27/18 20:00) ANXIOUS prednisone [Prednisone] Allergy (Intermediate, Verified 11/27/18 20:00) Other-Enter Comments Sulfa (Sulfonamide Antibiotics) Allergy (Intermediate, Verified 11/27/18 20:00) NAUSEA clopidogrel bisulfate [From Plavix] Allergy (Verified 11/27/18 20:00) Rash ioversol [From Optiray 160] Allergy (Verified 11/27/18 20:00) Quinolones Allergy (Verified 11/27/18 20:00) Other-Enter Comments - Home Medications Home Medications: Diclofenac Sodium 1% [Voltaren Gel (*)] 4 gm TP QID PRN 04/04/18 [Last Taken ] Pantoprazole Sodium [Protonix 40mg (*)] 40 mg PO BIDMEAL 04/04/18 [Last Taken ] morphINE SR [MS Contin/Oramorph 60 mg (*)] 60 mg PO BID@04/04/18 [Last Taken 11/26/18] Aspirin [Aspirin 81mg (*)] 81 mg PO Q2D 04/07/18 [Last Taken 11/27/18] Fexofenadine HCl [Leonarda Allergy] 180 mg PO DAILY PRN 08/08/18 [Last Taken 06:00] Gabapentin [Neurontin 300 MG (*)] 300 mg PO HS 08/08/18 [Last Taken 11/26/18] Acetaminophen [Tylenol ES 500 mg (*)] 1,000 mg PO Q8HRS PRN 11/27/18 [Last Taken Unknown] Docusate Sodium [Colace 100 MG (*)] 100 mg PO BID PRN 11/27/18 [Last Taken Unknown] Levocetirizine Dihydrochloride [Xyzal] 5 mg PO DAILY PRN 11/27/18 [Last Taken Unknown] Lidocaine 4%/Menthol 1% [Icy Hot Lidocaine/Menthol 4%/1% Patch (*)] 1 patch TD DAILY PRN 11/27/18 [Last Taken Unknown] Losartan Potassium [Cozaar 50 mg (*)] 50 mg PO HS 11/27/18 [Last Taken 11/26/18] Olopatadine HCl [Pazeo] 2.5 ml EACHEYE DAILY 11/27/18 [Last Taken 11/27/18] Tears/Dextran 70/Hypromellose [Natural Balance Tears (*)] 1 drop EACHEYE Q2 PRN 11/27/18 [Last Taken Unknown] oxyCODONE HCL/ACETAMINOPHEN [Percocet 10-325 mg Tablet] 1 each PO TID 11/27/18 [ Last Taken 11/27/18 14:00] oxyCODONE/APAP 5/325 [Percocet 5/325 (*)] 1 tab PO HS 11/27/18 [Last Taken 11/26] tiZANidine HCL [Zanaflex 2MG (*)] 4 mg PO Q6 PRN 11/27/18 [Last Taken 11/26/18] - NPO status NPO Since - Liquids (Date): 11/29/18 NPO Since - Liquids (Time): 09:00 - Smoking Hx Smoking Status: Former smoker - Family Anes Hx Family Hx Anesthesia Complications: none ANE Labs/Vital Signs - Labs Result Diagrams: 11/28/18 04:57 11/28/18 04:57 - Vital Signs Blood Pressure: 141/79 Heart Rate: 58 Respiratory Rate: 16 O2 Sat (%): 92 Height: 175.26 cm Weight: 81.647 kg ANE Physical Exam - Airway Neck exam: FROM Mallampati Score: Class 2 Mouth exam: normal dental/mouth exam - Pulmonary Pulmonary: clear to auscultation - Cardiovascular Cardiovascular: regular rate and rhythym - ASA Status ASA Status: II ANE Anesthesia Plan Anesthesia Plan: GA with mask
--- NOTE | 2018-11-29 12:17 | POSTANESTH ---
Post Anesthetic Evaluation Cardiovascular Status: Normal, Stable Respiratory Status: Normal, Stable Level of Consciousness/Mental Status: Can Participate in Eval, Alert and Oriented Pain Control: Adequate, Prn Tx Ordered Nausea/Vomiting Control: Adequate, Prn Tx Ordered Complications Possibly Related to Anesthesia: None Noted
--- NOTE | 2018-11-29 12:25 | GIREPORT ---
[facility] Surgical Services - Endoscopy Department Patient Name: Gisel Acevedo Procedure Date: 11/29/2018 11:03 AM Patient Type: Inpatient Attending MD/ ER Physician: Silvestre Sadler MD Procedure: Upper GI endoscopy Indications: Epigastric abdominal pain, Abdominal pain in the left lower quadrant, Heartburn Providers: Silvestre Sadler MD Referring MD: Jessica Ibarra MD Medicines: Propofol per Anesthesia Complications: No immediate complications. Estimated blood loss: Minimal. Description of Procedure: After obtaining informed consent, the endoscope was passed under direct vision. Throughout the procedure, the patient's blood pressure, pulse, and oxygen saturations were monitored continuously. The Endoscope was intro duced through the mouth, and advanced to the third part of duodenum. The uppe r GI endoscopy was accomplished without difficulty. The patient tolerated th e procedure well. Findings: The examined esophagus was normal. Scattered minimal inflammation characterized by adherent blood, erythem a and friability was found in the gastric antrum. Biopsies were taken with a cold forceps for histology. Estimated blood loss was minimal. The examined duodenum was normal. Biopsies for histology were taken wit h a cold forceps for evaluation of celiac disease. Estimated blood loss was minimal. The exam was otherwise without abnormality. Estimated Blood Loss: Estimated blood loss was minimal. Post Op Diagnosis: - Normal esophagus. - Gastritis. Biopsied. - Normal examined duodenum. Biopsied. - The examination was otherwise normal. Recommendation: - Await pathology results. - My office will call with the pathology result with 5-7 days. If you h ave not heard from my office by 12-14, do not assume the pathology is obby l, please call [phone] to get the pathology results. - Follow an antireflux regimen. - Use Protonix (pantoprazole) 40 mg PO BID. Take 30-60 minutes before breakfast and dinner. - Use Zantac (ranitidine) 300 mg PO at bedtime for 1 month. - Perform a colonoscopy today. - Return patient to hospital ge for ongoing care. - Return to primary care physician as previously scheduled. - Thank you for allowing me to help in your patient's care. Do not hesi castro to call with any questions. Attending Participation: I personally performed the entire procedure. Viktoriya Baez M.D Silvestre Sadler MD 11/29/2018 12:24:56 PM This report has been signed electronicallyMattarleen Sadler MD Number of Addenda: 0 Note Initiated On: 11/29/2018 11:03 AM Total Procedure Duration Time 0 hours 5 minutes 19 seconds [email or web address]
[2018-11-29] MEDS ORDERED: OXYCODONE/APAP 5/325 TAB ONE (12:37)
[2018-11-29] MEDS ORDERED: HYDROCODONE/APAP 5/325 TAB ONE (12:41)
[2018-11-29] MEDS ORDERED: oxyCODONE IR 5 MG TAB ONE ×2 (12:46→12:48)
--- NOTE | 2018-11-29 12:48 | GIREPORT ---
[facility] Surgical Services - Endoscopy Department Patient Name: Gisel Acevedo Procedure Date: 11/29/2018 11:05 AM Patient Type: Inpatient Attending MD/ ER Physician: Silvestre Sadler MD Procedure: Colonoscopy Indications: Abdominal pain in the left lower quadrant, Personal history of colonic polyps, Abnormal MRI of the GI tract Providers: Silvestre Sadler MD Referring MD: Jessica Ibarra MD Medicines: Propofol per Anesthesia = IV general with spont resps Complications: No immediate complications. Estimated blood loss: Minimal. Description of Procedure: After obtaining informed consent, the scope was passed under direct vis ion. Throughout the procedure, the patient's blood pressure, pulse, and oxyg en saturations were monitored continuously. The Colonoscope with irrigatio n channel was introduced through the anus and advanced to the terminal il eum, with identification of the appendiceal orifice and IC valve. The colono scopy was performed without difficulty. The patient tolerated the procedure w ell. The quality of the bowel preparation was good. Findings: The digital rectal exam was normal. The terminal ileum appeared normal. A scattered area of mildly altered vascular and erythematous mucosa was found in the sigmoid colon, in the transverse colon and in the ascendin g colon. Biopsies were taken with a cold forceps for histology. Estimated blood loss was minimal. The sigmoid colon, descending colon and cecum appeared normal. Biopsies for histology were taken with a cold forceps from the entire colon for evaluation of microscopic colitis. Estimated blood loss was minimal. The exam was otherwise without abnormality. Estimated Blood Loss: Estimated blood loss was minimal. Post Op Diagnosis: - The examined portion of the ileum was normal. - Altered vascular and erythematous mucosa in the sigmoid colon, in the transverse colon and in the ascending colon. Biopsied. - The sigmoid colon, descending colon and cecum are normal. Biopsied. - The examination was otherwise normal. Recommendation: - Await pathology results. - My office will call with the pathology result with 5-7 days. If you h ave not heard from my office by 12-14, do not assume the pathology is boby l, please call [phone] to get the pathology results. - Repeat colonoscopy in 2 years for surveillance. - Has seen our genetic clinic and they recommended her mother get teste d, then patient get tested. If negative then increase interval to 5 years. - Return patient to hospital ge for ongoing care. - Query narcotic bowel with overflow issue? - Suggest service associate laxatives to keep colon clear. - Thank you for allowing me to help in your patient's care. Do not hesi castro to call with any questions. Attending Participation: I personally performed the entire procedure. Viktoriya Baez M.D Silvestre Sadler MD 11/29/2018 12:47:36 PM This report has been signed electronicallyMatthew MD Viktoriya Number of Addenda: 0 Note Initiated On: 11/29/2018 11:05 AM Total Procedure Duration Time 0 hours 19 minutes 8 seconds [email or web address]
--- NOTE | 2018-11-29 16:01 | HOSPPROG ---
Hospitalist Progress Note Assessment/Plan: Diagnostic studies done during this admission: -CT scan of abdomen with no acute abnormalities or anything to explain her symptoms -EGD with mild diffuse gastritis -colonoscopy with nonspecific findings of erythema and inflammatory vascular changes that sound mild with biopsies taken pending DIAGNOSES: * Abdominal pain, chronic with an acute left lower quadrant pain with no associated laboratory or radiologic findings, question significance of colonoscopist abnormality described above * New normocytic anemia seen today -uncertain etiology, question relation to bowel symptoms * Chronic musculoskeletal pains multiple locations and headaches, chronic daily prescribed narcotic use moderately high dose * Coronary artery disease, peripheral vascular disease, currently stable * Aortic insufficiency * History of cervical and lumbar fusion surgeries * 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 Sadler. EGD shows some diffuse gastritis. The patient chronically takes Prilosec twice a day. Dr. Sadler is recommending addition of Zantac at bedtime at this point. Colonoscopy shows diffuse erythema and nonspecific vascular inflammatory pattern in the colon without any more specific diagnostic features. Biopsies were taken of this area as well as of small bowel. No specific treatment recommendations until biopsies are back. PLANS: * At this point the patient is stable for discharge to home, however her home is actually being moved by her family members and assistance to a new home today and she will not really have a place to be able to stay until tomorrow. Will plan discharge tomorrow morning 11/30 * Added Zantac at bedtime to the proton pump inhibitor * She will follow up in GI clinic for results of her colonoscopy and any treatments for recommendation would be made at that time if necessary * Regarding her normocytic anemia, would wait to see if there is an inflammatory bowel disease that might explain and anemia of chronic disease; if not, she may need further evaluation for cause of this which can be done in the outpatient setting * She complains today of diffuse myalgias sore throat and night sweats. Yesterday she told me that these symptoms had been present for just a few days and I thought there probably viral. Today in reviewing these symptoms it is very difficult to determine from her story when any of these particular symptoms really started. She does tell me that she had seen a train station server for these symptoms in the past. No diagnostic findings were arrived at. I recommend that if again nothing seen on the a colonoscopy biopsies that is very revealing she might recheck with the train station server SUBJECTIVE: The patient continues to have the same chronic abdominal pain back pain, multiple joint pains that she always has. Today complains of a sore throat, very difficult to determine when this actually started as I review with her. Yesterday she told me it started in the last couple days but now she is saying it is chronic. Today she also mentions chronic night sweats which she has not mentions to me before. Again very difficult to determine how long these have been going on but she has had previous assessment for the sweats along with her chronic joint pains with the train station server which was unrevealing. She is hungry and eating well today, no nausea vomiting no bleeding. OBJECTIVE Vitals reviewed: All stable without fever Exam: alert oriented, fairly anxious which is typical for her skin warm dry color ok resps not labored lungs clear BSs heart regular abd soft nondistended, bowel sounds present; abdomen see med actually nontender on exam today with no palpable abnormalities limbs warm, no edema iv site ok Lab data: Hemoglobin decreased to 10, normocytic, otherwise normal CBC Normal basic metabolic panel Objective: Vital Signs Temp Pulse Resp BP Pulse Ox 36.6 C 52 L 16 141/68 H 93 11/29/18 15:27 11/29/18 15:27 11/29/18 15:27 11/29/18 15:27 11/29/18 15:27 11/28/18 11/29/18 11/30/18 06:59 06:59 06:59 Intake Total 300 Balance 300 ICD10 Worksheet Patient Problems: Problems Problem Status Onset Abdominal pain Acute Back pain Acute Dizziness Acute Headache Acute Neck pain Acute
[2018-11-29] MEDS: LOSARTAN POTASSIUM 50 MG TAB PO SCH (20:38)
[2018-11-29] MEDS: GABAPENTIN 300 MG CAP PO SCH (20:38)
[2018-11-29] MEDS ORDERED: RANITIDINE SYRUP 15 MG/1 ML UDSYR PO SCH (21:00)
[2018-11-29] MEDS ORDERED: RANITIDINE HCL 150 MG/10 ML UDCUP PO SCH (21:00)
[2018-11-29] MEDS: CEPACOL LOZENGE PO PRN (22:42)
[2018-11-30] MEDS: CEPACOL LOZENGE PO PRN ×2 (00:04→02:39)
[2018-11-30] MEDS: TEARS/DEXTRAN 70/HYPROMELLOSE 15 ML OPHT.BTL EACHEYE PRN ×2 (00:05→08:22)
[2018-11-30] MEDS: HYDROCODONE/APAP 5/325 TAB PO PRN ×3 (00:08→10:05)
[2018-11-30] MEDS: oxyCODONE IR 5 MG TAB PO PRN ×3 (02:35→08:29)
[2018-11-30] MEDS: ONDANSETRON DISINTEGRATING 4 MG TAB PO PRN (02:39)
[2018-11-30] MEDS: morphINE SR 60 MG TAB PO SCH (05:28)
[2018-11-30] MEDS: IBUPROFEN 200 MG TAB PO PRN (05:28)
[2018-11-30 07:12] VITALS: BP 140/70
[2018-11-30] MEDS: PANTOPRAZOLE SODIUM 40 MG TAB PO SCH (08:15)
[2018-11-30] MEDS: ASPIRIN 81 MG CHEWABLE TAB PO SCH (08:15)
[2018-11-30] MEDS: GABAPENTIN 100 MG CAP PO SCH (08:16)
[2018-11-30] MEDS: ENOXAPARIN 40 MG/0.4 ML SYR SC SCH (08:16)
--- NOTE | 2018-11-30 08:31 | HOSPPROG ---
Hospitalist Progress Note Assessment/Plan: 63 yo F w/ hx of chronic pain on chronic opiates and hx of PVD with iliac stent in place presents with acute on chronic abdominal pain. First encounter, chart reviewed. *abdominal pain, LLQ -EGD with mild diffuse gastritis -colonoscopy shows diffuse erythema and nonspecific vascular inflammatory pattern in the colon without any more specific diagnostic features -GI is recommending adding Zantac at night -f/u w Dr Sadler in regards to biopsies *new normocytic anemia -further evaluation in OP setting -reviewed these labs w Betsy *viral symptoms for several days -has seen a productivity engineer in the past -if nothing seen on colonoscopy to f/u w a productivity engineer *chronic pain on narcotics -f/u with her pain doctor -planning to get back surgery down at [facility] for chronic issues -hx of cervical and lumbar fusion surgeries *AI *hx of TBI -has chronic memory deficits -compensates w this by writing things down *plan: dc home w f/u with GI, rheumatology, poss hematology Subjective: Blank is c/o feeling bloated today. Objective: Vital Signs Temp Pulse Resp BP Pulse Ox 36.7 C 62 16 140/70 H 96 11/30/18 07:07 11/30/18 07:07 11/30/18 07:07 11/30/18 07:07 11/30/18 07:07 11/29/18 11/30/18 12/01/18 05:59 05:59 05:59 Intake Total 300 Balance 300 - Physical Exam Constitutional: uncomfortable Eyes: PERRL Ears, Nose, Mouth, Throat: hearing normal Cardiovascular: regular rate and rhythym Respiratory: no respiratory distress Gastrointestinal: normoactive bowel sounds, other (bloated), No tenderness Skin: warm Musculoskeletal: full muscle strength Neurologic: AAOx3 Psychiatric: interacting appropriately ICD10 Worksheet Patient Problems: Problems Problem Status Onset Abdominal pain Acute Back pain Acute Dizziness Acute Headache Acute Neck pain Acute
[2018-11-30] MEDS: CETIRIZINE 10 MG TAB PO PRN (10:05)
--- NOTE | 2018-11-30 10:39 | ASMTDCNOTE ---
Case Management Discharge Discharge Order Complete? Answers: Yes Patient to Obtain Answers: via Family Medications Transportation Arranged Answers: Family/Friends Transport will Pick (Date 11/30/2018 12:00 AM & Time) Family Notified Answers: Yes Notes: by pt Discharge Comments Notes: Spoke with pt in the room who seemed anxious regarding impending move today to new household, stating movers are at her home right now. Dtr to waste picker patient. Pt moving comfortably and independent in the room. Pt comfortable discharging independently and reports she has an outpatient PT and unskilled help in the home 2x a day. No CM needs noted at this time. Date Signed: 11/30/2018 10:38 AM Electronically Signed By:Jessica Jj
--- NOTE | 2018-11-30 10:42 | ASMTLACE ---
LAURENCEE Length of stay for Answers: 3 days current admission Acuity / Level of Answers: Yes Care: Did the patient have an inpatient admission? Comorbidities - select Answers: Opioid dependence all that apply / Chronic pain Peripheral vascular disease Other Notes: HTN, GERD, chronic back and neck pain # of Emergency department Answers: 1-2 visits in the last 6 months Score: 13 Date Signed: 11/30/2018 10:41 AM Electronically Signed By:Jessica Jj
--- NOTE | 2018-11-30 10:51 | GDS ---
[f rep st] DISCHARGE SUMMARY DISCHARGE DIAGNOSES: 1. Left lower quadrant abdominal pain. 2. New normocytic anemia. 3. Viral symptoms for several days. 4. Chronic pain, on continuous chronic narcotics. 5. Aortic insufficiency. 6. History of traumatic brain injury. CONSULTATION: Dr. Silvestre Sadler. Briefly, the patient is a 63-year-old woman with a history of chronic pain on chronic opiates and history of peripheral vascular disease with iliac stents in place, who presented to the emergency room with acute on chronic abdominal pain. She was here in August for management of neck pain, back pain and left lower quadrant pain. The pain worsened to the point where her opiates were not sufficient. She had a CT scan performed in the emergency room which showed no diverticulitis or intra abdominal inflammatory process. This showed normal appendix and mild constipation. Subsequently, she was seen and evaluated by Dr. Salder. On 11/29 she had an upper GI endoscopy that noted that she had gastritis. The plan is for her to be on a PPI twice daily as well as Zantac. In addition, she had a colonoscopy that showed scattered area of mildly altered vascular and erythematous mucosa. Thus, descending sigmoid colon and transverse colon and ascending colon biopsies were checked at that time. Today , she is eating and drinking well. She did not have any significant pain during my evaluation. She will be discharged home with close followup with Dr. Sadler. HOSPITAL COURSE BY PROBLEM: 1. Abdominal pain in the left lower quadrant. Gastroenterology is recommending adding Zantac to her daily regimen and to follow up with Dr. Sadler in regard to biopsies. 2. New normocytic anemia. I reviewed her studies with her. Further follow up with her primary care provider. She may need a medical operations supervisor for further evaluation. 3. Viral symptoms for several days. She has seen a bilingual sales assistant in the past for this. To follow up with her primary care provider and possible further evaluation with a bilingual sales assistant. 4. Chronic pain. On narcotics. She will follow up with her pain doctor. She also is planning to get back surgery down at [facility] to help alleviate her back pain. 5. Aortic insufficiency, stable. 6. History of traumatic brain injury. She has chronic memory deficits. She does well with writing things down. DISCHARGE CONDITION: Stable. Blood pressure is 140/70, heart rate is 62, respiratory rate 16, O2 sats on room air 96%, temperature is 36.7 Celsius. MEDICATIONS AT DISCHARGE: Please see the EMR. DISCHARGE INSTRUCTIONS: 1. To follow up with Dr. Sadler if she does not hear from them in the next 12- 14 days. 2. To take Protonix 40 mg twice daily. Take 30-60 minutes before breakfast and dinner. 3. Take Zantac 300 mg at bedtime for a month. 4. Follow up with her primary care doctor in regard to her anemia and to get her labs rechecked in 2 weeks. 5. If her results for her colonoscopy are negative she needs to see a bilingual sales assistant for further evaluation. 6. If no clear-cut etiology is found for anemia, follow up with Hematology. TIME SPENT: Greater than 30 minutes discharging and coordinating the patient's care. /[id number]/MODL MTDD
--- NOTE | 2018-11-30 11:18 | ASDISCHSUM ---
Discharge Information Plan Status:Home with No Needs Medically Cleared to Leave:11/30/2018 Discharge Date:11/30/2018 CM D/C Disposition:Home, Routine, Self-Care ADT D/C Disposition: Projected Discharge Date:11/30/2018 Transportation at D/C:Family Discharge Delay Reason: Follow-Up Date:11/30/2018 Discharge Slot: Final Diagnosis:anemia, gastritis, abd pain Placement Information Patient Contact Information Contact Name:DELLA Relationship:Daughter Address: Work Phone: City: [facility] Phone: State/Zip Code: Email: Financial Information Financial Class:Medicare Primary Plan Desc:MEDICARE INPATIENT Primary Plan Number:[id number] Secondary Plan Desc:MEDICAID [place] Secondary Plan Number:[id number] Assessment Information [facility] CM Progress Note CM Note CM Note Notes: Chart reviewed. Pt admitted for acute on chronic LLQ abd pain, fever, chills, diffuse joint pain. Pt's PMH includes chronic back and neck pain on chronic opiates, PVD w/iliac stent, HTN, GERD. GI consulted. Plan for egd and colonscopy once pt is fully prepped which could take 2 days. Pt had been admitted in Aug 2018 and was discharged to [facility]. Unclear if pt has a PCP. Exact DC needs TBD. CM to follow. Date Signed: 11/28/2018 03:33 PM Electronically Signed By:Abbi Wood RN LACE LACE Length of stay for Answers: 3 days current admission Acuity / Level of Answers: Yes Care: Did the patient have an inpatient admission? Comorbidities - select Answers: Opioid dependence all that apply / Chronic pain Peripheral vascular disease Other Notes: HTN, GERD, chronic back and neck pain # of Emergency department Answers: 1-2 visits in the last 6 months Score: 13 Date Signed: 11/30/2018 10:41 AM Electronically Signed By:Jessica Jj Case Management Discharge Plan Note Case Management Discharge Discharge Order Complete? Answers: Yes Patient to Obtain Answers: via Family Medications Transportation Arranged Answers: Family/Friends Transport will Pick (Date 11/30/2018 12:00 AM & Time) Family Notified Answers: Yes Notes: by pt Discharge Comments Notes: Spoke with pt in the room who seemed anxious regarding impending move today to new household, stating movers are at her home right now. Dtr to cotton picker patient. Pt moving comfortably and independent in the room. Pt comfortable discharging independently and reports she has an outpatient PT and unskilled help in the home 2x a day. No CM needs noted at this time. Date Signed: 11/30/2018 10:38 AM Electronically Signed By:Jessica Jj Intervention Information Intervention Type:*IM-Signed Date of Service:11/30/2018 11:17 AM Patient Type:Inpatient Staff Member:Jessica Jj Hours: Discipline:Assurance Assistant Severity: Comment:
== END 2018-11-30 11:34 | disposition home or self-care (01) | DRG 392 ==
LOC: F3E 22:42 → OBSVTOIN 11-28 17:41
PROVIDERS: ADMIT Student in an Organized Health Care Education/Training Program; ATTEND Hospitalist
PROC: 0DBM8ZX Excision of Descending Colon, Via Natural or Artificial Opening Endoscopic, Diagnostic (ICD-10-PCS; principal; 2018-11-29 11:45)
PROC: 0DBH8ZX Excision of Cecum, Via Natural or Artificial Opening Endoscopic, Diagnostic (ICD-10-PCS; principal; 2018-11-29 11:45)
PROC: 0DBL8ZX Excision of Transverse Colon, Via Natural or Artificial Opening Endoscopic, Diagnostic (ICD-10-PCS; principal; 2018-11-29 11:45)
PROC: 0DBK8ZX Excision of Ascending Colon, Via Natural or Artificial Opening Endoscopic, Diagnostic (ICD-10-PCS; principal; 2018-11-29 11:45)
PROC: 0DB98ZX Excision of Duodenum, Via Natural or Artificial Opening Endoscopic, Diagnostic (ICD-10-PCS; principal; 2018-11-29 11:45)
PROC: 0DB68ZX Excision of Stomach, Via Natural or Artificial Opening Endoscopic, Diagnostic (ICD-10-PCS; principal; 2018-11-29 11:45)
PROC: 0DBN8ZX Excision of Sigmoid Colon, Via Natural or Artificial Opening Endoscopic, Diagnostic (ICD-10-PCS; principal; 2018-11-29 11:45)
DX: K29.50 Unspecified chronic gastritis without bleeding (principal); E86.9 Volume depletion, unspecified; K59.00 Constipation, unspecified; D64.9 Anemia, unspecified; G89.29 Other chronic pain; I35.1 Nonrheumatic aortic (valve) insufficiency; I10 Essential (primary) hypertension; K21.9 Gastro-esophageal reflux disease without esophagitis; Z87.820 Personal history of traumatic brain injury; Z87.891 Personal history of nicotine dependence; Z80.49 Family history of malignant neoplasm of other genital organs; Z80.0 Family history of malignant neoplasm of digestive organs
CPT/HCPCS: 82435-PO; 82565-PO; 82947-PO; 84132-PO; 84295-PO; 84520-PO; 85014-ER; 96374; G0378; J1170; J1650; J2405; J2704; Q9967

== ENCOUNTER 2019-01-24 14:20 | Emergency (ER) | payer OTHER, MEDICAID | END 2019-01-24 17:03 | disposition home or self-care (01) | LOC: CED 14:20 ==

== ENCOUNTER 2019-01-27 09:55 | Inpatient (IN) | payer OTHER, MEDICAID | END 2019-01-31 17:35 | disposition home or self-care (01) | LOC: F3N 16:07 ==